=== PATIENT | male | born 1985 | race Caucasian/White ===

== ENCOUNTER → 2020-04-11 17:09 | Outpatient (CLI) | payer OTHER, SELFPAY ==
[2020-04-11 07:10] VITALS: BMI 33.8
== END ==
PROVIDERS: Referring Provider Physician Assistant Surgical; Visit Provider Physician Assistant Surgical
DX: Z20.828 Contact with and (suspected) exposure to other viral communicable diseases (principal)
CPT/HCPCS: 87635; C9803; U0003

== ENCOUNTER 2022-01-13 11:04 | Emergency (ER) | payer OTHER, SELFPAY ==
[2022-01-13 11:07] VITALS: BP 135/52; PULSE 82; RESP 17; TEMP 36.4; O2SAT 99; BMI 38.1
--- NOTE | 2022-01-13 11:26 | CT_ITS ---
STUDY: CT BRAIN WITHOUT CONTRAST REASON FOR EXAM: Male, 36 years old. Syncope, head injury RADIATION DOSAGE (If Supplied By Facility): CTDIvol = ( 44.99 ) mGy, DLP = ( 829.85 ) mGycm TECHNIQUE: Transaxial CT imaging of the brain was performed without administration of intravenous contrast material. Individualized dose optimization techniques were used for this CT. COMPARISON: No relevant priors. FINDINGS: Normal soft tissue structures. Normal calvarium. Normal size ventricles and extra-axial spaces for the patient''s age. Normal white matter tracts of the cerebral hemispheres. Normal basal ganglia and thalami. Normal brainstem. Normal cerebellum. There is no intracranial hemorrhage. There are no findings of an acute ischemic infarction. Partially visualized retention cyst in the right maxillary sinus. CT/Brain/Head without Contrast IMPRESSION: No acute intracranial process. Electronically Signed: Buck Richmond MD at 12:33 EDT ,
--- NOTE | 2022-01-13 11:27 | EKG12_ITS ---
Test Reason : SYNCOPE Blood Pressure : / mmHG Vent. Rate : 058 BPM Atrial Rate : 058 BPM P-R Int : 154 ms QRS Dur : 110 ms QT Int : 414 ms P-R-T Axes : -14 033 027 degrees QTc Int : 406 ms Sinus bradycardia Nonspecific ST abnormality Abnormal ECG Confirmed by OLMAN GALDAMEZ, [employer] ([id number]), state editor MANE TORRES ([id number]) on 01/14/2022 10:54:15 AM Referred By: Confirmed By:NATO THURMAN MD
--- NOTE | 2022-01-13 11:28 | EDS_ITS ---
HPI History of Present Illness Chief Complaint: Syncope Detail of Chief Complaint: Syncopal episode that occurred yesterday Informant: patient Narrative Narrative: Patient presents to the emergency department after having a syncopal episode yesterday. Patient states that he was eating lunch with his when he dropped his receipt on the ground. Patient bent over from a seated position to hand picker the receipt and had a sudden onset of severe pain in his left shoulder. Patient then developed a pain and discomfort in his head that radiated down to his chest that he became nauseated. Patient felt lightheaded. Next thing he remembered was waking up on the floor and his over him. He was unconscious for less than a minute. Patient did bite his tongue but no seizure activity was noted. Patient states he does have history of syncope and happens occasionally from time to time. He denies any chest pain or shortness of breath. He denies recent illness. Prior similar symptoms: Yes [facility] Medical History (Updated 01/13/22 @ 12:[address] Yovana Callejas, DO) Arthritis History of cancer Neck pain Shoulder pain Home Medications naproxen sodium 220 mg capsule 220 mg PO BID PRN 04/11/20 [History Last Taken Unknown] Allergy/AdvReac Type Severity Reaction Status Date / Time lidocaine Allergy Unknown Verified 01/13/22 11:06 Family History Mother Cancer Social History (Updated 04/11/20 @ 07:20 by Medhat DOLL, PA) Smoking Status: Never smoker alcohol intake: never ROS ROS ED Constitutional Constitutional ED: Reports systems reviewed and no addt'l complaints, except as documented; Denies body ache(s), change in weight or chills Eyes Eyes: Denies acute decrease in peripheral vision, change in vision, double vision or loss of vision ENT ENT ED: Reports none; Denies ear pain, lip swelling, loss taste/smell, neck pain, otalgia or sore throat Cardiovascular Cardiovascular: Reports none; Denies abdominal pain, chest pain with activity, leg edema, lightheadedness, palpitations, rapid heart rate or syncope Respiratory/Chest Respiratory/Chest: Reports none; Denies change in mental status, dry cough, dyspnea, hemoptysis, shortness of breath at rest or shortness of breath with exertion Gastrointestinal Gastrointestinal: Reports none and nausea; Denies abdominal pain, change in stool character, diarrhea, hematemesis, hematochezia, melena, rectal bleeding or vomiting Genitourinary Genitourinary ED: Reports none; Denies abdominal discomfort, anuria, dysuria, genital pain or polyuria Musculoskeletal Musculoskeletal: Reports none; Denies arthralgias, back pain, difficulty walking, extremity pain, muscle weakness or myalgias Integumentary Reports none; Denies abscess or rash Neurologic Neurologic: Reports headache(s) Psychiatric Psychiatric: Reports systems reviewed and no addt'l complaints, except as documented and none; Denies behavioral changes, confusion, difficulty concentrating, hallucinations, suicidal ideation, tactile hallucinations or visual hallucinations Endocrine Endocrinology: Denies none, cold intolerance, excessive sweating, fatigue or heat intolerance Hematologic/Lymphatic Hematologic/Lymphatic: Reports none; Denies anemia, easy bleeding or easy bruising Allergic/Immunologic Allergic/Immunologic ED: Denies as per HPI, none, lip swelling, mouth swelling, throat swelling, tongue swelling or hives EXAM Physical Exam Const Vital Signs: 01/13/22 11:07 01/13/22 11:50 Temperature 97.6 F L Temperature Source Temporal Pulse Rate 82 Pulse Rate [Lying] 54 L Pulse Rate [Sitting (for 1 minute prior to obtaining)] 63 Pulse Rate [Standing (for 1 minute prior to obtaining)] 88 Respiratory Rate 17 Blood Pressure 135/52 H Blood Pressure [Lying] 144/52 H Blood Pressure [Sitting (for 1 minute prior to obtaining)] 152/86 H Blood Pressure [Standing (for 1 minute prior to obtaining)] 151/90 H Blood Pressure Mean 79 Blood Pressure Mean [Lying] 82 Blood Pressure Mean [Sitting (for 1 minute prior to obtaining)] 108 Blood Pressure Mean [Standing (for 1 minute prior to obtaining)] 110 Pulse Ox 99 Oxygen Delivery Method Room Air Positive well nourished and well developed General Appearance ED: well developed and NAD HEENT Reports TM's clear and moist mucous membranes HEENT Narrative: Patient has superficial abrasions to the left side of the forehead and left cheek. No bony tenderness on exam. Patient does have a small bite wound to the tip of his tongue. normocephalic, atraumatic and trauma; Negative for tenderness Tympanic Membrane ED: Yes TM's clear Eyes PERRL and EOMs intact bilaterally General Eye ED: Negative for pale conjunctiva or scleral icterus Neck no lymphadenopathy, supple and no JVD General: Negative for tenderness Chest Wall inspection of chest normal and palpation of chest normal Chest: Negative for tenderness Resp normal respiratory effort and clear to auscultation bilaterally Effort and Inspection: Negative for respiratory distress or pain with movement Auscultation: Negative for rhonchi, wheezes or diminished lung sounds Cardio regular rate, regular rhythm, S1 normal heart sound, S2 normal heart sound and no murmurs Peripheral Pulses: pulses 2+ throughout GI normal to inspection, nondistended, normoactive bowel sounds, soft to palpation, non-tender, non-distended and no masses Back/Spine no CVA tenderness and no thoracic nor lumbar tenderness Extremity normal to inspection General Extremety ED: Negative for edema General Extremity: Negative for edema Neuro oriented x3, CN's II-XII intact bilaterally, no sensory deficits noted and gait normal Neuro Narrative: Finger-nose and heel melgar testing within normal limits, negative Romberg, negative for drift, fundi benign Sensorium / Orientation: awake, alert, oriented to person, oriented to place and oriented to time Motor Exam: strength 5/5 throughout and strength abnormal Psych mental status grossly normal Skin no rashes or lesions noted and no wounds MDM MDM MDM Narrative Medical decision making narrative: IV line established on arrival. Lab work unremarkable. CT scan of the brain without contrast was unremarkable. Orthostatic vitals were performed and his heart rate did go up but his blood pressure also went up and he was not dizzy with standing. At this point I suspect he likely had a vasovagal spell related to pain. Patient has had syncopal episodes in the past. Patient did hit his head and has abrasions to his head therefore I suspect he may have had a mild concussion as well that would explain some of the lightheadedness and feeling off. Patient advised to push fluids and follow-up with primary care physician in 5 to 7 days. Patient to return if condition should worsen anyway. Lab Data Attestation: I reviewed the patient's lab results. Labs: Laboratory Results - last 24 hr 01/13/22 01/13/22 11:48 11:48 WBC 8.1 RBC 5.21 Hgb 16.1 Hct 44.7 MCV 85.8 MCH 30.9 MCHC 36.0 RDW Std Deviation 38.5 RDW Coeff of Shalonda 12.4 Plt Count 220 MPV 9.9 Immature Gran % (Auto) 0.200 Neut % (Auto) 60.5 Lymph % (Auto) 28.2 Morton % (Auto) 9.6 Eos % (Auto) 1.0 Baso % (Auto) 0.5 Absolute Neuts (auto) 4.9 Absolute Lymphs (auto) 2.28 Nucleated RBC % 0 Sodium 140 Potassium 4.4 Chloride 110 H Carbon Dioxide 29.0 Anion Gap 1 L BUN 14 Creatinine 1.16 Estim Creat Clear Calc 103.34 Est GFR (MDRD) Af Amer 92 Est GFR (MDRD) Non-Af 76 BUN/Creatinine Ratio 12.1 Glucose 89 Calcium 9.4 Troponin I High Sens < 3 L Radiography Diagnostic Testing: Clinical Impression(s) from Imaging Studies Brain CT 01/13/22 11:26 IMPRESSION: No acute intracranial process. Electronically Signed: Buck Richmond MD at 12:33 EDT , EKG Initial EKG: Attestation: I personally reviewed and interpreted this EKG as follows: Comments: Sinus rhythm with a ventricular rate of [address] changes Discharge Plan Triage Chief Complaint: Syncope ED Provider: Yovana Callejas Dx/Rx/DC Orders Clinical Impression: Vasovagal syncope, Closed head injury Instructions: ED Head Injury (Adult), ED Fainting, Vagal Reaction Prescriptions: No Action naproxen sodium [Aleve] 220 mg capsule 220 mg PO BID PRNRF: 0 Primary Care Provider: Care Physician,No Primary Referrals: Chitra Serrato MD [STAFF PHYSICIAN] - 5-7 Days Care Physician,No Primary [Primary Care Provider] - Disposition Disposition: Home, Self Care
--- NOTE | 2022-01-13 11:30 | NURSING ---
NO OLD EKGS
[2022-01-13] MEDS: Diphth,Pertuss(Acell),Tet Vac 0.5 ML Vial IM (11:38)
[2022-01-13] MEDS: 0.9% Normal Saline 1,000 ML 150 ML IV (11:43)
[2022-01-13 11:50] VITALS: BP 144/52; BP 151/90; BP 152/86; PULSE 54; PULSE 63; PULSE 88
[2022-01-13 11:55] LABS: Absolute Lymphocyte Count 2.28 X10^3/uL (0.83-4.51); Absolute Neutrophil Count 4.9 X10^3/uL (2.0-7.7); Basophil# 0.04 X10^3/uL; Basophil% 0.5 % (0-1); Eosinophil# 0.08 X10^3/uL; Hematocrit 44.7 % (40-54); Hemoglobin 16.1 g/dL (13.0-16.5); Lymphocyte # 2.28 X10^3/ul (0.83-4.51); Lymphocyte % 28.2 % (19-41); Mean Corpuscular Hgb 30.9 pg (27.0-32.0); Mean Corpuscular Volume 85.8 fL (80-94); Mean Platelet Vol. 9.9 fl (6.2-12.0); Monocyte# 0.78 X10^3/uL; Monocyte% 9.6 % (0-10); NRBC Flagged by Analyzer 0 % (0-5); Neutrophil # 4.89 X10^3/uL (2.7-7.7); Neutrophil % 60.5 % (47-70); Platelet Count 220 K/mm3 (150-450); RBC Distribution Width CV 12.4 % (11.6-14.6); RBC Distribution Width SD 38.5 fl (35.1-43.9); Red Blood Count 5.21 M/mm3 (4.6-6.2); White Blood Count 8.1 K/mm3 (4.4-11.0)
[2022-01-13 12:12] LABS: Anion Gap 1 (5-15); BUN 14 mg/dL (7-18); BUN/Creat Ratio 12.1 RATIO (10-20); Calcium,Total 9.4 mg/dL (8.5-10.1); Chloride 110 mmol/L (98-107); Creatinine, Serum 1.16 mg/dL (0.70-1.30); EST Glomerular Filtration Rate 76 mL/min (>60); Est Glom Filt Rate - Afr Amer 92 mL/min (>60); Estimated Creatinine Clearance 103.34 ml/min; Glucose 89 mg/dL (74-106); Potassium 4.4 mmol/L (3.5-5.1); Sodium Level 140 mmol/L (136-145); Troponin-I HS (w/2H Reflex) < 3 pg/mL (3.0-78.0)
[2022-01-13 13:05] VITALS: BP 155/82; PULSE 59; RESP 16; O2SAT 100
[2022-01-13 13:52] LABS: Reflex Troponin-HS? (from REC) Y
== END 2022-01-13 13:07 | disposition home or self-care (01) ==
PROVIDERS: Emergency Provider Emergency Medicine; Visit Provider Emergency Medicine
DX: R55 Syncope and collapse (principal); S00.81XA Abrasion of other part of head, initial encounter; X58.XXXA Exposure to other specified factors, initial encounter; Y93.89 Activity, other specified
CPT/HCPCS: 70450; 80048; 84484; 85025; 90715; 93005; 99284; J7030

== ENCOUNTER → 2022-01-22 | Outpatient (CLI) | payer OTHER, SELFPAY | END | disposition home or self-care (01) | LOC: MFPLAB 10:36 | PROVIDERS: PCP Family Medicine; Referring Provider Family Medicine; Visit Provider Family Medicine | DX: R55 Syncope and collapse (principal); E66.9 Obesity, unspecified | CPT/HCPCS: 36415; 80061; 82607; 83036; 84443 ==

== ENCOUNTER → 2022-01-24 | Outpatient (CLI) | payer OTHER, SELFPAY ==
[2022-01-24 12:42] LABS: Vitamin B12 337 pg/mL (211-911)
[2022-01-24 12:47] LABS: Cholesterol 182 mg/dL (200); High Density Lipoprotein 38 mg/dL; Thyroid Stim Hormone (TSH) 0.29 uIU/mL (0.358-3.74); Triglycerides 163 mg/dL; Very Low Density Lipoprotein 33 mg/dL (5-40)
== END | disposition home or self-care (01) ==
LOC: MFPLAB 10:40
PROVIDERS: PCP Family Medicine; Referring Provider Family Medicine; Visit Provider Family Medicine
DX: R55 Syncope and collapse (principal); E66.9 Obesity, unspecified
CPT/HCPCS: 80061; 82607; 84443

== ENCOUNTER → 2022-01-29 | Outpatient (CLI) | payer OTHER, SELFPAY ==
[2022-01-29 12:47] LABS: Vitamin B12 481 pg/mL (211-911)
[2022-01-29 13:11] LABS: Free T3 3.6 pg/mL (2.18-3.98); T4 Total, Thyroxin 10.8 ug/dL (4.5-12.1); Thyroid Stim Hormone (TSH) 0.36 uIU/mL (0.358-3.74)
[2022-01-31 12:18] LABS: Anti-Thyroglobulin AB < 1.0 IU/mL (0.0-0.9); Thyroglobulin, Serum Qt. 46.6 ng/mL (1.4-29.2); Thyroid Peroxidase AB 15 IU/mL (0-34)
== END | disposition home or self-care (01) ==
LOC: MFPLAB 10:52
PROVIDERS: PCP Family Medicine; Visit Provider Family Medicine
DX: R79.89 Other specified abnormal findings of blood chemistry (principal); E53.8 Deficiency of other specified B group vitamins
CPT/HCPCS: 36415; 82607; 84432; 84436; 84443; 84481; 86376; 86800

== ENCOUNTER → 2022-02-15 | Outpatient (CLI) | payer OTHER, SELFPAY ==
--- NOTE | 2022-02-15 09:27 | TELEMED_ITS ---
[facility] has confirmed receipt of a request for visit. This document confirms receipt of the order initiating the consult. To find the results of the consultation, please view the patient's reports for the scanned Telemed Consult.
== END | disposition home or self-care (01) ==
LOC: PSN 07:58
PROVIDERS: PCP Family Medicine; Referring Provider Psychiatry & Neurology Neurology; Visit Provider Psychiatry & Neurology Neurology
DX: R55 Syncope and collapse (principal)
CPT/HCPCS: 95819

== ENCOUNTER → 2022-02-28 | Outpatient (CLI) | payer OTHER, SELFPAY ==
--- NOTE | 2022-02-28 10:51 | PCM.TILTTABL ---
Staff Staff: Ashley Jiménez and Katerin Trevino Summary Protocol: 70 Degree Upright Tilt Pre Test Resting HR: 75 Pre Test Resting BP: 172/82 Minimum Test HR: 70 Maximum Test HR: 127 Minimum Test BP: 123/66 Maximum Test BP: 174/81 Reason for Test Termination: Reached Maximum Test Time Physician Tilt Table Report Patient's Physicians Primary Care Physician: Berta Christensen Gripper Installer: Norberto Patino Indications/Diagnosis: Syncope Procedure Comments: The patient was brought to the tilt table laboratory and laid supine on the tilt table. The patient was awake and alert and warm and dry. The baseline heart rate was 75 bpm with a baseline blood pressure of 172/82 mmHg. The baseline cardiac rhythm was normal sinus rhythm. The patient was placed in the 70 degree upright tilt table position for approximately 20 minutes. The patient remained alert and oriented and warm and dry. During that time the minimal heart rate was 74 bpm with a minimal blood pressure of 148/71 mmHg. The maximal heart rate was 92 bpm with a maximal blood pressure of 174/81 mmHg. The cardiac rhythm remained normal sinus rhythm. The patient complained of feeling uneasy, knees feeling like buckling, feeling uncomfortable, and a little lightheaded. The patient did not lose consciousness. The patient was returned to the supine position. In the supine position the patient was administered nitroglycerin sublingual 0.4 mg x 1. The patient was returned to the 70 degree upright tilt table position for approximately 20 minutes. The patient remained alert and oriented and warm and dry. During that time the minimal heart rate was 70 bpm with a minimal blood pressure of 123/66 mmHg with a maximal heart rate of 127 bpm and a maximal blood pressure of 167/88 mmHg. The patient was noted to remain in normal sinus rhythm/sinus tachycardia. The patient complained of feeling tingly and tired, headache, nausea, lightheaded/dizzy, forehead clammy, and subsequently nausea passing and feeling better. The patient did not lose consciousness. The patient was returned to the supine position. The patient was monitored in the supine position. The patient remained alert and oriented and warm and dry. The concluding heart rate was 77 bpm with a concluding blood pressure 164/75 mmHg. The patient remained in normal sinus rhythm. The patient was without complaint. The patient was subsequently released from the tilt table laboratory. Summary: 70 degree upright tilt table study pre and post nitroglycerin challenge demonstrating symptoms compatible with vasovagal/neurocardiogenic mediated type symptoms but without reproducible syncope. This note was generated using a voice recognition system and there may be incorrect words, spelling or punctuation that were not noted when reviewing the office note prior to saving.
[2022-02-28 10:59] VITALS: BP 123/66; BP 172/82; BP 174/81
== END | disposition home or self-care (01) ==
PROVIDERS: PCP Family Medicine; Referring Provider Psychiatry & Neurology Neurology; Visit Provider Psychiatry & Neurology Neurology
DX: R55 Syncope and collapse (principal)
CPT/HCPCS: 93660; J7040; A4216

== ENCOUNTER → 2022-03-07 | Outpatient (CLI) | payer OTHER, SELFPAY | END | disposition home or self-care (01) | LOC: CVS 13:32 | PROVIDERS: PCP Family Medicine; Referring Provider Internal Medicine Cardiovascular Disease; Visit Provider Internal Medicine Cardiovascular Disease | DX: R69 Illness, unspecified (principal) ==

== ENCOUNTER → 2022-03-07 | Outpatient (CLI) | payer OTHER, SELFPAY ==
--- NOTE | 2022-03-07 12:07 | ECHOD_ITS ---
Reason For Study: syncope Procedure This was a 2D Doppler, Color Flow transthoracic echocardiogram. Exam performed in department. Left Ventricle Normal LV size. Left ventricular systolic function is normal. The estimated ejection fraction is 60 %. No evidence for diastolic dysfunction. No regional wall motion abnormalities noted. Right Ventricle Normal RV size. Normal systolic function. Atria Normal left atrium. Normal right atrium. No doppler evidence for ASD. Mitral Valve There is no mitral annular calcification. Mild mitral valve prolapse. Trivial mitral valve insufficiency. Tricuspid Valve Normal tricuspid valve. Trivial tricuspid valve insufficiency. Unable to estimate RV systolic pressure due to insufficient tricuspid regurgitant envelope. Aortic Valve The aortic valve is not well visualized. Pulmonic Valve The pulmonic valve is not well visualized. Great Vessels Normal sized aortic root. Pericardium/Pleural No pericardial effusion. MMode/2D Measurements & Calculations LVIDd: 4.8 cm IVSd: 1.1 cm Ao root diam: 3.1 cm LVIDs: 3.1 cm LVPWd: 1.5 cm FS: 35.0 % LAV(MOD-bp): 53.5 ml LVAd ap4: 36.1 cm2 SV(MOD-sp4): 67.8 ml LAV(MOD-bp) Indexed: 20.7 ml/m2 LVLd ap4: 8.9 cm LAV(MOD-sp2): 76.4 ml EDV(MOD-sp4): 118.2 ml LAV(MOD-sp4): 34.0 ml EDV(sp4-el): 124.9 ml LVAs ap4: 20.7 cm2 LVLs ap4: 7.2 cm ESV(MOD-sp4): 50.4 ml ESV(sp4-el): 50.7 ml EF(MOD-sp4): 57.4 % EF(sp4-el): 59.4 % SV(sp4-el): 74.2 ml LA A4 area: 14.7 cm2 LA dimension(2D): 3.7 cm RA A4 area: 16.4 cm2 Time Measurements MV dec time: 0.48 sec Doppler Measurements & Calculations MV E max jerrell: 52.9 cm/sec Lat Peak E' Jerrell: 12.8 cm/sec Med Peak E' Jerrell: 10.3 cm/sec MV A max jerrell: 54.3 cm/sec E/E' lat: 4.1 E/E' med: 5.1 MV E/A: 0.97 Ao V2 max: 105.3 cm/sec LV V1 max: 105.2 cm/sec MV dec slope: 109.5 cm/sec2 Ao max P.5 mmHg LV V1 max P.4 mmHg Ao V2 mean: 75.8 cm/sec LV V1 mean P.5 mmHg Ao mean P.6 mmHg LV V1 mean: 73.3 cm/sec Ao V2 VTI: 19.4 cm LV V1 VTI: 17.7 cm PA V2 max: 133.9 cm/sec PA V2 mean: 86.6 cm/sec ECHO/Echo Complete Interpretation Summary Left ventricular systolic function is normal. The estimated ejection fraction is 60 %. Mild mitral valve prolapse. Trivial mitral valve insufficiency. Trivial tricuspid valve insufficiency. Unable to estimate RV systolic pressure due to insufficient tricuspid regurgita nt envelope. No evidence for diastolic dysfunction. Ordering Physician: Norberto Patino Referring Physician: Norberto Patino Performed By: Cici Pearce RCS
--- NOTE | 2022-03-07 13:09 | STRESSREP ---
Stress Test Report Date: 03-07-2022 Procedure: Exercise tolerance test Indications: Chest pain; syncope Consent: Per the patient Procedure: The patient exercised on a Sal protocol for 7 minutes and 31 seconds completing Stage II and 1 minute and 31 seconds of Stage III achieving a peak heart rate of 166 bpm (89% predicted maximal heart rate) with a peak blood pressure 148/70 mmHg and a peak MET capacity of approximately 9 MET's. The baseline ECG demonstrated normal sinus rhythm. The peak exercise ECG demonstrated no obvious ECG changes. There was a rare PVC during exercise. The functional capacity was considered good. The patient had mild chest pressure near peak exercise. The examination was discontinued secondary to dyspnea mild chest pressure . Impression: 1. Technically adequate (percent predicted maximal heart rate greater than 85%) exercise tolerance test 2. Peak exercise ECG with no obvious ECG change 3. There was a rare PVC during exercise This note was generated with [employer] software. It may contain incorrect words, spelling, and punctuation that were not noted in checking the note before signing.
== END | disposition home or self-care (01) ==
LOC: CVS 12:05
PROVIDERS: PCP Family Medicine; Referring Provider Internal Medicine Cardiovascular Disease; Visit Provider Internal Medicine Cardiovascular Disease
DX: R55 Syncope and collapse (principal); R07.9 Chest pain, unspecified
CPT/HCPCS: 93017; 93306

== ENCOUNTER → 2022-04-18 | Outpatient (CLI) | payer OTHER, SELFPAY ==
[2022-04-18 13:24] LABS: Free T3 4.1 pg/mL (2.18-3.98); T4 Free Direct 1.05 ng/dL (0.76-1.46); Thyroid Stim Hormone (TSH) 0.22 uIU/mL (0.358-3.74)
[2022-04-20 07:41] LABS: Anti-Thyroglobulin AB < 1.0 IU/mL (0.0-0.9); Thyroglobulin, Serum Qt. 47.1 ng/mL (1.4-29.2); Thyroid Peroxidase AB 18 IU/mL (0-34)
== END | disposition home or self-care (01) ==
LOC: MFPLAB 11:24
PROVIDERS: PCP Family Medicine; Referring Provider Family Medicine; Visit Provider Family Medicine
DX: E05.90 Thyrotoxicosis, unspecified without thyrotoxic crisis or storm (principal)
CPT/HCPCS: 36415; 84432; 84439; 84443; 84481; 86376; 86800

== ENCOUNTER → 2022-07-10 | Outpatient (CLI) | payer OTHER, SELFPAY ==
--- NOTE | 2022-07-10 09:47 | NM_ITS ---
CLINICAL: 37-year-old male with history of clinical hyperthyroidism and suppression of the serum TSH level. I-123 THYROID UPTAKE and SCAN COMPARISON: None available FINDINGS: The patient was administered a 297 uCi I-123 capsule by mouth. The 4-hour I-123 radioactive iodine thyroidal uptake was calculated to be 16.0 % (normal 5 to 25 %). The 24-hour I-123 radioactive iodine thyroidal uptake was calculated to be 48.2 % (normal 5 to 40 %). The I-123 thyroid scan demonstrates accentuated homogeneous radiopharmaceutical concentration throughout the enlarged right lobe of a U-shaped thyroid gland. Heterogeneous uptake is noted in the smaller left lobe. NM/Thyroid Uptake Single or Mult IMPRESSION: 1. NORMAL 4- and ABNORMAL-ELEVATED 24-hour I-123 radioactive iodine thyroidal uptakes. 2. 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 Electronically Signed: Jaylon Man, at 23:18 EST ,
== END | disposition home or self-care (01) ==
LOC: NM 09:46
PROVIDERS: PCP Family Medicine; Referring Provider Internal Medicine Endocrinology, Diabetes & Metabolism; Visit Provider Internal Medicine Endocrinology, Diabetes & Metabolism
DX: R94.6 Abnormal results of thyroid function studies (principal)
CPT/HCPCS: 78012; A9516

== ENCOUNTER → 2023-01-14 | Outpatient (CLI) | payer OTHER, SELFPAY ==
[2023-01-14 16:16] LABS: Free T3 3.5 pg/mL (2.18-3.98); T4 Free Direct 1.11 ng/dL (0.76-1.46); Thyroid Stim Hormone (TSH) 0.15 uIU/mL (0.358-3.74)
[2023-01-14 17:00] LABS: Vitamin B12 1770 pg/mL (211-911)
== END | disposition home or self-care (01) ==
LOC: MFPLAB 12:03
PROVIDERS: PCP Family Medicine; Visit Provider Nurse Practitioner Family
DX: E53.8 Deficiency of other specified B group vitamins (principal); I47.1 Supraventricular tachycardia; E07.9 Disorder of thyroid, unspecified
CPT/HCPCS: 36415; 82607; 84439; 84443; 84481

== ENCOUNTER → 2023-01-24 | Outpatient (CLI) | payer OTHER, SELFPAY ==
[2023-01-30 13:08] LABS: PSA, Free 0.37 ng/mL; PSA, Free % 26.8 % (.); Testosterone, % Free 2.96 % (1.50-4.20); Testosterone, Total 419 ng/dL (264-916)
== END | disposition home or self-care (01) ==
LOC: MFPLAB 08:36
PROVIDERS: PCP Family Medicine; Visit Provider Family Medicine
DX: R53.83 Other fatigue (principal); Z80.42 Family history of malignant neoplasm of prostate
CPT/HCPCS: 36415; 84153; 84154; 84402; 84403

== ENCOUNTER → 2023-01-27 | Outpatient (CLI) | payer OTHER, SELFPAY ==
--- NOTE | 2023-01-28 08:23 | PFT ---
INTRODUCTION: The patient is a 37-year-old female that presents for pulmonary function studies secondary to a diagnosis of dyspnea. Respiratory therapy reported good patient effort. Bronchodilators were used during testing. INTERPRETATION: Forced expiration spirometry demonstrates no evidence of a large airways obstructive ventilatory defect. There was no significant response to aerosolized bronchodilators. Spirograms are of good quality and plateau normally. Body plethysmography was performed and revealed lung volumes to be within normal limits. Diffusing capacity by single breath CO was also within normal limits. IMPRESSION: Grossly normal pulmonary function studies.
== END | disposition home or self-care (01) ==
LOC: PSN 09:13
PROVIDERS: PCP Family Medicine; Referring Provider Nurse Practitioner Family; Visit Provider Nurse Practitioner Family
DX: R06.09 Other forms of dyspnea (principal)
CPT/HCPCS: 94060; 94726; 94729

== ENCOUNTER → 2023-05-05 | Outpatient (CLI) | payer OTHER, SELFPAY ==
--- NOTE | 2023-05-05 12:59 | US_ITS ---
STUDY: THYROID ULTRASOUND REASON FOR EXAM: Male, 38 years old. HYPERTHYROIDISM TECHNIQUE: Ultrasound evaluation of the thyroid was performed with real-time and static montiel-scale imaging. COMPARISON: None. FINDINGS: RIGHT LOBE: The right lobe of the thyroid gland is enlarged and measures 5.7 cm x 2.8 cm x 2.4 cm. There is a there is a 2.4 cm x 2.1 cm x 2.2 cm complex solid and cystic nodule in the upper pole. A similar appearing nodular density is seen in the midpole. This measures 3 cm x 2.7 size by 2.4 cm. Biopsy recommended.. LEFT LOBE: The left lobe of the thyroid gland measures 4.8 cm x 1.97 x 1.7 cm. There is a homogeneous echotexture. There is a 2.4 cm x 1.7 cm x 1.2 cm complex solid and cystic nodule in the midpole of the left lobe. There is also evidence of a 6 mm x 6 mm x 3 mm hypoechoic solid nodule in the medial lower pole adjacent to the isthmus. ISTHMUS: The isthmus measures 5.3 mm. The regional lymph nodes are normal. US/Thyroid IMPRESSION: Enlarged right lobe of the thyroid with 2 dominant complex solid and cystic masses as described. Biopsy recommended. Solid and cystic mass in the midpole of the left lobe of the thyroid. Electronically Signed: Daniele Landry MD at 8:30 EDT ,
== END | disposition home or self-care (01) ==
LOC: US 12:58
PROVIDERS: PCP Family Medicine; Referring Provider Internal Medicine Endocrinology, Diabetes & Metabolism; Visit Provider Internal Medicine Endocrinology, Diabetes & Metabolism
DX: E05.90 Thyrotoxicosis, unspecified without thyrotoxic crisis or storm (principal); Z13.1 Encounter for screening for diabetes mellitus
CPT/HCPCS: 76536

== ENCOUNTER → 2023-05-12 | Outpatient (CLI) | payer OTHER, SELFPAY ==
[2023-05-12 12:10] LABS: Erythrocyte Sedimentation Rate < 1 mm/hr (0-20)
[2023-05-12 12:11] LABS: Hematocrit 45.6 % (40-54); Hemoglobin 15.7 g/dL (13.0-16.5); Mean Corp Hgb Conc 34.4 g/dL (32-36); Mean Corpuscular Hgb 30.2 pg (27.0-32.0); Mean Corpuscular Volume 87.7 fL (80-94); Mean Platelet Vol. 10.2 fl (6.2-12.0); Platelet Count 211 K/mm3 (150-450); RBC Distribution Width CV 12.2 % (11.6-14.6); RBC Distribution Width SD 39.1 fl (35.1-43.9); White Blood Count 6.3 K/mm3 (4.4-11.0)
[2023-05-12 13:17] LABS: ALB/GLOB Ratio 1.4 RATIO (0.9-2.4); AST(SGOT) 10 U/L (15-37); Alanine Aminotransfer ALT/SGPT 26 U/L (16-61); Albumin, Serum 4.1 g/dL (3.2-5.0); Alkaline Phosphatase 70 U/L (45-117); Anion Gap 8 (5-15); BUN 11 mg/dL (7-18); BUN/Creat Ratio 9.3 RATIO (10-20); Calcium,Total 8.9 mg/dL (8.5-10.1); Chloride 108 mmol/L (98-107); Creatinine, Serum 1.18 mg/dL (0.70-1.30); EST Glomerular Filtration Rate 74 mL/min (>60); Est Glom Filt Rate - Afr Amer 89 mL/min (>60); Ferritin 116 ng/mL (26-388); Free T3 3.5 pg/mL (2.18-3.98); Glucose 91 mg/dL (74-106); Iron Binding Capacity,Total 336 ug/dL (250-450); Potassium 4.1 mmol/L (3.5-5.1); Protein, Total 7.1 g/dL (6.4-8.2); Rheumatoid Factor < 10.0 IU/mL (<15); Sodium Level 140 mmol/L (136-145); T4 Free Direct 0.96 ng/dL (0.76-1.46); Thyroid Stim Hormone (TSH) 0.29 uIU/mL (0.358-3.74)
[2023-05-12 19:23] LABS: Hemoglobin A1c 4.7 % (3.8-5.6)
[2023-05-13 14:08] LABS: ANTINUCLEAR ANTIBODIES DIRECT Negative (Negative)
[2023-05-15 17:08] LABS: Anti-Thyroglobulin AB < 1.0 IU/mL (0.0-0.9); Thyroglobulin, Serum Qt. 50.5 ng/mL (1.4-29.2); Thyroid Peroxidase AB 22 IU/mL (0-34); Thyroid Stim Immunoglob <0.10 IU/L (0.00-0.55)
== END | disposition home or self-care (01) ==
PROVIDERS: PCP Family Medicine; Visit Provider Internal Medicine Endocrinology, Diabetes & Metabolism
DX: E05.90 Thyrotoxicosis, unspecified without thyrotoxic crisis or storm (principal); Z13.1 Encounter for screening for diabetes mellitus
CPT/HCPCS: 36415; 80053; 82728; 83036; 83550; 84432; 84439; 84443; 84445; 84481; 85027; 85652; 86038; 86376; 86431; 86800

== ENCOUNTER → 2023-06-18 | Outpatient (CLI) | payer OTHER, SELFPAY ==
--- NOTE | 2023-06-18 10:04 | RAD_ITS ---
STUDY: X-RAY LEFT FOOT, FIFTH TOE REASON FOR EXAM: Male, 38 years old. Pain/injury TECHNIQUE: 3 view(s) of the toe were obtained. COMPARISON: None. FINDINGS: Normal visualized metatarsus. Normal metatarsophalangeal (M.T.P) joint. Normal interphalangeal joints. Nondisplaced fracture at the base of the proximal phalanx of the fifth toe. There is diffuse soft tissue swelling of the toe. RAD/Toe(s) Min 2 Views IMPRESSION: Nondisplaced fracture at the base of the proximal phalanx of the fifth toe with overlying soft tissue swelling. Electronically Signed: Daniele Landry MD at 10:39 EST ,
== END | disposition home or self-care (01) ==
LOC: MTRAD 10:03
PROVIDERS: PCP Family Medicine; Referring Provider Nurse Practitioner Family; Visit Provider Nurse Practitioner Family
DX: M79.675 Pain in left toe(s) (principal)
CPT/HCPCS: 73660

== ENCOUNTER → 2023-06-18 | Outpatient (CLI) | payer OTHER, SELFPAY ==
--- NOTE | 2023-06-18 11:07 | CT_ITS ---
STUDY: CT ABDOMEN AND PELVIS WITH CONTRAST REASON FOR EXAM: Male, 38 years old. Upper abdominal pain. History of prior trauma. RADIATION DOSAGE (If Supplied By Facility): CTDIvol = ( 16.97 ) mGy, DLP = ( 1429.81 ) mGycm TECHNIQUE: Transaxial images were obtained from the dome of the diaphragm to the symphysis pubis with oral contrast. Oral and amp; IV Gastrografin and amp; 100mL Isovue-300 was administered. Sagittal and coronal images were reconstructed. Individualized dose optimization techniques were used for this CT. COMPARISON: None. FINDINGS: The visualized lung bases are unremarkable. The visualized portions of the heart are within normal limits. Normal liver. Normal gallbladder and extrahepatic biliary system. Normal spleen. Normal pancreas. Normal bilateral adrenal glands. Normal right kidney. Normal left kidney. Normal visualized stomach. Normal small intestine. Scattered sigmoid diverticula. The appendix is visualized and appears normal. Normal abdominal aorta. Normal inferior vena cava. Normal retroperitoneum. Normal urinary bladder. Small bilateral inguinal hernias containing fat. Small umbilical hernia. Normal osseous structures. CT/Abdomen/Pelvis WITH Contrast IMPRESSION: Scattered sigmoid diverticula. Small bilateral inguinal hernias containing fat. Small umbilical hernia. Electronically Signed: Daniele Landry MD at 15:11 [facility] ,
[2023-06-18 14:12] LABS: EGFR FINGERSTICK > 60.0000 mL/min (>60)
== END | disposition home or self-care (01) ==
LOC: CT 11:06
PROVIDERS: PCP Family Medicine; Referring Provider Nurse Practitioner Family; Visit Provider Nurse Practitioner Family
DX: R10.9 Unspecified abdominal pain (principal)
CPT/HCPCS: 74177; Q9967

== ENCOUNTER → 2023-07-02 | Outpatient (CLI) | payer OTHER, SELFPAY ==
--- NOTE | 2023-07-02 14:40 | RAD_ITS ---
INDICATION: reinjury from previous image EXAMINATION/TECHNIQUE: X-RAY - LEFT FOOT XR Toes Min 2 Views 4 VIEWS COMPARISON: FINDINGS: No acute fracture or dislocation. Joint spaces are well-maintained. Normal alignment. Soft tissues are unremarkable. No radiopaque foreign body or soft tissue gas. RAD/Toe(s) Min 2 Views IMPRESSION: Negative. No demonstrated fracture. Electronically Signed: Mel Covarrubias MD at 23:58 EST Reading Location ID and State: [id number] / Tel , Service support ,
== END | disposition home or self-care (01) ==
LOC: MTRAD 14:19
PROVIDERS: PCP Family Medicine; Referring Provider Nurse Practitioner Family; Visit Provider Nurse Practitioner Family
DX: S92.919A Unspecified fracture of unspecified toe(s), initial encounter for closed fracture (principal); X58.XXXA Exposure to other specified factors, initial encounter
CPT/HCPCS: 73660

== ENCOUNTER → 2023-07-15 | Outpatient (CLI) | payer OTHER, SELFPAY | END | disposition home or self-care (01) | LOC: LABSPEC 11:38 | PROVIDERS: PCP Family Medicine; Referring Provider Surgery; Visit Provider Surgery | DX: Z01.818 Encounter for other preprocedural examination (principal); Z87.19 Personal history of other diseases of the digestive system | CPT/HCPCS: 87077; 87081 ==

== ENCOUNTER 2023-09-29 09:11 | Day surgery (SDC) | payer OTHER, SELFPAY ==
--- NOTE | 2023-09-22 07:21 | EKG12_ITS ---
Test Reason : PREOP Blood Pressure : / mmHG Vent. Rate : 046 BPM Atrial Rate : 046 BPM P-R Int : 186 ms QRS Dur : 092 ms QT Int : 450 ms P-R-T Axes : 024 035 035 degrees QTc Int : 393 ms Sinus bradycardia Otherwise normal ECG Confirmed by OLMAN GALDAMEZ, [employer] ([id number]), web content editor MANE TORRES ([id number]) on 09/22/2023 10:21:37 AM Referred By: Lavelle Heredia Confirmed By:NATO THURMAN MD
[2023-09-22 08:54] LABS: Hematocrit 43.7 % (40-54); Hemoglobin 15.1 g/dL (13.0-16.5); Mean Corp Hgb Conc 34.6 g/dL (32-36); Mean Corpuscular Volume 86.7 fL (80-94); Platelet Count 228 K/mm3 (150-450); RBC Distribution Width CV 12.5 % (11.6-14.6); RBC Distribution Width SD 39.3 fl (35.1-43.9); Red Blood Count 5.04 M/mm3 (4.6-6.2); White Blood Count 6.2 K/mm3 (4.4-11.0)
[2023-09-22 09:13] LABS: Anion Gap 2 (5-15); BUN 14 mg/dL (7-18); BUN/Creat Ratio 11.4 RATIO (10-20); Calcium,Total 9.1 mg/dL (8.5-10.1); Chloride 112 mmol/L (98-107); Creatinine, Serum 1.23 mg/dL (0.70-1.30); EST Glomerular Filtration Rate 70 mL/min (>60); Est Glom Filt Rate - Afr Amer 85 mL/min (>60); Glucose 119 mg/dL (74-106); Potassium 4.3 mmol/L (3.5-5.1); Sodium Level 142 mmol/L (136-145)
[2023-09-29] VITALS (13 sets, daily range): BP systolic 95–144; BP diastolic 51–76; PULSE 52–65; RESP 16–18; TEMP 36.2–37.1; O2SAT 97–100; BMI 36.8
--- OUTSIDE RECORDS SUMMARY | 2023-09-29 09:33 | XMS RPT_ITS | CCD ---
Author Name Unknown Address [address] [place] [address] [address] [place] [address] Organization [facility] Care Team Providers Care Quality Assurance Lab Technician Name Role Phone Jemma Christensen Primary Care Provider [phone] Jemma Christensen(Historical) Primary Care Provide r Unavailable Jemma Christensen(Historical) Primary Care Provide r Unavailable BrucerosaliaNorberto Unavailable Cedric Stubbs MD Unavailable Jemma Christensen DO Primary Care Provider CEDRIC STUBBS Referring Unavailable JEMMA CHRISTENSEN Primary Care Unavailable THEO LANCASTER Referring Unavailable SANTIAGO, CEDRIC Penaloza Admitting Unavailable CEDRIC STUBBS Attending Unavailable JEMMA CHRISTENSEN Primary Care Unavailable CEDRIC STUBBS Referring Unavailable JEMMA CHRISTENSEN Primary Care Unavailable SANTIAGO, CEDRIC Penaloza Referring Unavailable CEDRIC STUBBS Attending Unavailable CEDRIC STUBBS Referring Unavailable JEMMA CHRISTENSEN Primary Care Unavailable [place] Attending Unavailable YESY BATES Referring Unavailable JEMMA CHRISTENSEN Primary Care Unavailable CEDRIC HENDERSON Referring Unavailable JEMMA CHRISTENSEN Primary Care Unavailable CEDRIC STUBBS Referring Unavailable JEMMA CHRISTENSEN Primary Care Unavailable Allergies Allergy Classification Reported Allergen(s) Allergy Type Date of Onset Reaction(s) Facility (14 sources) Lidocaine; Translations: [LIDOCAINE] Drug Allergy 08-12-2018 Intolerance [facility] (14 sources) Procaine; Translations: [PROCAINE] Drug Allergy 08-12-2018 Intolerance [facility] Medications Completed/Discontinued Medications Medication Drug Class(es) Dates Sig (Normalized) Sig (Original) brompheniramine maleate 0.4 mg/ml / dextromethorphan hydrobromide 2 mg/ml / pseudoephedrine hydrochloride 6 mg/ml oral solution (5 sources) alpha-Adrenergic Agonist, Uncompetitive V-fjvndi-I-aspartat e Receptor Antagonist, Sigma-1 Agonist Start: 11-10-2018 End: 07-03-2022 take 10 mL by mouth every six hours as needed Brompheniramine-P seudoeph-DM (BROMFED DM) 2-30-10 mg/5 mL syrup Take 10 mL by mouth four times daily as needed. 200 mL 0 11/10/2018 07/03/2022 Discontinued Problems Active Problems Problem Classification Problem Date Documented Date Episodic/Chronic Cardiac dysrhythmias (1 source) Supraventricular tachycardia; Translations: [SVT (supraventricular tachycardia) (HCC)] Onset: 08-20-2022 Chronic Other ear and sense organ disorders (1 source) Hearing loss associated with syndrome; Translations: [Unspecified hearing loss, right ear] Chronic Other nutritional; endocrine; and metabolic disorders (10 sources) Body mass index 40+ - severely obese; Translations: [Morbid (severe) obesity due to excess calories] Onset: 07-03-2022 Chronic Thyroid disorders (2 sources) Hyperthyroidism; Translations: [Thyrotoxicosis, unspecified without thyrotoxic crisis or storm] Onset: 08-13-2022 Chronic Unclassified (1 source) Encounter for screening for COVID-19; Translations: [Encounter for screening for COVID-19] Onset: 08-19-2022 Past or Other Problems Problem Classification Problem Date Documented Da te Episodic/Chronic Intracranial injury (1 source) Personal history of traumatic brain injury; Translations: [Personal history of traumatic brain injury] Onset: 2022 Episodic Other connective tissue disease (12 sources) Impingement syndrome of right shoulder region; Translations: [Impingement syndrome of right shoulder] Onset: 09-14-2019 09-14-2019 Episodic Syncope (4 sources) Syncope; Translations: [Syncope and collapse] Onset: 2022 Episodic Results Test Name Value Interpretation Reference Range Facil ity Vital Signs Date Time Vital Sign Value Performing Clinician Chato wilson 08-13-2022 15:02-0500 Body height 188 cm Spring Beck APRN.CNP Work Phone: [facility] 08-13-2022 15:02-0500 Body weight 142.43 kg Spring Beck GLASS PULVERIZER EQUIPMENT OPERATOR.ANALYSIS SPECIALIST Work Phone: [facility] 08-13-2022 15:02-0500 Diastolic blood pressure 76 mm[Hg] Spring Beck GLASS PULVERIZER EQUIPMENT OPERATOR.ANALYSIS SPECIALIST Work Phone: [facility] 08-13-2022 15:02-0500 Heart rate 74 /min Spring Beck GLASS PULVERIZER EQUIPMENT OPERATOR.ANALYSIS SPECIALIST Work Phone: [facility] 08-13-2022 15:02-0500 Respiratory rate 16 /min Spring Beck GLASS PULVERIZER EQUIPMENT OPERATOR.ANALYSIS SPECIALIST Work Phone: [facility] 08-13-2022 15:02-0500 Systolic blood pressure 132 mm[Hg] Spring Beck GLASS PULVERIZER EQUIPMENT OPERATOR.ANALYSIS SPECIALIST Work Phone: [facility] 07-03-2022 08:21-0500 Body height 188 cm Cedric Stubbs MD Work Phone: [facility] 07-03-2022 08:21-0500 Body weight 142.88 kg Cedric Stubbs MD Work Phone: [facility] Encounters Encounter Date Encounter Type Care Provider Facility Start: 10-22-2022 Telephone encounter Cedric Stubbs MD Work Phone: Cardiology Procedures Date Procedure Procedure Detail Performing Clinician Start: 08-13-2022 Antibody screen CEDRIC STUBBS Plan of Treatment Date Care Activity Detail Author Start: 08-14-2023 LIPID SCREEN LIPID SCREEN [facility] Start: 08-13-2022 End: 10-13-2022 CBC panel - Blood by Automated count CBC Lab Routine Pre-op exam Expected: 08/13/2022, Expires: 10/13/2022 [facility] Work Phone: Payers Date Payer Category Payer Unknown [id number] 2018 Unknown [id number] Social History Date Type Detail Facility Start: 08-12-2018 [facility] History of tobacco use Current smoker [facility] Start: 08-12-2018 Tobacco use and exposure Ricco roberts smokeless tobacco user [facility] Start: 11-10-2018 End: 08-20-2022 Alcohol intake Current non-drinker of alcohol (finding) [facility] Start: 08-12-2018 Tobacco Comment quit 9 years ago [facility] Start: 1985 Sex Assigned At Not on file [facility] Start: 02-26-2022 End: 07-03-2022 Exposure to SARS-CoV-2 (event) Not sure [facility] Clinical Notes 2022 to 10-22-2022 Telephone Encounter - Fanny Mays - 10/22/2022 2:38 PM Alen Farr RN - 08/19/2022 3:20 PM Birgit Beck APRN.ANALYSIS SPECIALIST - 08/13/2022 3:16 PM ESTPatient Instructions Note Date & Type Note Facility 10-22-2022 Miscellaneous Notes Sent mass mailing. Dr. Stubbs is out until 02/05/23. Fanny Mays documented in this encounter [facility] 08-20-2022 Note HNO ID: [id number] Author: Theo Kumar MD Service: Cardiovascular Medicine Author Type: Fellow Type: Plan of Care Filed: 08/20/2022 5:48 PM Note Text: BRIEF EP PROCEDURE NOTE: Procedure: EP study and loop recorder implantation. Outcome: Arrhythmia not induced. Access: RFV x 1 and LFV x 2 - hemostassis with vascade Complications: None Plan: - Bedrest for 2 hours -No changes to outpatient medications upon discharge - Discharge after bed rest completed if ambulating and no issues. Full report to follow in [facility] (Under Chart Review -> Cardiac ) Theo Kumar MD Electrophysiology Fellow PGY-VII P: [phone] August 20, 2022 5:47 PM [facility] 08-19-2022 Note HNO ID: [id number] Author: Savita Farr RN Service: ? Author Type: Registered Nurse Type: Progress Notes Filed: 08/19/2022 3:20 PM Note Text: THE FOLLOWING WAS EVALUATED Motivation To Learn: Interested Family/Significant Other Support: Unable to assess - Family not present Cognitive Ability: Alert and oriented Patient Learns Best By: Individual Instruction The Following Influencing Factors Were Barriers To This Education Session: None The Following Physical Limitations Were Barriers To This Education Session: None Instruction Provided To: Patient Procedure: Radio Frequency Ablation Pre-procedure information reviewed: Patient ID verified Procedure verified Physician verified Explanation of procedure Sedation level during procedure MD medication instructions from EP lab request: He should hold his metoprolol for 2 days before. On no other meds Travel instructions/restrictions Scheduling information Possible same day discharge versus overnight hospital stay Check out time Family waiting area Physician contact with family after procedure Post Procedure Expectations reviewed: Inpatient hospital stay Post procedure antiarrhythmics and anticoagulation will be discussed with Physician, nurse practitioner or Physician assistant terminal manager upon discharge Instructions for transmitting EKG to Monitoring Center 3 month follow up instructions Contact number for information and questions Patient Evaluation: Verbalizes understanding Follow Up Plan: Follow up as directed by . Supplemental Material Given: Written Material Patient education regarding radiation exposure. Instructed By Savita Farr RN, RN. In Department of CARDIOLOGY. [facility] 08-19-2022 History of Presen t illness Narrative THE FOLLOWING WAS EVALUATED Motivation To Learn: Interested Family/Significant Other Support: Unable to assess - Family not present Cognitive Ability: Alert and oriented Patient Learns Best By: Individual Instruction The Following Influencing Factors Were Barriers To This Education Session: None The Following Physical Limitations Were Barriers To This Education Session: None Instruction Provided To: Patient Procedure: Radio Frequency Ablation Pre-procedure information reviewed: Patient ID verified Procedure verified Physician verified Explanation of procedure Sedation level during procedure medication instructions from EP lab request: He should hold his metoprolol for 2 days before. On no other meds Travel instructions/restrictions Scheduling information Possible same day discharge versus overnight hospital stay Check out time Family waiting area Physician contact with family after procedure Post Procedure Expectations reviewed: Inpatient hospital stay Post procedure antiarrhythmics and anticoagulation will be discussed with Physician, nurse practitioner or Physician assistant terminal manager upon discharge Instructions for transmitting EKG to Monitoring Center 3 month follow up instructions Contact number for information and questions Patient Evaluation: Verbalizes understanding Follow Up Plan: Follow up as directed by . Supplemental Material Given: Written Material Patient education regarding radiation exposure. Instructed By Savita Farr, RN, RN. In Department of CARDIOLOGY. documented in this encounter [facility] 08-19-2022 Note Education (EPSMN) PAULO HASSAN ([id number]) 1985 M Date Time Provider Department 08/19/22 YESY BATES EPSMN Reason for Visit: Patient Education [91] Cmt: EPS During your visit today, we recorded the following information about you: Allergies As of Date: 08/19/2022 Noted Allergy Reaction LIDOCAINE 08/12/2018 5 - Intolerance Comments: Does not work well for him NOVACAINE (PROCAINE) 08/12/2018 5 - Intolerance Comments: Do not work well for him Date Reviewed: 08/13/2022 Reviewed by: Spring Beck APRN.ANALYSIS SPECIALIST - Fully Assessed Prescriptions as of 08/19/2022 - multivit-min/FA/lycopen/lutein (CENTRUM SILVER MEN ORAL) Take 1 tablet by mouth once daily. - naproxen sodium (ALEVE) 220 mg tablet Take 440 mg by mouth once daily as needed. - methIMAzole (TAPAZOLE) 5 mg tablet Take 2.5 mg by mouth once daily. - metoprolol succinate ER (TOPROL XL) 25 mg 24 hr tablet Take 25 mg by mouth once daily. Encounter Status:Closed by SAVITA FARR RN on 08/19/22 [facility] 08-19-2022 Note HNO ID: [id number] Author: Mechelle Snyder LPN Service: ? Author Type: LICENSED NURSE Type: Progress Notes Filed: 08/19/2022 11:03 AM Note Text: Nurse visit .Nasopharyngeal swab collected, patient tolerated well.Mechelle Snyder LPN [facility] 08-19-2022 Influenza virus A and B RNA and SARS-CoV-2 (COVID-19) N gene panel FENG+probe (Resp) COVID 19 RESULT: SARS-CoV-2 (Agent of COVID-19) Not Detected by RT-PCR or equivalent method. 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 Pre-op exam Preoperative examination, unspecified Encounter for screening for COVID-19 SVT (supraventricular tachycardia) (HCC) Other specified cardiac dysrhythmias [facility]* Diagnosis Syncope, unspecified syncope type- Primary Encounter for screening for COVID-19 SVT (supraventricular tachycardia) (HCC) Other specified cardiac dysrhythmias documented in this encounter [facility] for referral (narrative)* Outpatient Procedure (Routine) - Authorized Specialty Diagnoses / Procedures Referred By Contac t Referred To Contact [facility] VASCULAR IDER Diagnoses Syncope, unspecified syncope type Procedures ECG COMPLETE ECG ROUTINE ECG W/LEAST 12 LDS W/I&R Cedric Stubbs MD [address] [place] [address] [address] Referral ID Status Reason Start Date Expiration Date Visits Requested Visits Authorized [id number] Authorized Auto-Generat ed Referral 08/14/2022 08/14/2023 1 1 [facility] Summary Purpose Family History No Family History Records FoundNo Family History Records FoundNo Family History Records FoundNo Family History Records Found Advance Directives No Advanced Directives Records FoundNo Advanced Directives Records FoundNo Advanced Directives Records FoundNo Advanced Directives Records Found Health Concerns Infection Onset Date Last Indicated Resolved Time COVID-19 Rule-Out 08/19/2022 08/19/2022 08/19/2022 2:59 PM EST Additional Source Comments (unrecognized sect ion and content) No Status Records FoundNo Status Records FoundNo Status Records FoundNo Status Records Found INFORMATION SOURCE (unrecogn ized section and content) DATE CREATED AUTHOR AUTHOR'S ORGANIZ ATION 09/07/2019 [facility] DATE CREATED AUTHOR AUTHOR'S ORGANIZ ATION 08/19/2022 [facility] DATE CREATED AUTHOR AUTHOR'S ORGANIZ ATION 08/21/2022 [facility] Source Comments (unrecognize d section and content) In the event this informatio n is protected by the Federal Confidentiality of Alcohol and Drug Abuse Patient Records regulations: The Federal rules restrict any use of the information to criminally investigate or prosecute any alcohol or drug abuse patient.[facility] the event this information is protected by the Federal Confidentiality of Alcohol and Drug Abuse Patient Records regulations: The Federal rules restrict any use of the information to criminally investigate or prosecute any alcohol or drug abuse patient.[facility] the event this information is protected by the Federal Confidentiality of Alcohol and Drug Abuse Patient Records regulations: The Federal rules restrict any use of the information to criminally investigate or prosecute any alcohol or drug abuse patient.[facility] the event this information is protected by the Federal Confidentiality of Alcohol and Drug Abuse Patient Records regulations: The Federal rules restrict any use of the information to criminally investigate or prosecute any alcohol or drug abuse patient.[facility] the event this information is protected by the Federal Confidentiality of Alcohol and Drug Abuse Patient Records regulations: The Federal rules restrict any use of the information to criminally investigate or prosecute any alcohol or drug abuse patient.[facility] the event this information is protected by the Federal Confidentiality of Alcohol and Drug Abuse Patient Records regulations: The Federal rules restrict any use of the information to criminally investigate or prosecute any alcohol or drug abuse patient.[facility] the event this information is protected by the Federal Confidentiality of Alcohol and Drug Abuse Patient Records regulations: The Federal rules restrict any use of the information to criminally investigate or prosecute any alcohol or drug abuse patient.[facility] the event this information is protected by the Federal Confidentiality of Alcohol and Drug Abuse Patient Records regulations: The Federal rules restrict any use of the information to criminally investigate or prosecute any alcohol or drug abuse patient.[facility] the event this information is protected by the Federal Confidentiality of Alcohol and Drug Abuse Patient Records regulations: The Federal rules restrict any use of the information to criminally investigate or prosecute any alcohol or drug abuse patient.[facility] the event this information is protected by the Federal Confidentiality of Alcohol and Drug Abuse Patient Records regulations: The Federal rules restrict any use of the information to criminally investigate or prosecute any alcohol or drug abuse patient.[facility] the event this information is protected by the Federal Confidentiality of Alcohol and Drug Abuse Patient Records regulations: The Federal rules restrict any use of the information to criminally investigate or prosecute any alcohol or drug abuse patient.[facility] the event this information is protected by the Federal Confidentiality of Alcohol and Drug Abuse Patient Records regulations: The Federal rules restrict any use of the information to criminally investigate or prosecute any alcohol or drug abuse patient.[facility] Reason for Visit (unrecogniz ed section and content) Specialty Diagnoses / Procedures Referred By Radha garcía Referred To Contact Radiology / RADIO MRI Diagnoses Syncope and collapse Personal history of traumatic brain injury MRI BRAIN W/WO CONTRAST R55, Z87.820, ORDER IN SCANNED DOCUMENTS Procedures MRI BRAIN BRAIN STEM W/O W/CONTRAST MATERIAL MRI WWO NEU1 B 350 Theo Lancaster MD [address] [place] [address] Radio Mri [facility] [address] [place] [address] Referral ID Status Reason Start Date Expiration Date Visits Re quested Visits Authorized [id number] Closed 02/16/2022 04/02/2022 1 1 Reason Comments Received Outside Medical Records Records -31-pages Reason Comments Appointment New Patient Reason Comments Received Outside Medical Records Reason Comments Schedule Surgery EPS- EP Study +/- SV T RFA, +/- Loop Reason Comments Syncope Reason Comments Patient Education EPS Reason Comments Appointment Cancellation 01/22/23 Care Teams (unrecognized sec tion and content) Quality Assurance Lab Technician Relationship Specialty Start Date End Date Jemma Christensen [address] [facility], [facility] [address] [place] [address] PCP - General 02/22/22 Quality Assurance Lab Technician Relationship Specialty Start Date End Date Jemma Christensen(Historical) PCP - General 02/22/22 Quality Assurance Lab Technician Relationship Specialty Start Date End Date Jemma Christensen(Historical) PCP - General 02/22/22 Quality Assurance Lab Technician Relationship Specialty Start Date End Date Jemma Christensen, DO [address] [place] [address] PCP - General Family Medicine 07/03/22 Norberto Patino [address] [place] [address] Referring Cardiology 07/03/22 Cedric Stubbs MD [address] [place] [address] Primary Staff Physician Cardiology 07/03/22 Quality Assurance Lab Technician Relationship Specialty Start Date End Date Jemma Christensen, DO [address] [facility] [address] [place] [address] PCP - General Family Medicine 07/03/22 Norberto Patino [address] [place] [address] Referring Cardiology 07/03/22 Cedric Stubbs MD [address] [place] [address] Primary Staff Physician Cardiology 07/03/22 Quality Assurance Lab Technician Relationship Specialty Start Date End Date Jemma Christensen, DO [address] [facility] [address] [place] [address] PCP - General Family Medicine 07/03/22 Norberto Patino [address] [place] [address] Referring Cardiology 07/03/22 Cedric Stubbs MD [address] [place] [address] Primary Staff Physician Cardiology 07/03/22 Quality Assurance Lab Technician Relationship Specialty Start Date End Date Jemma Christensen, DO [address] [place] [address] PCP - General Family Medicine 07/03/22 Norberto Patino [address] [place] [address] Referring Cardiology 07/03/22 Cedric Stubbs MD [address] [place] [address] Primary Staff Physician Cardiology 07/03/22 Quality Assurance Lab Technician Relationship Specialty Start Date End Date Jemma Christensen, DO [address] [place] [address] PCP - General Family Medicine 07/03/22 Norberto Patino [address] [place] [address] Referring Cardiology 07/03/22 Cedric Stubbs MD [address] [place] [address] Primary Staff Physician Cardiology 07/03/22 Quality Assurance Lab Technician Relationship Specialty Start Date End Date Jemma Christensen, DO [address] [place] [address] PCP - General Family Medicine 07/03/22 Norberto Patino [address] [place] [address] Referring Cardiology 07/03/22 Cedric Stubbs MD [address] [place] [address] Primary Staff Physician Cardiology 07/03/22 Quality Assurance Lab Technician Relationship Specialty Start Date End Date Jemma Christensen, DO [address] [place] [address] PCP - General Family Medicine 07/03/22 Norberto Patino [address] [facility] [address] [place] [address] Referring Cardiology 07/03/22 Cedric Stubbs MD [address] [place] [address] Primary Staff Physician Cardiology 07/03/22 FOR RECORDS PERTAINING TO PATIENTS WHO ARE OR HAVE BEEN ENROLLED IN A CHEMICAL DEPENDENCY/SUBSTANCEABUSE PROGRAM, SOME INFORMATION MAY BE OMITTED. This clinical summary was aggregated from multiple sources. Caution should be exercised in using it in the provision of clinical care. This summary normalizes information from multiple sources, and as a consequence, information in this document may materially change the coding, format and clinical context of patient data. In addition, data may be omitted in some cases. CLINICAL DECISIONS SHOULD BE BASED ON THE PRIMARY CLINICAL RECORDS. [facility]. provides no warranty or guarantee of the accuracy or completeness of information in this document.
[2023-09-29] MEDS: Lactated Ringers 1,000 ML 15 ML IV ×2 (09:59→16:26)
--- NOTE | 2023-09-29 11:18 | PCM.HP.BLA ---
History and Physical Date of Admission: 09/29/23 Date of Service: 07/15/23 MR#: [id number] Acct: [id number] Name: NAKUL HASSAN Rep #: [id number] : 1985 Provider: Dr. Lavelle Heredia MD Age/Sex: 38/M Location: [facility] Status: Signed Intake Vital Signs 01/07/2309:07 07/15/2308:28 Height 6 ft 2 in 6 ft 2 in Weight: 301 lb BMI 38.6 BP 154/85 H Blood Pressure Location Rt brachial Position Sitting Respiration 18 Pulse 78 Pulse Source Monitor Temp 97.4 F L Temp Source Temporal Pulse Oximetry (%) 98 Oxygen Delivery Method room air Intake Visit Reasons: UMBILICAL & INGUINAL HERNIA Chief Complaint: umbilical and bilateral inguinal hernias Supervisor Transcribing Operators Required: No Is patient in pain?: No Allergies lidocaine Allergy (Verified 07/15/23 08:30) Unknown Medications metoprolol succinate 25 mg tablet,extended release 24 hr 25 mg PO DAILY #90 tabs 06/16/23 [Rx] cyclobenzaprine 5 mg tablet 5 mg PO TID PRN 07/15/23 [History Confirmed 07/15/23] meloxicam 15 mg tablet 15 mg PO DAILY 07/15/23 [History Confirmed 07/15/23] PFSH Medical History (Updated 07/15/23 @ 15:[address] Lavelle Heredia MD) Abnormal results of thyroid function studies Arthritis Cancer Contact with and (suspected) exposure to other viral communicable diseases Dysautonomia-like disorder Headache Hearing problem Heart murmur History of back problems History of emotional problems Hives Irritable bowel syndrome (IBS) Neck pain Nonrheumatic mitral (valve) prolapse Paroxysmal atrial tachycardia Paroxysmal supraventricular tachycardia Pre-op testing Seasonal allergies Shoulder pain Skin cancer Syncope and collapse Traumatic brain injury Vitamin deficiency Surgical History (Updated 07/15/23 @ 08:27 by Isabel Schulte LPN) History of basal cell carcinoma excision History of dental surgery History of removal of cyst Family History Mother Cancer Rectal cancer MelanomaGrandfather Prostate cancer DementiaFather Prostate cancerOther Alcohol abuse Anemia Anxiety Arthritis Colon cancer Depression Diabetes Mental disorder Skin cancer Social History Smoking Status: Former smoker how long ago did patient quit smokin alcohol intake: never substance use type: does not use caffeine: Yes Type: coffee Number of servings: 3 what type of physical activity do you participate in: walking misty/taoism: None seatbelt use: always HPI HPI HPI: Patient is a 38 male who presents for further evaluation of newly diagnosed hernias. He shares that he believed he had a hernia right above the bellybutton since March but he was told by multiple providers that this did not represent a hernia. He then shares that he developed discomfort right at his bellybutton in the last month as he tripped over his dog. This also resulted in a broken toe. He has had tenderness at this site ever since. He went on to receive CT imaging that showed not only an umbilical hernia but bilateral inguinal hernias as well. He comments that he does not feel these latter hernias and has had never had pain in these areas. 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 He shares that he experiences these symptoms every day he performs this route. He also shares that he is simply not able to obtain light duty through his job and he has learned this directly when inquiring about it on behalf of his broken toe. He reports his daily physical demand to include lifting anywhere between 25 and 150 pounds and repetition. Fortunately he confirms there is been no change to his bowel function. Patient has a personal history of smoking, but he shares this was remote and that he stopped approximately 14 years ago. Patient also has a personal history of recurrent cutaneous infections which she describes as underarm irritations?first experienced while he was on deployment to [place] and then while working on a friend's car. Pertinent surgical history includes: No prior abdominal surgery. Patient is diagnosed with dysautonomia. He initially states that it has not been fixed or addressed . However, he goes on to detail that he is the recipient of a loop recorder, has undergone evaluation with EEG and tilt table testing. He also was evaluated for possible thyroid length to his symptoms. He shares that he will pass out due to pain. He shares the last time he passed out was January 2022 when he reached under a chair for a receipt and felt a muscle cramp in his shoulder. ROS General General: Yes fatigue Skin Skin: Yes rash and changing moles Musc Musculoskeletal: Yes back problems and arthritis Cardio Cardiovascular: Yes murmur and atrial fibrillation Psych Psychiatric: Yes depression Gastro Gastrointestinal: Yes acid reflux Exam Const General: cooperative, comfortable and anxious Orientation: alert, awake and oriented x3 Resp Effort & Inspection: normal respiratory effort GI Other: Hirsute, no visible herniation, however patient has palpable shar of fat both in and epigastric position approximately 2 cm cephalad to his umbilicus where there is a second tuft of fat. Both sites are markedly tender with palpation. Other: Patient with bilaterally descended testes, however the right is somewhat larger than the left. Patient has tenderness with exam of both spermatic cords, but I am not able to easily detect hernia defects on either side. 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 Moreover, he relates a history of some tenderness and bulging above his umbilicus and, indeed, with review of his CT imaging he has a small epigastric hernia as well. As he describes his history, Mr. Hassan appears most symptomatic from his umbilical and epigastric hernias. These are small in size measuring 1.4 and 1.2 cm in dimension across the fascial defects, respectively, by CT imaging. It is difficult to discern whether these are reducible given patient's limited exam due to tenderness. I do not at this time clearly palpate inguinal hernia defects and believe that the CT findings could simply represent cord lipomas. Therefore, it is my recommendation to proceed with umbilical and epigastric hernia repair in a minimally invasive fashion so that we can confirm visualization of the defects as well as achieve a wide mesh overlap of both areas given patient's work duties. At that time I will look to perform diagnostic laparoscopy as well to confirm the presence or absence of his inguinal hernias. I also detailed that this recovery would include no lifting of greater than 10 pounds for a period of 5 weeks postoperatively. Mr. Hassan is appreciative of this information and plan. Lastly we will look to obtain a nasal swab to screen him for any staph colonization that may require treatment prior to mesh placement. ? Robot-assisted umbilical and epigastric hernia repair with mesh placement at first mutually available date. Procedure to be performed with outpatient disposition. I have examined the patient the following changes are noted: Patient confirms that he completed staph eradication protocol with both mupirocin and Hibiclens. He also confirms that he is prepared to assume the activity restrictions discussed above and has cleared the way for this to occur through work. We did review specific activity concerns and clarified that he is free to begin walking after the procedure. I also encouraged him to be preemptive with any coughing, sneezing, or constipation concerns. He expressed understanding of this information and denied further questions. Will proceed to the operating room for robot-assisted umbilical hernia repair with mesh as discussed in greater detail above.
[2023-09-29] MEDS: 0.9% Normal Saline (Pres. free 10 ML Vial (11:40)
[2023-09-29] MEDS: BUPIVACAINE LIPOSOME/PF 20 ML VIAL OPERA.SITE (11:40)
[2023-09-29] MEDS: Bupivacaine 0.25% 30 ML Vial (11:40)
[2023-09-29] MEDS: Cefazolin 3 GM in 0.9% Normal Saline (100mL Bag) 100 ML IV (11:40)
--- NOTE | 2023-09-29 13:31 | OP.PCM_ITS ---
Report of Operation Date of Procedure: 09/29/23
--- NOTE | 2023-09-29 13:31 | PCM.OPRPT ---
Report of Operation Date of Procedure: 09/29/23 Pre-Operative Diagnosis: 1. Umbilical hernia 2. Epigastric hernia Post-Operative Diagnosis: Same Surgery/Procedure Performed:: Robot-assisted umbilical and epigastric hernia repairs with mesh placement Description of Surgical Findings:: ? Fat-containing epigastric and umbilical hernias spaced approximately 1.5 cm apart along the midline Surgeon: Lavelle Heredia oriental rug stretcher: Ce Carrizales oriental rug stretcher: Khari Kirby Type of Anesthesia: General/Supplemental Anesthesiologist: Tremayne Beasley Specimen's removed: None Estimated Blood Loss (mL): 5 Description of Procedure: After appropriate identification in the preoperative holding area, the patient was brought to the operating room suite where he was positioned supine the operating table. Preoperative antibiotics were administered. Patient was then induced with a general anesthetic. Patient's abdomen was prepped and draped in the usual sterile fashion. A formal timeout followed to confirm patient and procedure. Procedure was begun with a Veress entry at Noriega's point. Once the set point pressure was reached, this Veress needle was exchanged for an optical trocar and an optical entry was made in this location. Laparoscopic investigation revealed no inadvertent injury to the viscera below. 2 additional 8 mm robotic trochars were placed along the abdominal wall laterally taking care to avoid the bony prominences of the costal margin and the ASIS. A transversus abdominis plane block was created with a combination solution of Marcaine, Exparel, and injectable saline under laparoscopic vision as these ports were placed. The robot was then brought in and docked in standard fashion. Robotically a peritoneal flap was raised approximately 2 cm medial from my trochars and carried this away towards the contralateral abdominal wall. Great care was taken to lower the peritoneum off of the posterior rectus sheath and avoid any rents in the peritoneal flap. Perforating vessels were sealed with bipolar energy to maintain hemostasis as this flap dissection proceeded. I then addressed the umbilical hernia directly by opening the scar tissue about the hernia sac and carefully applying manual traction downward until the hernia was fully reduced. A significant amount of fatty tissue was reduced back towards the peritoneum. A second hernia was found approximately a centimeter and a half cephalad and was more easily reduced of its fatty content as well. Then the peritoneal flap was then further dissected laterally until it appeared we had adequate width. This was confirmed directly by measurement from a ruler. Each hernia defect was closed with a #1 stratafix suture by running the fascial defect closed and then running the suture back upon itself. Next a progress mesh was cut down to a 13 x 8 cm dimensions with the midline marked and was introduced into the peritoneum. The mesh was unfolded and pressed into place, however, the edge nearest the robotic ports continued to fall away from the abdominal wall so I chose to place 2 interrupted 3-0 Vicryl sutures in the midportion of the mesh to tack it loosely to the underside of the abdominal wall and prevent it from losing its coaptation with the abdominal wall until after the peritoneal pocket could be closed. Lastly the peritoneum was closed with 3 oh V-Loc suture run back upon itself. The robot was then undocked and the trocars were removed. Additional local anesthetic was instilled and the port sites were closed with interrupted 4-0 Monocryl in subcuticular fashion. Steri-Strips and OpSite dressings were applied. Patient was transferred to PACU for ongoing care. Grafts/Implants Used: Program mesh Lot [id number], ref [id number] exp 05/03/2026 Complications None Admit VTE Documentation VTE Mechan Device Prophylaxis: SCD's Procedures Digestive 40xxx-49xxx: 77824 RPR AA HRN 1ST < 3 CM RDC
--- NOTE | 2023-09-29 13:42 | DCINST_ITS ---
Discharge Instructions Diet Discharge Diet: No restrictions Activity Discharge Activity: May Not Drive (While taking narcotic pain medication) and May Shower May shower in (days): 2 Ice area for (Minutes): 20 Lifting Restrictions: No lifting greater than 10 pounds for the next 5 weeks Dressing / Incision Call your doctor if your incision/area has: Continuous Slow Oozing, Increased Pain/ Swelling, Increased Redness, Foul Smelling Discharge and Swelling at the incision site Call your doctor if you observe: Fever of 101 or Higher, Inability to urinate and Inability to have a bowel movement Change Dressing in: 2 days (Please leave Steri-Strips intact until they fall off spontaneously or are taken off at your follow-up visit) Remove Dressing in: 2 days Cleanse incision/area with: Soap & Water and Keep Dressing Clean & Dry Follow Up Care Please Follow Up With: Lavelle Heredia MD When: 1 week postop Test Results: Test results from this visit will be discussed in further detail at your follow- up appointment, if applicable. Discharge Plan Admission Primary Reason for Your Visit: Umbilical and epigastric hernia repairs Attending Provider: Lavelle Heredia Primary Care Provider: Berta Christensen Discharge Orders/Prescriptions Prescriptions: New oxycodone 5 mg tablet 5 mg PO Q6H PRN (Reason: pain) 3 Days Qty: 10 0RF Continued B Complex Plus Vitamin C [id number] mg capsule 1 cap PO DAILY Rx Instructions: give with food (meal/snack) acetaminophen [Tylenol] 325 mg tablet 650 mg PO Q4H PRN (Reason: pain) metoprolol succinate 25 mg tablet extended release 24 hr 25 mg PO DAILY Qty: 90 3RF Referrals / Follow Up: Berta Christensen DO [Primary Care Provider] - Disposition Disposition (needs filled in before D/C Order can be placed): Home, Self Care
== END 2023-09-29 17:46 | disposition home or self-care (01) ==
LOC: SDC 09:12 → AC 09:14
PROVIDERS: Anesthesiology; PCP Family Medicine; Referring Provider Surgery; Visit Provider Surgery
PROC: (CPT 49593; principal; 2023-09-29 10:40)
DX: K42.9 Umbilical hernia without obstruction or gangrene (principal); K43.9 Ventral hernia without obstruction or gangrene; I47.10 Supraventricular tachycardia, unspecified; I10 Essential (primary) hypertension; G90.8 Other disorders of autonomic nervous system; Z95.818 Presence of other cardiac implants and grafts; Z79.899 Other long term (current) drug therapy; Z87.891 Personal history of nicotine dependence
CPT/HCPCS: 49593; S2900; 00750; 36415; 80048; 85027; 93005; J7120; J0330; J2405; J3490

== ENCOUNTER → 2024-03-15 | Outpatient (CLI) | payer OTHER, SELFPAY ==
--- NOTE | 2024-03-15 14:07 | ECHOD_ITS ---
Reason For Study: MVP Procedure This was a 2D Doppler, Color Flow transthoracic echocardiogram. Exam performed in department. Left Ventricle Normal size and thickness. The left ventricular ejection fraction is 60 %. Normal diastololic function. Right Ventricle Normal right ventricle. Atria The left and right atria are normal. Mitral Valve No mitral valve prolapse noted. Mild mitral valve regurgitation. Tricuspid Valve Trivial tricuspid valve insufficiency. Normal pulmonary artery pressure. Aortic Valve Trisinus/trileaflet aortic valve. Pulmonic Valve Mild (1+) pulmonic valve insufficiency. Great Vessels Normal sized aortic root. Pericardium/Pleural No pericardial effusion. MMode/2D Measurements & Calculations LVIDd: 5.1 cm IVSd: 1.3 cm Ao root diam: 3.0 cm LVIDs: 2.9 cm LVPWd: 1.3 cm RVDd: 3.7 cm FS: 42.0 % LAV(MOD-bp): 62.1 ml LVAd ap4: 41.0 cm2 LVAd ap2: 35.9 cm2 LAV(MOD-bp) Indexed: 24.5 ml/m2 LVLd ap4: 9.3 cm LVLd ap2: 9.0 cm LAV(MOD-sp2): 59.3 ml EDV(MOD-sp4): 148.2 ml EDV(MOD-sp2): 116.8 ml LAV(MOD-sp4): 57.5 ml EDV(sp4-el): 153.1 ml EDV(sp2-el): 121.3 ml LVAs ap4: 21.7 cm2 LVAs ap2: 23.1 cm2 LVLs ap4: 8.1 cm LVLs ap2: 8.2 cm ESV(MOD-sp4): 50.0 ml ESV(MOD-sp2): 54.4 ml ESV(sp4-el): 49.7 ml ESV(sp2-el): 55.3 ml EF(MOD-sp4): 66.3 % EF(MOD-sp2): 53.4 % EF(sp4-el): 67.5 % SV(MOD-sp4): 98.2 ml SV(MOD-sp2): 62.3 ml SV(sp4-el): 103.3 ml LA dimension(2D): 4.4 cm LA A4 area: 19.7 cm2 RA A4 area: 13.7 cm2 TAPSE: 2.0 cm Time Measurements MV dec time: 0.21 sec Doppler Measurements & Calculations MV E max jerrell: 69.3 cm/sec Lat Peak E' Jerrell: 11.9 cm/sec Med Peak E' Jerrell: 9.5 cm/sec MV A max jerrell: 48.9 cm/sec E/E' lat: 5.8 E/E' med: 7.3 MV E/A: 1.4 MV dec slope: 329.7 cm/sec2 Ao V2 max: 107.8 cm/sec LV V1 max: 73.2 cm/sec Ao max P.6 mmHg LV V1 max P.1 mmHg PA V2 max: 136.7 cm/sec TR max jerrell: 194.5 cm/sec PA V2 mean: 88.2 cm/sec TR max P.1 mmHg ECHO/Echo Complete Interpretation Summary The left ventricular ejection fraction is 60 %. No mitral valve prolapse noted. Mild mitral valve regurgitation. Mild (1+) pulmonic valve insufficiency. Ordering Physician: Eros Telles Referring Physician: Reggie Barrios Performed By: Dawn Cadet RDCS
== END | disposition home or self-care (01) ==
LOC: CVS 14:05
PROVIDERS: PCP Family Medicine; Referring Provider Internal Medicine Cardiovascular Disease; Visit Provider Internal Medicine Cardiovascular Disease
DX: I34.1 Nonrheumatic mitral (valve) prolapse (principal); R55 Syncope and collapse
CPT/HCPCS: 93306

== ENCOUNTER → 2024-05-17 | Outpatient (CLI) | payer OTHER, SELFPAY ==
[2024-05-17 17:52] LABS: Absolute Lymphocyte Count 2.19 X10^3/uL (0.83-4.51); Absolute Neutrophil Count 4.2 X10^3/uL (2.0-7.7); Basophil# 0.02 X10^3/uL; Basophil% 0.3 % (0-1); Eosinophil# 0.08 X10^3/uL; Eosinophils% 1.1 % (0-5); Hematocrit 42.2 % (40-54); Hemoglobin 14.8 g/dL (13.0-16.5); Lymphocyte # 2.19 X10^3/ul (0.83-4.51); Lymphocyte % 30.8 % (19-41); Mean Corp Hgb Conc 35.1 g/dL (32-36); Mean Corpuscular Hgb 30.6 pg (27.0-32.0); Mean Corpuscular Volume 87.4 fL (80-94); Mean Platelet Vol. 9.9 fl (6.2-12.0); Monocyte% 8.4 % (0-10); NRBC Flagged by Analyzer 0 % (0-5); Neutrophil # 4.21 X10^3/uL (2.7-7.7); Neutrophil % 59.1 % (47-70); Platelet Count 248 K/mm3 (150-450); RBC Distribution Width CV 12.6 % (11.6-14.6); RBC Distribution Width SD 40.4 fl (35.1-43.9); Red Blood Count 4.83 M/mm3 (4.6-6.2); White Blood Count 7.1 K/mm3 (4.4-11.0)
[2024-05-17 18:42] LABS: ALB/GLOB Ratio 1.4 RATIO (0.9-2.4); AST(SGOT) 17 U/L (15-37); Alanine Aminotransfer ALT/SGPT 29 U/L (16-61); Albumin, Serum 4.2 g/dL (3.2-5.0); Alkaline Phosphatase 69 U/L (45-117); Anion Gap 4 (5-15); BUN 17 mg/dL (7-18); BUN/Creat Ratio 14.5 RATIO (10-20); Calcium,Total 8.9 mg/dL (8.5-10.1); Chloride 109 mmol/L (98-107); Creatinine, Serum 1.17 mg/dL (0.70-1.30); EST Glomerular Filtration Rate 74 mL/min (>60); Est Glom Filt Rate - Afr Amer 90 mL/min (>60); Free T3 3.4 pg/mL (2.18-3.98); Globulin 3.1 g/dL (2.2-4.2); Glucose 91 mg/dL (74-106); Potassium 4.4 mmol/L (3.5-5.1); Protein, Total 7.3 g/dL (6.4-8.2); Sodium Level 141 mmol/L (136-145); T4 Free Direct 0.98 ng/dL (0.76-1.46); Thyroid Stim Hormone (TSH) 0.207 uIU/mL (0.358-3.740)
[2024-05-19 16:11] LABS: Thyroglobulin Antibody < 1.0 IU/mL (0.0-0.9)
== END | disposition home or self-care (01) ==
LOC: MFPLAB 15:45
PROVIDERS: PCP Family Medicine; Visit Provider Family Medicine
DX: E05.90 Thyrotoxicosis, unspecified without thyrotoxic crisis or storm (principal)
CPT/HCPCS: 36415; 80053; 82306; 82533; 84439; 84443; 84481; 85025; 86800

== ENCOUNTER → 2024-05-27 | Outpatient (CLI) | payer OTHER, SELFPAY ==
--- OUTSIDE RECORDS SUMMARY | 2024-05-27 13:29 | XMS RPT_ITS | CCD ---
Author Organization [facility] Care Team Providers Care Reproductive Healthcare Assistant Name Role Phone Jemma Christensen Primary Care Provider Jemma Christensen(Historical) Primary Care Provide r Unavailable Jemma Christensen(Historical) Primary Care Provide r Unavailable Norberto Patino Unavailable Cedric Stubbs MD Unavailable Jemma Christensen DO Primary Care Provider CEDRIC STUBBS Referring Unavailable JEMMA CHRISTENSEN Primary Care Unavailable THEO LANCASTER Referring Unavailable CEDRIC HENDERSON Admitting Unavailable CEDRIC STUBBS Attending Unavailable JEMMA CHRISTENSEN Primary Care Unavailable CEDRIC STUBBS Referring Unavailable JEMMA CHRISTENSEN Primary Care Unavailable CEDRIC HENDERSON Referring Unavailable CEDRIC STUBBS Attending Unavailable CEDRIC STUBBS Referring Unavailable JEMMA CHRISTENSEN Primary Care Unavailable SPRING [place]ECK Attending Unavailable ZAN BATES Referring Unavailable JEMMA CHRISTENSEN Primary Care Unavailable CEDRIC HENDERSON Referring Unavailable JEMMA CHRISTENSEN Primary Care Unavailable CEDRIC HENDERSON Referring Unavailable JEMMA CHRISTENSEN Primary Care Unavailable Allergies Allergy Classification Reported Allergen(s) Allergy Type Date of Onset Reaction(s) Facility (14 sources) Lidocaine; Translations: [LIDOCAINE] Drug Allergy 08-12-[address] [facility] (14 sources) Procaine; Translations: [PROCAINE] Drug Allergy 08-12-[address] [facility] Medications Completed/Discontinued Medications Medication Drug Class(es) Dates Sig (Normalized) Sig (Original) brompheniramine maleate 0.4 mg/ml / dextromethorphan hydrobromide 2 mg/ml / pseudoephedrine hydrochloride 6 mg/ml oral solution (5 sources) alpha-Adrenergic Agonist, Uncompetitive P-ufdkcr-P-aspartat e Receptor Antagonist, Sigma-1 Agonist Start: 11-10-2018 End: 07-03-2022 take 10 mL by mouth every six hours as needed Brompheniramine-P seudoeph-DM (BROMFED DM) 2-30-10 mg/5 mL syrup Take 10 mL by mouth four times daily as needed. 200 mL 0 11/10/2018 07/03/2022 Discontinued Comment on above: Take 10 mL by mouth four times daily as needed. methIMAzole 5 mg oral tablet (5 sources) Thyroid Hormone Synthesis Inhibitor Start: 07-12-2022 methIMAzole (TAPAZOLE) 5 mg tablet Take 2.5 mg by mouth once daily. 0 07/12/2022 Active Comment on above: Take 2.5 mg by mouth once daily. 24 hr metoprolol succinate 25 mg extended release oral tablet (8 sources) beta-Adrenergic Pranav take 1 tablet by mouth once daily metoprolol succinate ER (TOPROL XL) 25 mg 24 hr tablet Take 25 mg by mouth once daily. 0 Active Comment on above: Take 25 mg by mouth once daily. multivit-min/FA/lycope n/lutein (CENTRUM SILVER MEN ORAL) (5 sources) Start: 03-16-2021 take 1 tablet by mouth once daily multivit-min/FA/l ycopen/lutein (CENTRUM SILVER MEN ORAL) Take 1 tablet by mouth once daily. 0 03/16/2021 Active Comment on above: Take 1 tablet [facility]. naproxen sodium 220 mg oral tablet (5 sources) Nonsteroidal Anti-inflammatory Drug Start: 03-16-2021 take 2 tablets by mouth once daily as needed naproxen sodium (ALEVE) 220 mg tablet Take 440 mg by mouth once daily as needed. 0 03/16/2021 Active Comment on above: Take 440 mg by mouth once daily as needed. Problems Active Problems Problem Classification Problem Date [...] Results Test Name Value Interpretation Reference Range Facility CBC panel Auto (Bld)on 08-20 Erythrocyte distribution width (RBC) [Ratio] 12.6 % Normal 11.5-15.0 [facility] Comment on above: Order Comment: Whit muniz Type: BLOOD SPECIMENOrdering Facility: [facility] Address: [address] [place] [address] Performed By: #### 5 8410-2 ####[facility] LABCLIA [id number] [place] [address] [place] Hematocrit (Bld) [Volume fraction] 42.1 % Normal 39.0-51.0 [facility] Comment on above: Order Comment: Mahnazi cristy Type: BLOOD SPECIMENOrdering Facility: [facility] Address: [address] [place] [address] Performed By: #### 5 8410-2 ####[facility] LABCLIA [id number] [place] [address] [place] Hemoglobin (Bld) [Mass/Vol] 15.6 g/dL Normal 13.0-17.0 [facility] Comment on above: Order Comment: Speci men Type: BLOOD SPECIMENOrdering Facility: [facility] Address: [address] Performed By: #### 5 8410-2 ####[facility] LABIA [id number] [address] [place] MCH (RBC) [Entitic mass] 31.4 pg Normal 26.0-34.0 [facility] Comment on above: Order Comment: Speci men Type: BLOOD SPECIMENOrdering Facility: [facility] Address: [address] Performed By: #### 5 8410-2 ####[facility] [id number] [address] [place] MCHC (RBC) [Mass/Vol] 37.1 g/dL High 30.5-36.0 [facility] Comment on above: Order Comment: Speci men Type: BLOOD SPECIMENOrdering Facility: [facility] Address: [address] [place], [place] [address] Performed By: #### 5 8410-2 ####[facility] LABIA [id number] [address] [place] MCV (RBC) [Entitic vol] 84.7 fL Normal 80.0-100.0 [facility] Comment on above: Order Comment: Speci men Type: BLOOD SPECIMENOrdering Facility: [facility] Address: [address] Performed By: #### 5 8410-2 ####[facility] LABIA [id number] [address] [place] Nucleated RBC (Bld) [#/Vol] 10*3/uL Normal <0.01 [facility] Comment on above: Order Comment: Speci men Type: BLOOD SPECIMENOrdering Facility: [facility] Address: [address] [place], [place] [address] Performed By: #### 5 8410-2 ####[facility] LABCLIA [id number] [place] [address] [place] Platelet mean volume (Bld) [Entitic vol] 9.7 fL Normal 9.0-12.7 [facility] Comment on above: Order Comment: Speci men Type: BLOOD SPECIMENOrdering Facility: [facility] Address: [address] [place] [address] Performed By: #### 5 8410-2 ####[facility] LABIA [id number] [place] [address] [place] Platelets (Bld) [#/Vol] 180 10*3/uL Normal 150-400 [facility] Comment on above: Order Comment: Speci men Type: BLOOD SPECIMENOrdering Facility: [facility] Address: [address] [place], [place] [address] Performed By: #### 5 8410-2 ####[facility] LABIA [id number] [place] [address] [place] RBC (Bld) [#/Vol] 4.97 10*6/uL Normal 4.20-6.00 [facility] Comment on above: Order Comment: Speci men Type: BLOOD SPECIMENOrdering Facility: [facility] Address: [address] [place] [address] Performed By: #### 5 8410-2 ####[facility] LABCLIA [id number] [place] [address] [place] WBC (Bld) [#/Vol] 7.88 10*3/uL Normal 3.70-11.00 [facility] Comment on above: Order Comment: Speci men Type: BLOOD SPECIMENOrdering Facility: [facility] Address: [address] [place], [place] [address] Performed By: #### 5 8410-2 ####[facility] LABCLIA [id number] [address] [place] [address] [place] CNOVon 08-13-2022 CNOV Office Visit (CARDMN ) PAULO HASSAN ([id number]) 1985 M Date Time Provider Department 08/13/22 2:00 PM SPRING BECK During your visit today, we recorded the following information about you: Pulse Respiration Blood pressure Weight 74/minute 16/minute 132/76 142.4 kg Height 1.88 m Spring Beck APRN.CNP 08/13/2022 3:10 PM Signed Call the EP schedulers one business day prior to your procedure at then ask for pager [phone] You may take all your regular medications the day prior to the procedure Nothing to eat or drink from midnight the night prior to the procedure Okay to take methimazole in am but no other medications the morning of the procedure unless directed differently by the Ep schedulers Arrive to J1-1 the day of the procedure then proceed to J2-1 for your procedure. You may bring your home medications with you to use at the hospital but they must be in the original containers (no pill boxes) Procedure was discussed And questions answered. We reviewed expectation after the procedure: If you experience groin pain, oozing, or growing hematoma, you should notify the office. For one week after the procedure 10 lbs lifting, pushing, pulling restriction. No regular exercise for one week, then start slow back into exercise program. Any questions or concerns call the office. Spring Beck APRN.CNP 08/13/2022 5:41 PM Signed [facility] Pe[facility] Department of Cardiovascular Medicine SECTION OF CARDIAC PACING and ELECTROPHYSIOLOGY OUTPATIENT VISIT DATE August 13, 2022 OUTPATIENT VISIT TYPE ESTABLISHED PRIMARY CARE PHYSICIAN: Jemma Christensen [address] [facility] [address] [id number] REFERRING PHYSICIAN: Zan Bates [address] [facility] [address] CHIEF COMPLAINT: Syncope HISTORY OF PRESENT ILLNESS: Mr. Hassan is a 37 year old male who presents today for pre op exam prior to EPS, possible SVT ablation and possible loop implant scheduled on 08/20/2022. He was last seen by Dr. Stubbs on 08/20/2022. He has PMHx of syncope, hyperthyroidism on Methimazole, closed head injury trauma sustained during service in armed [email or web address], right ear hearing loss, chronic musculoskeletal pain on daily Aleve. He continues to have intermittent near syncope 1-4x per month. He denies any warning. He reports feeling lightheaded, sometimes with a pain in his shoulder and then needs to sit down. The episodes last several seconds. 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 He thinks the metoprolol has lessoned the episodes but has not stopped them. He denies chest pain, shortness of breath, orthopnea, cough, edema, palpitations, PND, lightheadedness or syncope. PAST CARDIAC HISTORY: syncope PAST MEDICAL HISTORY Diagnosis Date Basal cell carcinoma (BCC) 03/2017 Hypothyroidism PTSD (post-traumatic stress disorder) Ringing in ears TBI (traumatic brain injury) PAST SURGICAL HISTORY Procedure Laterality Date CYST/MOLE REMOVAL mole removal-years ago PAST SURGICAL HISTORY OF 03/2017 removal basal cell carcinoma from scalp PAST SURGICAL HISTORY OF dental procedures SOCIAL HISTORY Social History Tobacco Use Smoking status: Former Smokeless tobacco: Former Tobacco comments: quit 9 years ago Vaping Use Vaping Use: Never used Substance Use Topics Alcohol use: No Drug use: No FAMILY HISTORY Problem Relation Age of Onset Cancer Mother pancreatic, diagnosed at age 32 Diabetes Mother other (colon polyps) Mother other (GI defect) Sister Cancer Maternal Grandmother Cancer Maternal Grandfather Cancer Paternal Grandmother pancreatic Alzheimer's Disease Paternal Grandfather ALLERGIES: ALLERGIES Allergen Reactions Lidocaine Intolerance Does not work well for him Novacaine [Procaine] Intolerance Do not work well for him MEDICATIONS: multivit-min/FA/lycopen /lutein (CENTRUM SILVER MEN ORAL) Take 1 tablet by mouth once daily. naproxen sodium (ALEVE) 220 mg tablet Take 440 mg by mouth once daily as needed. methIMAzole (TAPAZOLE) 5 mg tablet Take 2.5 mg by mouth once daily. metoprolol succinate ER (TOPROL XL) 25 mg 24 hr tablet Take 25 mg by mouth once daily. REVIEW OF SYSTEMS: GENERAL: Negative for: Weight loss or gain, Fever or Chills, Weakness and Sleep difficulties. HEENT: Negative for: Headache, Impaired Vision, Hearing Impairment, Ringing in Ears, Nosebleeds, Poor dental care, Bleeding Gums, Dentures NECK: Negative for: Swelling, Pain, Stiffness RESPIRATORY: Negative for: Cough, Blood in Sputum, Shortness of breath, Wheezing, Apnea GASTROINTESTINAL: Negative for: Trouble swallowing, Heartburn, Change in bowel habits, Blood in stool, Dark black stools MUSCULOSKELETAL: Negative for: Muscl (more content not included)... Normal [facility] CONFIRM BLOOD TYPEon 023 ABO O Normal [facility] Comment on above: Order Comment: Speci men Type: BLOOD SPECIMENOrdering Facility: [facility] Address: [address] [place] [address] Performed By: #### C ONABO ####[facility] BLOOD BANKCLIA [id number] [place] [address] [place] Rh Nom (Bld) Positive Normal [facility] Comment on above: Order Comment: Speci men Type: BLOOD SPECIMENOrdering Facility: [facility] Address: [address] [place] [address] Performed By: #### C ONABO ####[facility] BLOOD BANKCLIA [id number] [place] [address] [place] Comprehensive metabolic 2000 panelon 08-13-2022 Albumin [Mass/Vol] 4.9 g/dL Normal 3.9-4.9 [facility] Comment on above: Order Comment: Speci men Type: BLOOD SPECIMENOrdering Facility: [facility] Address: [address] [place] [address] Performed By: #### 3 024-7, 82774-9, 3051-0 ####[facility] LABCLIA [id number] [place] [address] [place] ALP [Catalytic activity/Vol] 69 U/L Normal 38-113 [facility] Comment on above: Order Comment: Speci men Type: BLOOD SPECIMENOrdering Facility: [facility] Address: [address] [place] [address] Performed By: #### 3 024-7, 14417-2, 305-0 ####[facility] LABCLIA [id number] [place] [address] [place] ALT [Catalytic activity/Vol] 20 U/L Normal 10-54 [facility] Comment on above: Order Comment: Speci men Type: BLOOD SPECIMENOrdering Facility: [facility] Address: [address] [place] [address] Performed By: #### 3 024-7, 06423-7, 305-0 ####[facility] LABCLIA [id number] [place] [address] [place] Anion gap [Moles/Vol] 12 mmol/L Normal 9-18 [facility] Comment on above: Order Comment: Speci men Type: BLOOD SPECIMENOrdering Facility: [facility] Address: [address] [place] [address] Performed By: #### 3 024-7, 07218-8, 305-0 ####[facility] LABCLIA [id number] [place] [address] [place] AST [Catalytic activity/Vol] 16 U/L Normal 14-40 [facility] Comment on above: Order Comment: Speci men Type: BLOOD SPECIMENOrdering Facility: [facility] Address: [address] [place], [place] [address] Performed By: #### 3 024-7, 85084-4, 305-0 ####[facility] LABCLIA [id number] [place] [address] [place] Bilirubin [Mass/Vol] 0.5 mg/dL Normal 0.2-1.3 [facility] Comment on above: Order Comment: Speci men Type: BLOOD SPECIMENOrdering Facility: [facility] Address: [address] [place], [place] [address] Performed By: #### 3 024-7, , 0 ####[facility] LABCLIA [id number] [place] [address] [place] Calcium [Mass/Vol] 9.8 mg/dL Normal 8.5-10.2 [facility] Comment on above: Order Comment: Speci men Type: BLOOD SPECIMENOrdering Facility: [facility] Address: [address] [place] [address] Performed By: #### 3 024-7, , 0 ####[facility] LABCLIA [id number] [place] [address] [place] Chloride [Moles/Vol] 105 mmol/L Normal 97-105 [facility] Comment on above: Order Comment: Speci men Type: BLOOD SPECIMENOrdering Facility: [facility] Address: [address] [place], [place] [address] Performed By: #### 3 024-7, , 0 ####[facility] LABCLIA [id number] [place] [address] [place] CO2 [Moles/Vol] 25 mmol/L Normal 22-30 [facility] Comment on above: Order Comment: Speci men Type: BLOOD SPECIMENOrdering Facility: [facility] Address: [address] [place], [place] [address] Performed By: #### 3 024-7, , 0 ####[facility] LABCLIA [id number] [place] [id number] [place] Creatinine [Mass/Vol] 1.21 mg/dL Normal 0.73-1.22 [facility] Comment on above: Order Comment: Speci men Type: BLOOD SPECIMENOrdering Facility: [facility] Address: [address] [address] Performed By: #### 3 024-7, 46966-3, 305-0 ####[facility] LABIA [id number] [place] [address] [place] ESTIMATED GLOMERULAR FILTRATION RATE 80 mL/min/1.73m??? Normal >=60 [facility] Comment on above: Order Comment: Whit muniz Type: BLOOD SPECIMENOrdering Facility: [facility] Address: [address] Result Comment: Carol mated Glomerular Filtration Rate (eGFR) is calculated using the 2020 CKD-EPI creatinine equation. This equation utilizes serum creatinine, sex, and age as parameters. The creatinine assay has traceable calibration to isotope dilution-mass spectrometry. Refer to KDIGO guidelines for clinical interpretation. In patients with unstable renal function, e.g. those with acute kidney injury, the eGFR may not accurately reflect actual GFR. Performed By: #### 3 024-7, 61738-0, 305-0 ####[facility] LABIA [id number] [place] [id number] [place] Glucose [Mass/Vol] 86 mg/dL Normal 74-99 [facility] Comment on above: Order Comment: Whit cristy Type: BLOOD SPECIMENOrdering Facility: [facility] Address: [address] [place] [address] Result Comment: The [place] Diabetes Association (ADA) provides guidance for cutoff values for fasting glucose and random glucose. The ADA defines fasting as no caloric intake for at least 8 hours. Fasting plasma glucose results between 100 to 125 mg/dL indicate increased risk for diabetes (prediabetes). Fasting plasma glucose results greater than or equal to 126 mg/dL meet the criteria for diagnosis of diabetes. In the absence of unequivocal hyperglycemia, results should be confirmed by repeat testing. In a patient with classic symptoms of hyperglycemia or hyperglycemic crisis, random plasma glucose results greater than or equal to 200 mg/dL meet the criteria for diagnosis of diabetes. Reference: Standards of Medical Care in Diabetes 2016, [place] [employer] Association. Diabetes Care. 2016.39(Suppl 1). Performed By: #### 3 024-7, 06136-3, 3051-0 ####[facility] LABIA [id number] [place] [address] [place] Potassium [Moles/Vol] 4.7 mmol/L Normal 3.7-5.1 [facility] Comment on above: Order Comment: Speci men Type: BLOOD SPECIMENOrdering Facility: [facility] Address: [address] [place] [address] Performed By: #### 3 024-7, 31603-5, 3051-0 ####[facility] LABIA [id number] [place] [address] [place] Protein [Mass/Vol] 7.3 g/dL Normal 6.3-8.0 [facility] Comment on above: Order Comment: Speci men Type: BLOOD SPECIMENOrdering Facility: [facility] Address: [address] [place] [address] Performed By: #### 3 024-7, 07533-5, 305-0 ####[facility] LABIA [id number] [place] [address] [place] Sodium [Moles/Vol] 142 mmol/L Normal 136-144 [facility] Comment on above: Order Comment: Speci men Type: BLOOD SPECIMENOrdering Facility: [facility] Address: [address] Performed By: #### 3 024-7, 12554-4, 3051-0 ####[facility] LABIA [id number] [place] [id number] [place] Urea nitrogen [Mass/Vol] 14 mg/dL Normal 9-24 [facility] Comment on above: Order Comment: Speci men Type: BLOOD SPECIMENOrdering Facility: [facility] Address: [address] Performed By: #### 3 024-7, 46341-0, 0 ####[facility] [id number] [place] [id number] [place] ECG COMPLETEon 08-13-2022 ECG COMPLETE Ventricular Rate : 7 4 BPM Atrial Rate : 74 BPM P-R Interval : 170 ms QRS Duration : 94 ms Q-T Interval : 398 ms QTC Calculation(Bazett) : 441 ms Calculated P Huntington : 43 degrees Calculated R Huntington : 17 degrees Calculated T Huntington : 28 degrees NORMAL SINUS RHYTHM WITH SINUS ARRHYTHMIA NORMAL ECG Confirmed by MD SLOAN HEBA ([id number]) on 08/19/2022 4:06:13 PM NAME : PAULO HASSAN PID : [id number] : 1985 Gender : Male Race : ORD : [id number] Procedure Date : Aug 13 2022 14:12:18 Edit Date : Aug 19 2022 16:06:16 Diagnosis: NORMAL SINUS RHYTHM WITH SINUS ARRHYTHMIA NORMAL ECG Confirmed by MD SLOAN HEBA ([id number]) on 08/19/2022 4:06:13 PM Test Reason : Location : 314 : J14 Overread By : MD SLOAN HEBA Edited By : MD SLOAN HEBA Referred By : CEDRIC STUBBS Acquired by : NISHA HDEZ [facility] T3Free SerPl-mCncon 08-13-19 23 Free T3 [Mass/Vol] 3.8 pg/mL Normal 2.3-4.1 [facility] Comment on above: Order Comment: Speci men Type: BLOOD SPECIMENOrdering Facility: [facility] Address: [address] [place] [address] Performed By: #### 3 024-7, 12213-8, 305-0 ####[facility] [id number] [place] [id number] [facility] T4 Free SerPl-mCncon 023 Free T4 [Mass/Vol] 1.3 ng/dL Normal 0.9-1.7 [facility] Comment on above: Order Comment: Speci men Type: BLOOD SPECIMENOrdering Facility: [facility] Address: [address] [place] [address] Performed By: #### 3 024-7, 64005-3, 3051-0 ####[facility] LABCLIA [id number] [address] TYPE AND SCREEN,30 DAYon ABO O Normal [facility] Comment on above: Order Comment: Speci men Type: BLOOD SPECIMENOrdering Facility: [facility] Address: [address] [place] [address] Performed By: #### T SCR30 ####[facility] BLOOD BANKCLIA [id number] [address] HISTORICAL AB SCR STATUS Negative Normal [facility] Comment on above: Order Comment: Speci men Type: BLOOD SPECIMENOrdering Facility: [facility] Address: [address] [place] [address] Performed By: #### T SCR30 ####[facility] BLOOD BANKCLIA [id number] [address] Rh Nom (Bld) Positive Normal [facility] Comment on above: Order Comment: Speci men Type: BLOOD SPECIMENOrdering Facility: [facility] Address: [address] [place] [address] Performed By: #### T SCR30 ####[facility] BLOOD BANKCLIA [id number] [address] [place] CNCOon 08-07-2022 CNCO Letter Text Normal [facility] CNPNon 07-05-2022 CNPN Telephone (CARDCARSON) PAULO [id number]) 1985 M Date Time Provider Department 07/05/22 CEDRIC STUBBS During your visit today, we recorded the following information about you: Savita Kapadia RN 07/05/2022 5:14 PM Signed ----- Message from Cedric Stubbs MD sent at 07/03/2022 10:54 AM EST ----- Regarding: ?SVT Please schedule him for EPS to assess for SVT and possible ablation if one is found. If no inducible SVT, then do an ILR. He should hold his metoprolol for 2 days before. On no other meds. Please schedule it on a day I can be in the lab as well. Mary Ivan Thanks. PT Savita Kapadia RN 07/05/2022 5:19 PM Signed Patient offered and accepted date of 08/20/[address] Bates and Dr. Stubbs. Patient needs OPD, EKG, Labs (CBC, BMP, TANDS, Confirm, Covid) with in 3 days of procedure. Savita Kapadia RN Allergies As of Date: 07/05/2022 Noted Allergy Reaction LIDOCAINE 08/12/2018 5 - Intolerance Comments: Does not work well for him NOVACAINE (PROCAINE) 08/12/2018 5 - Intolerance Comments: Do not work well for him Date Reviewed: 07/03/2022 Reviewed by: Ayaka Ivy RN - Fully Assessed Reason for Visit: Schedule Surgery [1330] Cmt: EPS- EP Study +/- SVT RFA, +/- Loop Prescriptions as of 07/05/2022 - metoprolol succinate ER (TOPROL XL) 25 mg 24 hr tablet Take 25 mg by mouth once daily. Problem List As Of Date 07/05/2022 Noted Resolved Impingement syndrome of right shoulder [M75.41] 09/14/2019 Obesity, Class III, BMI >= 40 [E66.01] 07/03/2022 Encounter Status:Closed by SAVITA KAPADIA on 07/05/22 Normal [facility] CNPN Telephone (GABRIELLA) PAULO HASSAN ([id number]) 1985 M Date Time Provider Department 07/05/22 CEDRIC STUBBS During your visit today, we recorded the following information about you: Crissy Mays 07/05/2022 8:39 AM Signed Outside . [facility]. Crissy Mays 07/05/2022 8:47 AM Signed Outside EP. [place] [facility] [id number]. Crissy Mays Allergies As of Date: 07/05/2022 Noted Allergy Reaction LIDOCAINE 08/12/2018 5 - Intolerance Comments: Does not work well for him NOVACAINE (PROCAINE) 08/12/2018 5 - Intolerance Comments: Do not work well for him Date Reviewed: 07/03/2022 Reviewed by: Ayaka Ivy RN - Fully Assessed Reason for Visit: Received Outside Medical Records [3576] Prescriptions as of 07/05/2022 - metoprolol succinate ER (TOPROL XL) 25 mg 24 hr tablet Take 25 mg by mouth once daily. Problem List As Of Date 07/05/2022 Noted Resolved Impingement syndrome of right shoulder [M75.41] 09/14/2019 Obesity, Class III, BMI >= 40 [E66.01] 07/03/2022 Encounter Status:Closed by CRISSY MAYS on 07/05/22 [facility] 07-03-2022 CNOV Office Visit (GABRIELLA ) PAULO HASSAN ([id number]) 1985 M Date Time Provider Department 07/03/22 7:45 AM C[facility] STUBBS During your visit today, we recorded the following information about you: Weight Height 142.9 kg 1.88 m Cedric Stubbs MD 08/05/2022 9:12 AM [facility] Ricardo Peña Department of Cardiovascular Medicine SECTION OF CARDIAC PACING and ELECTROPHYSIOLOGY OUTPATIENT VISIT DATE July 03, 2022 OUTPATIENT VISIT TYPE NEW PRIMARY CARE PHYSICIAN: JEMMA CHRISTENSEN REFERRING PHYSICIAN: Dr. Patino CHIEF COMPLAINT: Syncope HISTORY OF PRESENT ILLNESS: Mr. Hassan is a 37 year old male who presents today syncope and treatment options. He reports syncopal episodes about once a year, all occurring after pain or flying since 2009. He reports syncopal episode January. 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 He states he felt pain in left shoulder and wave of nausea came over him. He went the the ED the next day. He wore heart monitor 01/2022 and he was placed on metoprolol 25mg daily. He reports near syncopal episode in February. He reports episodes of palpitations, about once a week, lasting seconds. He reports occasional lightheadedness, palpitations, shortness of breath. He denies chest pain, orthopnea, PND, or edema. Tolerating medications without any adverse effects. PAST MEDICAL HISTORY Diagnosis Date Basal cell carcinoma (BCC) 03/2017 Hypothyroidism PTSD (post-traumatic stress disorder) Ringing in ears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 HISTORY Problem Relation Age of Onset Cancer Mother pancreatic, diagnosed at age 32 Diabetes Mother other (colon polyps) Mother other (GI defect) Sister Cancer Maternal Grandmother Cancer Maternal Grandfather Cancer Paternal Grandmother pancreatic Alzheimer's Disease Paternal Grandfather ALLERGIES: ALLERGIES Allergen Reactions Lidocaine Intolerance Does not work well for him Novacaine [Procaine] Intolerance Do not work well for him MEDICATIONS: multivit-min/FA/lycopen/lutein (CENTRUM SILVER MEN ORAL) Take 1 tablet by mouth once daily. naproxen sodium (ALEVE) 220 mg tablet Take 440 mg by mouth once daily as needed. methIMAzole (TAPAZOLE) 5 mg tablet Take 2.5 mg by mouth once daily. metoprolol succinate ER (TOPROL XL) 25 mg 24 hr tablet Take 25 mg by mouth once daily. REVIEW OF SYSTEMS: GENERAL: Negative for: Weight loss or gain, Fever or Chills, Weakness and Sleep difficulties. HEENT: Negative for: Headache, Impaired Vision, Hearing Impairment, Ringing in Ears, Nosebleeds, Poor dental care, Bleeding Gums, Dentures NECK: Negative for: Swelling, Pain, Stiffness RESPIRATORY: Negative for: Cough, Blood in Sputum, Shortness of breath, Wheezing, Apnea GASTROINTESTINAL: Negative for: Trouble swallowing, Heartburn, Change in bowel habits, Blood in stool, Dark black stools MUSCULOSKELETAL: Negative for: Muscle or joint pain, Stiffness , Joint swelling NEUROLOGIC/PSYCHIATRIC: Negative for: Weakness, Paralysis, Numbness, Tingling, Tremor, Nervousness, Depressed mood, Memory loss SKIN: Negative for: Rashes, Itching HEMATOLOGICAL/LYMPHATIC: Negative for: Easy bruising , Easy bleeding ENDOCRINE: Negative for: Heat or cold intolerance, Excessive sweating, Frequent urination, Frequent thirst PHYSICAL EXAMINATION: BP 132/76 Pulse 74 Resp 16 Ht 188 cm (6' 2 ) Wt (!) 142.4 kg (314 lb) BMI 40.32 kg/m? General: Well appearing, in no acute distress. Skin: No clubbing, no cyanosis. Eyes: Extra ocular movements intact Neck: short, thick neck. No jugular venous distention, no carotid bruits, carotids have a normal upstroke, no palpable thyromegaly. Lungs: Clear to auscultation bilaterally, no wheezing or rhonchi. Heart: Regular rhythm, PMI not displaced, S1, S2 normal, no S3, no S4, no heaves, no rub and no murmur. Abdomen: Soft, nontender, bowel sounds normal, no palpable organomegaly, no bruits. Extremities: No peripheral edema . Grade 2/4 distal pulses bilaterally. Neuro: Oriented to person, place and time, alert, cooperative, gait coordinated. CARDIOVASCULAR MEDICINE TESTING: Electrocardiogram: Laboratory Testing: pending Last EKG Result Conclusion ECG COMPLETE Collected (more content not included)... [facility] 08-13-2022 History of Presen t illness Narrative Images from the original note were not included. [facility] Department of Cardiovascular Medicine SECTION OF CARDIAC PACING and ELECTROPHYSIOLOGY OUTPATIENT VISIT DATE August 13, 2022 OUTPATIENT VISIT TYPE ESTABLISHED PRIMARY CARE PHYSICIAN: Jemma Christensen [address] [place] [address] REFERRING PHYSICIAN: Zan Bates [address] [facility] [address] CHIEF COMPLAINT: Syncope HISTORY OF PRESENT ILLNESS: Mr. Hassan is a 37 year old male who presents today for pre op exam prior to EPS, possible SVT ablation and possible loop implant scheduled on 08/20/2022. He was last seen by Dr. Stubbs on 08/20/2022. He has PMHx of syncope, hyperthyroidism on Methimazole, closed head injury trauma sustained during service in armed [email or web address], right ear hearing loss, chronic musculoskeletal pain on daily Aleve. He continues to have intermittent near syncope 1-4x per month. He denies any warning. He reports feeling lightheaded, sometimes with a pain in his shoulder and then needs to sit down. The episodes last several seconds. 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 He thinks the metoprolol has lessoned the episodes but has not stopped them. He denies chest pain, shortness of breath, orthopnea, cough, edema, palpitations, PND, lightheadedness or syncope. PAST CARDIAC HISTORY: syncope PAST MEDICAL HISTORY Diagnosis Date Basal cell carcinoma (BCC) 03/2017 Hypothyroidism PTSD (post-traumatic stress disorder) Ringing in ears TBI (traumatic brain injury) PAST SURGICAL HISTORY Procedure Laterality Date CYST/MOLE REMOVAL mole removal-years ago PAST SURGICAL HISTORY OF 03/2017 removal basal cell carcinoma from scalp PAST SURGICAL HISTORY OF dental procedures SOCIAL HISTORY Social History Tobacco Use Smoking status: Former Smokeless tobacco: Former Tobacco comments: quit 9 years ago Vaping Use Vaping Use: Never used Substance Use Topics Alcohol use: No Drug use: No FAMILY HISTORY Problem Relation Age of Onset Cancer Mother pancreatic, diagnosed at age 32 Diabetes Mother other (colon polyps) Mother other (GI defect) Sister Cancer Maternal Grandmother Cancer Maternal Grandfather Cancer Paternal Grandmother pancreatic Alzheimer's Disease Paternal Grandfather ALLERGIES: ALLERGIES Allergen Reactions Lidocaine Intolerance Does not work well for him Novacaine [Procaine] Intolerance Do not work well for him MEDICATIONS: multivit-min/FA/lycopen/lutein (CENTRUM SILVER MEN ORAL) Take 1 tablet by mouth once daily. naproxen sodium (ALEVE) 220 mg tablet Take 440 mg by mouth once daily as needed. methIMAzole (TAPAZOLE) 5 mg tablet Take 2.5 mg by mouth once daily. metoprolol succinate ER (TOPROL XL) 25 mg 24 hr tablet Take 25 mg by mouth once daily. REVIEW OF SYSTEMS: GENERAL: Negative for: Weight loss or gain, Fever or Chills, Weakness and Sleep difficulties. HEENT: Negative for: Headache, Impaired Vision, Hearing Impairment, Ringing in Ears, Nosebleeds, Poor dental care, Bleeding Gums, Dentures NECK: Negative for: Swelling, Pain, Stiffness RESPIRATORY: Negative for: Cough, Blood in Sputum, Shortness of breath, Wheezing, Apnea GASTROINTESTINAL: Negative for: Trouble swallowing, Heartburn, Change in bowel habits, Blood in stool, Dark black stools MUSCULOSKELETAL: Negative for: Muscle or joint pain, Stiffness , Joint swelling NEUROLOGIC/PSYCHIATRIC: Negative for: Weakness, Paralysis, Numbness, Tingling, Tremor, Nervousness, Depressed mood, Memory loss SKIN: Negative for: Rashes, Itching HEMATOLOGICAL/LYMPHATIC: Negative for: Easy bruising , Easy bleeding ENDOCRINE: Negative for: Heat or cold intolerance, Excessive sweating, Frequent urination, Frequent thirst PHYSICAL EXAMINATION: BP 132/76 Pulse 74 Resp 16 Ht 188 cm (6' 2 ) Wt (!) 142.4 kg (314 lb) BMI 40.32 kg/m General: Well appearing, in no acute distress. Skin: No clubbing, no cyanosis. Eyes: Extra ocular movements intact Neck: short, thick neck. No jugular venous distention, no carotid bruits, carotids have a normal upstroke, no palpable thyromegaly. Lungs: Clear to auscultation bilaterally, no wheezing or rhonchi. Heart: Regular rhythm, PMI not displaced, S1, S2 normal, no S3, no S4, no heaves, no rub and no murmur. Abdomen: Soft, nontender, bowel sounds normal, no palpable organomegaly, no bruits. Extremities: No peripheral edema . Grade 2/4 distal pulses bilaterally. Neuro: Oriented to person, place and time, alert, cooperative, gait coordinated. CARDIOVASCULAR MEDICINE TESTING: Electrocardiogram: Laboratory Testing: pending Last EKG Result Conclusion ECG COMPLETE Collected: 08/13/2022 2:12 PM (Preliminary result) Impression: NORMAL SINUS RHYTHM WITH SINUS ARRHYTHMIA NORMAL ECG I have personally reviewed the Electrocardiogram. IMPRESSION: Mr. Hassan is a 37 year old male who presents today for pre op exam prior to EPS, possible SVT ablation and possible loop implant scheduled on 08/20/2022. He was last seen by Dr. Stubbs on 08/20/2022. He has PMHx of syncope, hyperthyroidism on Methimazole, closed head injury trauma sustained during service in [employer], right ear hearing loss, chronic musculoskeletal pain on daily Aleve. He continues to have intermittent near syncope 1-4x per month. He denies any warning. He reports feeling lightheaded, sometimes with a pain in his shoulder and then needs to sit down. The episodes last several seconds. 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 He thinks the metoprolol has lessoned the epsidoses but has not stopped them. He denies chest pain, shortness of breath, orthopnea, cough, edema, palpitations, PND, lightheadedness or syncope. PLAN AND RECOMMENDATIONS: R55 Syncope, unspecified syncope type (primary encounter diagnosis) Comment: near syncope recently. Plan for EPS possible SVT ablation or possible Loop implant. E66.01 Obesity, Class III, BMI >= 40 Comment: weight loss and regular aerobic exercise E05.90 Hyperthyroid Comment: TSH labs added to pre op labs. On Methimazole H91.91 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 Comment: s/p TBI Z01.818 Pre-op exam Comment: Reviewed pre op, intra op and post op plan for procedure. Reviewed risks associated with procedure. Answered questions and concerns. Aware to call EP schedulers to verify arrival time for the day of the procedure. . I personally interviewed, confirmed and edited the above information as obtained by others. CONTACT INFORMATION: Spring Beck APRN.CNP documented in this encounter [facility] 08-13-2022 Instructions Spring Beck APRN.CNP - 08/13/2022 3:10 PM EST Call the EP schedulers one business day prior to your procedure at then ask for pager [phone] You may take all your regular medications the day prior to the procedure Nothing to eat or drink from midnight the night prior to the procedure Okay to take methimazole in am but no other medications the morning of the procedure unless directed differently by the Ep schedulers Arrive to J1-1 the day of the procedure then proceed to J2-1 for your procedure. You may bring your home medications with you to use at the hospital but they must be in the original containers (no pill boxes) Procedure was discussed And questions answered. We reviewed expectation after the procedure: If you experience groin pain, oozing, or growing hematoma, you should notify the office. For one week after the procedure 10 lbs lifting, pushing, pulling restriction. No regular exercise for one week, then start slow back into exercise program. Any questions or concerns call the office. documented in this encounter [facility] 07-05-2022 Miscellaneous Notes Patient offered and accepted date of 08/20/[address] Bates and Dr[address] Stubbs. Patient needs OPD, EKG, Labs (CBC, BMP, T&S, Confirm, Covid) with in 3 days of procedure. Savita Kapadia RN ----- Message from Cedric Stubbs MD sent at 07/03/2022 10:54 AM EST ----- Regarding: ?SVT Please schedule him for EPS to assess for SVT and possible ablation if one is found. If no inducible SVT, then do an ILR. He should hold his metoprolol for 2 days before. On no other meds. Please schedule it on a day I can be in the lab as well. Mary Ivan. PT documented in this encounter [facility] 07-05-2022 Miscellaneous Notes Outside EP. [place] [facility] [id number] Crissy Mays Outside . [facility]. Crissy Mays documented in this encounter [facility] 07-03-2022 Note HNO ID: [id number] Author: Cedric Stubbs MD Service: ? Author Type: Physician Type: Progress Notes Filed: 08/05/2022 9:12 AM Note Text: [facility] Department of Cardiovascular Medicine SECTION OF CARDIAC PACING and ELECTROPHYSIOLOGY OUTPATIENT VISIT DATE July 03, 2022 OUTPATIENT VISIT TYPE NEW PRIMARY CARE PHYSICIAN: JEMMA CHRISTENSEN REFERRING PHYSICIAN: Dr. Patino CHIEF COMPLAINT: Syncope HISTORY OF PRESENT ILLNESS: Mr. Hassan is a 37 year old male who presents today syncope and treatment options. He reports syncopal episodes about once a year, all occurring after pain or flying since 2009. He reports syncopal episode January. 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 He states he felt pain in left shoulder and wave of nausea came over him. He went the the ED the next day. He wore heart monitor 01/2022 and he was placed on metoprolol 25mg daily. He reports near syncopal episode in February. He reports episodes of palpitations, about once a week, lasting seconds. He reports occasional lightheadedness, palpitations, shortness of breath. He denies chest pain, orthopnea, PND, or edema. Tolerating medications without any adverse effects. PAST MEDICAL HISTORY Diagnosis Date Basal cell carcinoma (BCC) 03/2017 Hypothyroidism PTSD (post-traumatic stress disorder) Ringing in ears TBI (traumatic brain injury) PAST SURGICAL HISTORY Procedure Laterality Date CYST/MOLE REMOVAL mole removal-years ago PAST SURGICAL HISTORY OF 03/2017 removal basal cell carcinoma from scalp PAST SURGICAL HISTORY OF dental procedures SOCIAL HISTORY Social History Tobacco Use Smoking status: Former Smokeless tobacco: Former Tobacco comments: quit 9 years ago Vaping Use Vaping Use: Never used Substance Use Topics Alcohol use: No Drug use: No FAMILY HISTORY Problem Relation Age of Onset Cancer Mother pancreatic, diagnosed at age 32 Diabetes Mother other (colon polyps) Mother other (GI defect) Sister Cancer Maternal Grandmother Cancer Maternal Grandfather Cancer Paternal Grandmother pancreatic Alzheimer's Disease Paternal Grandfather ALLERGIES: ALLERGIES Allergen Reactions Lidocaine Intolerance Does not work well for him Novacaine [Procaine] Intolerance Do not work well for him MEDICATIONS: metoprolol succinate ER (TOPROL XL) 25 mg 24 hr tablet Take 25 mg by mouth once daily. REVIEW OF SYSTEMS: General, constitutional: Weight loss or gain- yes Fever or chills-No, Weakness-No, Trouble sleeping-No. Head, Eyes, Ears, Mouth: Headache, head injury-No, Glasses or contact lenses-No, Pain-yes, Impaired vision-No, Decreased hearing-No, Ringing in ears-yes, Nose bleeds-yes, Dental difficulties-No, Bleeding gums-No, Dentures-No. Neck: Swelling-No, Pain-No, Stiffness-No. Respiratory: Cough-No, Spitting up blood-No, Shortness of breath-yes, Wheezing or asthma-No. Musculoskeletal: Muscle or joint pain or stiffness-yes, Joint swelling-No. Gastrointestinal: Difficulty swallowing-No, Heartburn-yes, Change in bowel habits-No, Blood in stool, Dark black stools-No. Neurological/Psychiatric: Weakness, paralysis-No, Numbness-yes, Tingling-No, Tremor-No, Nervousness or anxiety-yes, Depressed mood-yes, Memory loss-No. Skin: Rash-No, Itching-No. Hematological: Easy bruising-No, Easy bleeding-No. Endocrine: Heat or cold intolerance-yes, Excessive sweating-yes, Frequent urination-No, Frequent thirst-No. Ayaka Ivy RN Additional Comments, Assessment, Recommendations and Plan: The above note reflects my interview with the patient and my incorporation of the nurse obtained information as well as my own additions and modifications comprising the patient history. Additional findings and changes as listed below. Additional History: Here to consult regarding his episodes of syncope. He has a long history of syncopal events. In the past, these have been associated with painful procedures. But more recently, these have come on without necessarily being associated with a painful experience. He relates that he has a brief warning symptom of nausea followed by syncope. His warning symptoms are a matter of a few seconds only. Sometime he feels some pain or nausea during the warning symptoms. One episode occurred at a restaurant. 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 When he came up he felt a wave of nausea and some should cramp . He then had syncope with fall over to the floor. He hit his head (unaware of it). He was evaluated in the ER and had head CT done. Ht 188 cm (6' 2 ) Wt (!) 142.9 kg (315 lb) BMI 40.44 kg/m? General appearance: comfortable, alert Neck: No JVD, no bruit Lungs: clear, good excursion Heart: RR, Nl s1, s2, no mm, gallops or rubs Extremities: No edema, good skin color ECG today shows: SR, 72 bpm (more content not included)... [facility] 07-03-2022 History of Presen t illness Narrative Images from the original note were not included. [facility] Department of Cardiovascular Medicine SECTION OF CARDIAC PACING and ELECTROPHYSIOLOGY OUTPATIENT VISIT DATE July 03, 2022 OUTPATIENT VISIT TYPE NEW PRIMARY CARE PHYSICIAN: JEMMA CHRISTENSEN REFERRING PHYSICIAN: Dr. Patino CHIEF COMPLAINT: Syncope HISTORY OF PRESENT ILLNESS: Mr. Hassan is a 37 year old male who presents today syncope and treatment options. He reports syncopal episodes about once a year, all occurring after pain or flying since 2009. He reports syncopal episode January. 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 He states he felt pain in left shoulder and wave of nausea came over him. He went the the ED the next day. He wore heart monitor 01/2022 and he was placed on metoprolol 25mg daily. He reports near syncopal episode in February. He reports episodes of palpitations, about once a week, lasting seconds. He reports occasional lightheadedness, palpitations, shortness of breath. He denies chest pain, orthopnea, PND, or edema. Tolerating medications without any adverse effects. PAST MEDICAL HISTORY Diagnosis Date Basal cell carcinoma (BCC) 03/2017 Hypothyroidism PTSD (post-traumatic stress disorder) Ringing in ears TBI (traumatic brain injury) PAST SURGICAL HISTORY Procedure Laterality Date CYST/MOLE REMOVAL mole removal-years ago PAST SURGICAL HISTORY OF 03/2017 removal basal cell carcinoma from scalp PAST SURGICAL HISTORY OF dental procedures SOCIAL HISTORY Social History Tobacco Use Smoking status: Former Smokeless tobacco: Former Tobacco comments: quit 9 years ago Vaping Use Vaping Use: Never used Substance Use Topics Alcohol use: No Drug use: No FAMILY HISTORY Problem Relation Age of Onset Cancer Mother pancreatic, diagnosed at age 32 Diabetes Mother other (colon polyps) Mother other (GI defect) Sister Cancer Maternal Grandmother Cancer Maternal Grandfather Cancer Paternal Grandmother pancreatic Alzheimer's Disease Paternal Grandfather ALLERGIES: ALLERGIES Allergen Reactions Lidocaine Intolerance Does not work well for him Novacaine [Procaine] Intolerance Do not work well for him MEDICATIONS: metoprolol succinate ER (TOPROL XL) 25 mg 24 hr tablet Take 25 mg by mouth once daily. REVIEW OF SYSTEMS: General, constitutional: Weight loss or gain- yes Fever or chills-No, Weakness-No, Trouble sleeping-No. Head, Eyes, Ears, Mouth: Headache, head injury-No, Glasses or contact lenses-No, Pain-yes, Impaired vision-No, Decreased hearing-No, Ringing in ears-yes, Nose bleeds-yes, Dental difficulties-No, Bleeding gums-No, Dentures-No. Neck: Swelling-No, Pain-No, Stiffness-No. Respiratory: Cough-No, Spitting up blood-No, Shortness of breath-yes, Wheezing or asthma-No. Musculoskeletal: Muscle or joint pain or stiffness-yes, Joint swelling-No. Gastrointestinal: Difficulty swallowing-No, Heartburn-yes, Change in bowel habits-No, Blood in stool, Dark black stools-No. Neurological/Psychiatric: Weakness, paralysis-No, Numbness-yes, Tingling-No, Tremor-No, Nervousness or anxiety-yes, Depressed mood-yes, Memory loss-No. Skin: Rash-No, Itching-No. Hematological: Easy bruising-No, Easy bleeding-No. Endocrine: Heat or cold intolerance-yes, Excessive sweating-yes, Frequent urination-No, Frequent thirst-No. Ayaka Ivy RN Additional Comments, Assessment, Recommendations and Plan: The above note reflects my interview with the patient and my incorporation of the nurse obtained information as well as my own additions and modifications comprising the patient history. Additional findings and changes as listed below. Additional History: Here to consult regarding his episodes of syncope. He has a long history of syncopal events. In the past, these have been associated with painful procedures. But more recently, these have come on without necessarily being associated with a painful experience. He relates that he has a brief warning symptom of nausea followed by syncope. His warning symptoms are a matter of a few seconds only. Sometime he feels some pain or nausea during the warning symptoms. One episode occurred at a restaurant. 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 When he came up he felt a wave of nausea and some should cramp . He then had syncope with fall over to the floor. He hit his head (unaware of it). He was evaluated in the ER and had head CT done. Ht 188 cm (6' 2 ) Wt (!) 142.9 kg (315 lb) BMI 40.44 kg/m General appearance: comfortable, alert Neck: No JVD, no bruit Lungs: clear, good excursion Heart: RR, Nl s1, s2, no mm, gallops or rubs Extremities: No edema, good skin color ECG today shows: SR, 72 bpm WNL Other tests:Echo, Tilt, stress test are all quite normal. BP w/Orthostatic Vitals Date and Time Orthostatic BP Orthostatic Pulse BP Pulse BP Position BP Site BP Cuff Size 07/03/22 0827 120/85 90 -- -- -- -- -- 07/03/22 0825 148/86 83 -- -- -- -- -- 07/03/22 0824 139/83 77 -- -- -- -- -- 07/03/22 0821 -- 72 -- -- -- -- -- Outside Echo: Outside Stress: 03/07/22 TILT: 02/28/22 His TSH values are in the 0.22 range. So this is borderline low, But not likely cause of his clinical events. He is to undergo a thyroid scan to assess for any hot nodules. Event monitor done February to March for a month. He has sinus tachycardia at times. Had a couple of episodes ith rates in 160-180 range. Patient reports one episode of ?syncope or near syncope while wearing this. But this is not specifically identified on the monitor. Some episodes of tachycardia are possibly an SVT. IMPRESSION, PLAN/RECOMMENDATIONS: 37 year old male with history of probably vagally mediated syncope associated with pain. However, more recently the episodes are more suspicious for an SVT. He gets very little warning before syncope. Typically with VVS, a person would get a little more warning than a few seconds. The shelter monitor did show some vents suspicious for an SVT. He indicates that he did not do heavy physical activity while wearing this monitor. These episodes are interfering with his work. I would recommend that he have an EPS done. If that does not show any inducible SVTs, then would consider an implantable loop recorder. If EPS shows an SVT, then ablate the SVT. Discussed with him. He wishes to proceed with this plan. I will plan on seeing the pt for a follow up when he comes for the EPS/possible ablation/possible ILR implant. Cedric Stubbs M.D. I reviewed any prior outside records with the patient, obtained relevant HPI and PMH from the pt, examined the patient and created the above report. I spent over 70% of my time counseling the patient regarding my assessment and recommendations. Time spent for the above: 65 m Cedric Stubbs MD Note to: Dr. Patino, Dr. Christensen. documented in this encounter [facility] 06-06-2022 Miscellaneous Notes Outside EP-5-pages- Office visit from 05/30/22. Crissy Mays documented in this encounter [facility] 04-12-2022 Miscellaneous Notes April 12, 2022 Patient Contact Number: [phone] Patient last seen within the last year: No New Patient Reason For Call: Other Issue: Patient is a new patient experiencing Tachycardia & Syncope. Patient would like an appointment. I didn't see any new patient slots available. Physician:Cedric Stubbs MD Patient was informed that non-urgent calls may be returned within the next two business days. Yes Crissy Mays documented in this encounter [facility] 04-01-2022 Miscellaneous Notes Outside EP documented in this encounter [facility] 2022 Note HNO ID: [id number] Author: RT Parrish (Rt)(R) Service: ? Author Type: Supervisor Tower Type: Progress Notes Filed: 2022 9:18 AM Note Text: Radiology Service Progress Note DATE OF SERVICE: 2022 TIME: 9:18 AM PATIENT IDENTITY VERIFICATION COMPLETED USING TWO (2) STANDARD IDENTIFIERS: Name and Date of confirmed by patient verbally. FALL SCREENING: Has the patient had 2 falls in the last year or 1 fall with injury or currently using an Ambulatory Assistive Device (Walker, Cane, Wheelchair, Crutches, etc.)? No PATIENT GENDER DATA: Male PATIENT RELEVANT IMPLANT DATA REVIEWED: Yes ALLERGIES: Reviewed and unchanged CONTRAST ALLERGY: NO. EXAM: MRI - CONTRAST TYPE: GROUP II PERIPHERAL IV DATA: Ambulatory: A peripheral IV was started in the Right antecubital site with a Angio cath/Butterfly: 20 gauge. RADIOLOGY DEPARTMENT: MR; Exam(s) Completed: Head: Routine Brain SIGNATURE: RT Michell(R), (R) PATIENT NAME: Paulo Boo Mastellar DATE: 2022 TIME: 9:[address] [facility] 2022 History of Presen t illness Narrative Radiology Service Progress Note DATE OF SERVICE: 2022 TIME: 9:18 AM PATIENT IDENTITY VERIFICATION COMPLETED USING TWO (2) STANDARD IDENTIFIERS: Name and Date of confirmed by patient verbally. FALL SCREENING: Has the patient had 2 falls in the last year or 1 fall with injury or currently using an Ambulatory Assistive Device (Walker, Cane, Wheelchair, Crutches, etc.)? No PATIENT GENDER DATA: Male PATIENT RELEVANT IMPLANT DATA REVIEWED: Yes ALLERGIES: Reviewed and unchanged CONTRAST ALLERGY: NO. EXAM: MRI - CONTRAST TYPE: GROUP II PERIPHERAL IV DATA: Ambulatory: A peripheral IV was started in the Right antecubital site with a Angio cath/Butterfly: 20 gauge. RADIOLOGY DEPARTMENT: MR; Exam(s) Completed: Head: Routine Brain SIGNATURE: RT Michell(R)RT(R) PATIENT NAME: Paulo Hassan DATE: 2022 TIME: 9:18 AM documented in this encounter [facility] Evaluation note Diagnosis Obesity, Class III, BMI >= 40- Primary Morbid obesity Syncope, unspecified syncope type 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 Diagnosis Syncope, unspecified syncope type- Primary Encounter for screening for COVID-19 SVT (supraventricular tachycardia) (HCC) Other specified cardiac dysrhythmias [facility] (narrative)* Outpatient Procedure (Routine) - Authorized Specialty Diagnoses / Procedures Referred By Contac t Referred To Contact [facility] Diagnoses Syncope, unspecified syncope type Procedures ECG COMPLETE ECG ROUTINE ECG W/LEAST 12 LDS W/I&R Cedric Stubbs MD [address] [place] [address] [facility] [address] [place] [address] Referral ID Status Reason Start Date Expiration Date Visits Requested Visits Authorized [id number] Authorized Auto-Generat ed Referral 08/14/2022 08/14/[address] [facility] Summary Purpose Family History No Family History [...] ized section and content) DATE CREATED AUTHOR 05/04/2019 [facility] DATE CREATED AUTHOR AUTHOR'S ORGANIZ ATION 09/07/2019 [facility] DATE CREATED AUTHOR AUTHOR'S ORGANIZ ATION 08/19/2022 [facility] DATE CREATED AUTHOR AUTHOR'S ORGANIZ ATION 08/21/2022 [facility] Source Comments (unrecognize d section and content) In the event this informatio n is protected by the Federal Confidentiality of Alcohol and Drug Abuse Patient Records regulations: The Federal rules restrict any use of the information to criminally investigate or prosecute any alcohol or drug abuse patient.[facility] the event this information is protected by the Federal Confidentiality of Alcohol and Drug Abuse Patient Records regulations: The Federal rules restrict any use of the information to criminally investigate or prosecute any alcohol or drug abuse patient.[facility] the event this information is protected by the Federal Confidentiality of Alcohol and Drug Abuse Patient Records regulations: The Federal rules restrict any use of the information to criminally investigate or prosecute any alcohol or drug abuse patient.[facility] the event this information is protected by the Federal Confidentiality of Alcohol and Drug Abuse Patient Records regulations: The Federal rules restrict any use of the information to criminally investigate or prosecute any alcohol or drug abuse patient.[facility] the event this information is protected by the Federal Confidentiality of Alcohol and Drug Abuse Patient Records regulations: The Federal rules restrict any use of the information to criminally investigate or prosecute any alcohol or drug abuse patient.[facility] the event this information is protected by the Federal Confidentiality of Alcohol and Drug Abuse Patient Records regulations: The Federal rules restrict any use of the information to criminally investigate or prosecute any alcohol or drug abuse patient.[facility] the event this information is protected by the Federal Confidentiality of Alcohol and Drug Abuse Patient Records regulations: The Federal rules restrict any use of the information to criminally investigate or prosecute any alcohol or drug abuse patient.[facility] the event this information is protected by the Federal Confidentiality of Alcohol and Drug Abuse Patient Records regulations: The Federal rules restrict any use of the information to criminally investigate or prosecute any alcohol or drug abuse patient.[facility] the event this information is protected by the Federal Confidentiality of Alcohol and Drug Abuse Patient Records regulations: The Federal rules restrict any use of the information to criminally investigate or prosecute any alcohol or drug abuse patient.[facility] the event this information is protected by the Federal Confidentiality of Alcohol and Drug Abuse Patient Records regulations: The Federal rules restrict any use of the information to criminally investigate or prosecute any alcohol or drug abuse patient.[facility] the event this information is protected by the Federal Confidentiality of Alcohol and Drug Abuse Patient Records regulations: The Federal rules restrict any use of the information to criminally investigate or prosecute any alcohol or drug abuse patient.[facility] the event this information is protected by the Federal Confidentiality of Alcohol and Drug Abuse Patient Records regulations: The Federal rules restrict any use of the information to criminally investigate or prosecute any alcohol or drug abuse patient.[facility] Reason for Visit (unrecogniz ed section and content) Reason Comments Radiology MRI Specialty Diagnoses / Procedures Referred By Contac t Referred To Contact Radiology / RADIO MRI Diagnoses Syncope and collapse Personal history of traumatic brain injury MRI BRAIN W/WO CONTRAST R55, Z87.820, ORDER IN SCANNED DOCUMENTS Procedures MRI BRAIN BRAIN STEM W/O W/CONTRAST MATERIAL MRI WWO NEU1 B 350 Theo Lancaster MD [address] [place] [address] Radio Mri [facility] [address] [place] [address] Referral ID Status Reason Start Date Expiration Date Visits Re quested Visits Authorized [id number] Closed 02/16/2022 04/02/2022 1 1 Reason Comments Received Outside Medical Records Records -31-pages Reason Comments Appointment New Patient Reason Comments Received Outside Medical Records Reason Comments Schedule Surgery EPS- EP Study +/- SV T RFA, +/- Loop Reason Comments Syncope Reason Comments Patient Education EPS Reason Comments Appointment Cancellation 01/22/23 Care Teams (unrecognized sec tion and content) Reproductive Healthcare Assistant Relationship Specialty Start Date End Date Jemma Christensen [address] [facility] [address] [place] [address] PCP - General 02/22/22 Reproductive Healthcare Assistant Relationship Specialty Start Date End Date Jemma Christensen [address] [facility] [place] [address] PCP - General 02/22/22 Reproductive Healthcare Assistant Relationship Specialty Start Date End Date Jemma Christensen(Historical) PCP - General 02/22/22 Reproductive Healthcare Assistant Relationship Specialty Start Date End Date Jemma Christensen(Historical) PCP - General 02/22/22 Reproductive Healthcare Assistant Relationship Specialty Start Date End Date Jemma Christensen DO [address] [facility] [address] [place] [address] PCP - General Family Medicine 07/03/22 Norberto Patino Benedict [facility] [address] [place] [address] Referring Cardiology 07/03/22 Cedric Stubbs MD [address] [place] [address] Primary Staff Physician Cardiology 07/03/22 Reproductive Healthcare Assistant Relationship Specialty Start Date End Date Jemma Christensen DO [address] [facility] [address] [place] [address] PCP - General Family Medicine 07/03/22 Norberto Patino Benedict [facility] [address] [place] [address] Referring Cardiology 07/03/22 Cedric Stubbs MD [address] [place] [address] Primary Staff Physician Cardiology 07/03/22 Reproductive Healthcare Assistant Relationship Specialty Start Date End Date Jemma Christensen, DO [address] [place] [address] PCP - General Family Medicine 07/03/22 Norberto Patino [address] [place] [address] Referring Cardiology 07/03/22 Cedric Stubbs MD [address] [place] [address] Primary Staff Physician Cardiology 07/03/22 Reproductive Healthcare Assistant Relationship Specialty Start Date End Date Jemma Christensen, DO [address] [facility] [address] [place] [address] PCP - General Family Medicine 07/03/22 Norberto Patino [address] [place] [address] Referring Cardiology 07/03/22 Cedric Stubbs MD [address] [place] [address] Primary Staff Physician Cardiology 07/03/22 Reproductive Healthcare Assistant Relationship Specialty Start Date End Date Jemma Christensen, DO [address] [place] [address] PCP - General Family Medicine 07/03/22 Norberto Patino [address] [place] [address] Referring Cardiology 07/03/22 Cedric Stubbs MD [address] [place] [address] Primary Staff Physician Cardiology 07/03/22 Reproductive Healthcare Assistant Relationship Specialty Start Date End Date Jemma Christensen DO [address] [facility] [address] [place] [address] PCP - General Family Medicine 07/03/22 Norberto Patino [address] [facility] [address] [place] [address] Referring Cardiology 07/03/22 Cedric Stubbs MD [address] [place] [address] Primary Staff Physician Cardiology 07/03/22 Reproductive Healthcare Assistant Relationship Specialty Start Date End Date Jemma Christensen DO [address] [facility] [address] [place] [address] PCP - General Family Medicine 07/03/22 Norberto Patino [address] [facility] [address] [place] [address] Referring Cardiology 07/03/22 Cedric Stubbs MD [address] [place] [address] Primary Staff Physician Cardiology 07/03/22 FOR RECORDS [...] BE BASED ON THE PRIMARY CLINICAL RECORDS. [facility] [employer] [facility]. provides no warranty or guarantee of the accuracy or completeness of information in this document.
[2024-06-01 13:08] LABS: Vitamin D 1,25-Dihydroxy 42.6 pg/mL (24.8-81.5)
== END | disposition home or self-care (01) ==
LOC: MFPLAB 12:00
PROVIDERS: PCP Family Medicine; Referring Provider Family Medicine; Visit Provider Family Medicine
DX: S92.919A Unspecified fracture of unspecified toe(s), initial encounter for closed fracture (principal)
CPT/HCPCS: 36415; 82652

== ENCOUNTER → 2024-08-16 | Outpatient (CLI) | payer OTHER, SELFPAY ==
--- NOTE | 2024-08-16 12:59 | RAD_ITS ---
INDICATION: BACK PAIN EXAMINATION/TECHNIQUE: X-RAY - XR Spine Lumbar 2 or 3 Views COMPARISON: None. FINDINGS: VERTEBRAE: Preserved vertebral body height. No fracture. No spondylolisthesis. Preservation of the normal lumbar lordosis. Mild multilevel facet arthropathy. DISCS: Mild multilevel degenerative disc disease and spondylosis. INCLUDED ABDOMEN: Included bowel gas pattern is non-obstructive. RAD/Lumbar Spine 2 or 3 Views IMPRESSION: No evidence of lumbar spinal fracture or spondylolisthesis. Mild multilevel degenerative disc disease and spondylosis. Electronically Signed: Akash Oliveira MD at 8:47 EST ,
--- NOTE | 2024-08-16 13:09 | RAD_ITS ---
EXAM: XR THORACIC SPINE, 2 VIEWS CLINICAL INDICATION: Back pain TECHNIQUE: Frontal and lateral views of the thoracic spine. COMPARISON: 08/16/24 FINDINGS: VERTEBRAE: Unremarkable. Preserved vertebral body height. No fracture. No spondylolisthesis. Preservation of the normal thoracic kyphosis. No significant facet arthropathy. DISC SPACES: Unremarkable. Disc spaces are maintained. RAD/Thoracic Spine 2 Views IMPRESSION: No evidence of thoracic spinal fracture or spondylolisthesis. Electronically Signed: Darrick Simon MD at 15:28 EST ,
== END | disposition home or self-care (01) ==
PROVIDERS: PCP Family Medicine; Referring Provider Family Medicine; Visit Provider Family Medicine
DX: M54.9 Dorsalgia, unspecified (principal)
CPT/HCPCS: 72070; 72100

== ENCOUNTER → 2024-09-20 | Outpatient (CLI) | payer OTHER, SELFPAY ==
--- NOTE | 2024-09-20 08:31 | MRI_ITS ---
PROCEDURE: MRI lumbar spine without IV contrast REASON FOR EXAM: Pain TECHNIQUE: Multisequence multiplanar MR images of the lumbar spine were obtained without the administration of intravenous contrast. COMPARISON: None FINDINGS: Vertebral body heights are within normal limits. Negative for acute fracture or marrow replacement. No focal bone marrow edema. Trace retrolisthesis of L5-S1. Alignment is otherwise intact. Conus medullaris is within normal limits and terminates at L1. Diffuse congenital narrowing of the spinal canal. No paraspinal mass. L1-2: No focal disc abnormality, spinal stenosis or foraminal narrowing. L2-3: No focal disc abnormality, spinal stenosis or foraminal narrowing. L3-4: Minimal posterior disc bulge. Mild bilateral facet arthrosis. Mild spinal stenosis. No significant foraminal narrowing. L4-5: Mild posterior disc bulge. Mild/moderate bilateral facet arthrosis and ligamentum flavum hypertrophy. Mild spinal stenosis. Mild/moderate foraminal narrowing. L5-S1: Posterior disc bulge with superimposed right central disc protrusion. Mild bilateral facet arthrosis. No significant spinal stenosis, however there is mild narrowing of both lateral recesses with disc material approaching both traversing S1 nerve roots. Moderate bilateral foraminal narrowing. MRI/Spine Lumbar (Routine) IMPRESSION: 1. Congenital and acquired mild spinal stenosis at L3-4 and L4-5. 2. Right central disc protrusion at L5-S1 with narrowing of both lateral recess es and disc material approaching both S1 traversing nerve roots. 3. Acquired foraminal narrowing from L4 through S1 as above. Reading Location: [facility]
== END | disposition home or self-care (01) ==
PROVIDERS: PCP Family Medicine; Referring Provider Family Medicine; Visit Provider Family Medicine
DX: M54.9 Dorsalgia, unspecified (principal)
CPT/HCPCS: 72148

== ENCOUNTER → 2024-10-22 | Outpatient (CLI) | payer OTHER, SELFPAY ==
[2024-10-22 16:29] LABS: Thyroid Stim Hormone (TSH) 0.327 uIU/mL (0.300-4.200)
== END | disposition home or self-care (01) ==
LOC: MFPLAB 13:51
PROVIDERS: PCP Family Medicine; Referring Provider Family Medicine; Visit Provider Family Medicine
DX: E05.90 Thyrotoxicosis, unspecified without thyrotoxic crisis or storm (principal)
CPT/HCPCS: 36415; 84443

== ENCOUNTER → 2025-04-08 | Outpatient (CLI) | payer OTHER, SELFPAY | END | disposition home or self-care (01) | LOC: MFPLAB 12:24 | PROVIDERS: PCP Family Medicine; Visit Provider Family Medicine | DX: E04.1 Nontoxic single thyroid nodule (principal) | CPT/HCPCS: 36415; 84439; 84443 ==

== ENCOUNTER → 2025-04-20 | Outpatient (CLI) | payer OTHER, SELFPAY ==
--- NOTE | 2025-04-20 17:15 | MRI_ITS ---
PROCEDURE: SPINE THORACIC (ROUTINE) 04/20/2025 REASON FOR EXAM: THORACIC RADICULOPATHY TECHNIQUE: Procedure Code: MRISPT Modality: MR Procedure: SPINE THORACIC (ROUTINE) Multiplanar and multisequence images were obtained. COMPARISON: None. FINDINGS: Vertebrae: Unremarkable in height and signal. Disc levels: Small disc bulges at T6-T7 and T7-T8 without significant canal or foramina narrowing. Alignment: Unremarkable. Spinal Cord: Unremarkable. MRI/Spine Thoracic (Routine) IMPRESSION: Unremarkable MRI of the thoracic spine. Reading Location: [facility]
--- OUTSIDE RECORDS SUMMARY | 2025-04-20 21:36 | XMS RPT_ITS | CCD ---
Author Organization [facility] Care Team Providers Care Beader Tender Name Role Phone DO Jemma Christensen Primary Care Provider DO Jemma Christensen Referring Provider [phone] Hugo Krishna Attending Provider Dr. Norberto Patino Attending Provider [phone] Dr. Hugo Krishna Referring Provider [phone] Hugo Krishna Other Provider [phone]([facility])[phone] Norberto Patino Referring Provider [phone] Norberto Patino Other Provider Jemma Christensen Primary Care Provider Jemma Christensen(Historical) Primary Care Provide r Unavailable Dr. Norberto Patino Attending Provider Jemma Christensen(Historical) Primary Care Provide r Norberto Piper Unavailable Ale Stubbs MD Unavailable Jemma Christensen DO Primary Care Provider DO Jemma Christensen Primary Care Provider DO Jemma Christensen Referring Provider [phone] Norberto Patino Attending Provider [phone] [facility] [employer] SUPERVISOR, [employer] SUPERVISOR-Rissa Jackson Attending Provider Dr. Jonathan Manuel Attending Provider Dr. Hugo Krishna Attending Provider [phone] ALE STUBBS Referring Unavailable JEMMA CHRISTENSEN Primary Care Unavailable ALOKMACIE RENAEMOND Referring Unavailable DO Jemma Christensen M Primary Care Provider DO Fermin Jemma M Referring Provider Roof [employer] SUPERVISOR, [employer] SUPERVISOR-C Etienne Jackson Attending Provider Shyla Mack Attending Provider Unavailable Roof [employer] SUPERVISOR, [employer] SUPERVISOR-C Etienne Jackson Referring Provider Roof [employer] SUPERVISOR, [employer] SUPERVISOR-C Etienne Jackson Other Provider Dr. Cuauhtemoc Saldaña Attending Provider DO Jemma Christensen M Primary Care Provider DO Jemma Christensen M Referring Provider Roof [employer] SUPERVISOR, [employer] SUPERVISOR-C Etienne Jackson Attending Provider Carey GALDAMEZ, Norberto Griffin Unavailable Ale Stubbs MD Unavailable Jemma Christensen DO Primary Care Provider DO Jemma Christensen Primary Care Provider DO Jemma Christensen Referring Provider Dr. Juana Heredia Attending Provider Reggie Barrios MD Primary Care Provider Reggie Barrios MD Attending Provider Reggie Barrios MD Referring Provider Dr. Josue Lindsay MD Attending Provider Dr. Eros Telles MD Attending Provider Lisa Catherine Attending Provider Reggie Barrios MD Primary Care Provider Dr. Josue Lindsay MD Attending Provider Reggie Barrios MD Referring Provider Roof [employer] SUPERVISOR-C, Etienne Jackson Attending Provider Jemma Christensen DO Primary Care Provider Fermin DO, Jemma Mima Primary Care Provider Coursciara DO, Rosa Isela Norberto Unavailable [phone] Sophie GALDAMEZ, Chalon Primary Care Provider Neftali GALDAMEZ, Dr. Salas Attending Provider Rich GALDAMEZ, Dr. Barker Attending Provider ROSA ISELA SANTILLAN Referring Unavailabl e FERMIN, JEMMA MIMA Primary Care Unavailabl e COURSON, ROSA ISELA THOMAS Referring Unavailabl e FERMIN, JEMMA MIMA Primary Care Unavailabl e COURSON, ROSA ISELA THOMAS Attending Unavailabl e COURSON, ROSA ISELA THOMAS Referring Unavailabl e FERMIN, JEMMA MIMA Primary Care Unavailabl e COURSON, ROSA ISELA THOMAS Referring Unavailabl e FERMIN, JEMMA MIMA Primary Care Unavailabl e Sophie, Chalon Attending Unavailable Sophie, Chalon Primary Care Unavailable Sophie, Chalon Referring Unavailable Sophie, Chalon Referring Unavailable Quin, Lisa Attending Unavailable Sophie, Chalon Primary Care Unavailable Mj Villanueva Attending Unavailable Sophie, Chalon Primary Care Unavailable Sophie, Chalon Referring Unavailable Roof [employer] SUPERVISOR, Etienne Jackson Attending Unavailable Sophie, Chalon Primary Care Unavailable Sophie, Chalon Referring Unavailable Sophie, Chalon Primary Care Unavailable Neftali, Little Neck Attending Unavailable Sophie, Chalon Primary Care Unavailable Neftali, [place]ck Attending Unavailable Sophie, Chalon Primary Care Unavailable Neftali, [place] Attending Unavailable Sophie, Chalon Primary Care Unavailable Neftali, [place]ck Attending Unavailable Sophie, Chalon Referring Unavailable QuinAngelayn Attending Unavailable Sophie, Chalon Primary Care Unavailable Sophie, Chalon Primary Care Unavailable Neftali, Josue Attending Unavailable Sophie, Chalon Primary Care Unavailable Sophie, Chalon Referring Unavailable Elfego, Eros Attending Unavailable Sophie, Chalon Primary Care Unavailable Sophie, Chalon Referring Unavailable Sophie, Chalon Attending Unavailable Sophie, Chalon Primary Care Unavailable Sophie, Chalon Attending Unavailable Sophie, Chalon Primary Care Unavailable Mj Villanueva Referring Unavailable VillanuevaTemitopeag Attending Unavailable Sophie, Chalon Primary Care Unavailable Sophie, Chalon Referring Unavailable Sophie, Chalon Attending Unavailable Sophie, Chalon Attending Unavailable Sophie, Chalon Referring Unavailable Sophie, Chalon Primary Care Unavailable Sophie, Chalon Primary Care Unavailable Reggie Barrios Attending Unavailable Allergies Allergy Classification Reported Allergen(s) Allergy Type Date of Onset Reaction(s) Facility (20 sources) Lidocaine; Translations: [LIDOCAINE] Drug Allergy 08-12-2018 Intolerance [facility] Comment on above: PATIENT STATES THAT HE FILTERS IT VERY FAST (20 sources) Procaine; Translations: [PROCAINE] Drug Allergy 08-12-2018 Intolerance [facility] (1 source) Lidocaine Drug Allergy 03-31-2025 [facility] Medications Current Medications Medication Drug Class(es) Dates Sig (Normalized) Sig (Original) acetaminophen 325 mg oral tablet (4 sources) Start: 09-18-2023 take 2 tablets by mouth every four hours as needed for pain Acetaminophen (Tylenol) 325 mg tablet Active 650 mg PO Q4H as needed for pain September 18, 2023 1:00am celecoxib 100 mg oral capsule (4 sources) Nonsteroidal Anti-inflammatory Drug Start: 02-28-2025 celecoxib (CELEBREX) 100 mg capsule 02/28/2025 Active cyclobenzaprine hydrochloride 10 mg oral tablet (11 sources) Muscle Relaxant Start: 11-30-2024 take 1 tablet by mouth twice daily as needed for muscle spasms cyclobenzaprine (FLEXERIL) 10 mg tablet TAKE 1 TABLET BY MOUTH TWICE A DAY NEEDED FOR SPASMS 11/30/2024 Active Start: 07-15-2023 End: 08-20-2023 take 1 tablet by mouth three times daily as needed Cyclobenzaprine 5 mg tablet Discontinued 5 mg PO THREE TIMES A DAY as needed July 15, 2023 1:00am August 20, 2023 2:17pm methocarbamol 500 mg oral tablet (4 sources) Muscle Relaxant Start: 02-28-2025 methocarbamol (ROBAXIN) 500 mg tablet 02/28/2025 Active 24 hr metoprolol succinate 50 mg extended release oral tablet (20 sources) beta-Adrenergic Pranav Start: 08-30-2024 take 1 tablet by mouth once daily Metoprolol Succinate 50 mg tablet extended release 24 hr Active 50 mg PO daily 90 August 30, 2024 1:00am Start: 03-14-2022 End: 08-30-2024 take 1 tablet by mouth once daily Metoprolol Succinate 25 mg tablet extended release 24 hr Discontinued 25 mg PO DAILY 90 3 June 30, 2024 9:05am August 30, 2024 4:57pm Comment on above: Take 25 mg by mouth once daily. midodrine hydrochloride 2.5 mg oral tablet (3 sources) alpha-Adrenergic Agonist Start: 03-02-20 take 1 tablet by mouth three times daily midodrine (PROAMATINE) 2.5 mg tablet Take 1 tablet by mouth three times a day. 90 tablet 5 03/02/2025 Active phentermine hydrochloride 37.5 mg oral tablet (6 sources) Sympathomimetic Amine Anorectic Start: 02-10-20 take 1 tablet by mouth once daily Phentermine HCl 37.5 mg tablet Take 1 tablet by mouth once daily. 02/09/2025 Active topiramate 25 mg oral tablet (6 sources) Start: 02-08-20 take 1 tablet by mouth twice daily before mealtime topiramate (TOPAMAX) 25 mg tablet Take 25 mg by mouth two times a day before meals. 02/07/2025 Active Completed/Discontinued Medications Medication Drug Class(es) Dates Sig (Normalized) Sig (Original) brompheniramine maleate 0.4 mg/ml / dextromethorphan hydrobromide 2 mg/ml / pseudoephedrine hydrochloride 6 mg/ml oral solution (5 sources) alpha-Adrenergic Agonist, Uncompetitive K-dhvhqt-G-asparta te Receptor Antagonist, Sigma-1 Agonist Start: 11-10-2018 End: 07-03-2022 take 10 mL by mouth every six hours as needed Brompheniramine-Pse udoeph-DM (BROMFED DM) 2-30-10 mg/5 mL syrup Take 10 mL by mouth four times daily as needed. 200 mL 0 11/10/2018 07/03/2022 Discontinued Comment on above: Take 10 mL by mouth four times daily as needed. 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) Carrier or suspected carrier of Methicillin resistant Staphylococcus aureus surgical prep shower with hibiclens once daily for one week chondroitin sulfates 200 mg / glucosamine hydrochloride 250 mg oral tablet (13 sources) Start: 03-29-2022 End: 07-04-2022 Glucosamine-Chondro itin (Osteo Bi-Flex) 250-200 mg tablet Discontinued 2 {tbl} PO DAILY March 29, 2022 12:00am July 04, 2022 3:36pm doxycycline hyclate 100 mg oral capsule (11 sources) Tetracycline-class Drug Start: 10-01-2022 End: 01-07-2023 take 1 capsule by mouth twice daily Doxycycline Hyclate 100 mg capsule Discontinued 100 mg PO TWICE A DAY 7 0 October 01, 2022 1:00am January 07, 2023 9:34am meloxicam 15 mg oral tablet (5 sources) Nonsteroidal Anti-inflammatory Drug Start: 07-15-2023 End: 08-20-2023 take 1 tablet by mouth once daily Meloxicam 15 mg tablet Discontinued 15 mg PO DAILY July 15, 2023 1:00am August 20, 2023 2:17pm methIMAzole 5 mg oral tablet (20 sources) Thyroid Hormone Synthesis Inhibitor Start: 07-12-2022 End: 03-02-2025 take 2.5 mg by mouth once daily Methimazole 5 mg tablet Discontinued 2.5 mg PO DAILY 15 August 08, 2022 11:03am August 26, 2022 3:14pm Start: 07-12-2022 End: 08-26-2022 take 2.5 mg by mouth once daily Methimazole Discontinued 2.5 MG PO DAILY August 08, 2022 10:03am August 26, 2022 2:14pm Comment on above: Take 2.5 mg by mouth once daily. multivit-min/FA/ly copen/lutein (CENTRUM SILVER MEN ORAL) (9 sources) Start: 03-16-2021 End: 03-02-2025 take 1 tablet by mouth once daily multivit-min/FA/lycope n/lutein (CENTRUM SILVER MEN ORAL) Take 1 tablet by mouth once daily. 03/16/2021 03/02/2025 Discontinued (Discontinued by Patient) Start: 03-16-2021 take 1 tablet by юлия th once daily multivit-min/FA/lycopen/lutein (CENTRUM SILVER MEN ORAL) Take 1 tablet by mouth once daily. 03/16/2021 Active Start: 03-16-2021 take 1 tablet by юлия th once daily multivit-min/FA/lycopen/lutein (CENTRUM SILVER MEN ORAL) Take 1 tablet by mouth once daily. 0 03/16/2021 Active Comment on above: Take 1 tablet by юлия th once daily. 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) Carrier or suspected carrier of Methicillin resistant Staphylococcus aureus Surgical prep apply to a qtip into bilateral nares bid X 1 week Start: 07-16-2023 End: 08-20-2023 Mupirocin 2 % ointment Disco ntinued 1 NMA TOPICAL TWICE A DAY July 16, 2023 1:00am August 20, 2023 2:17pm apply to a qtip into bilateral nares bid X 1 week Start: 07-16-2023 Mupirocin Acti ve 1 APPLIC TOPICAL TWICE A DAY July 16, 2023 12:00am apply to a qtip into bilateral nares bid X 1 week Start: 10-01-2022 End: 01-07-2023 Mupirocin 2 % ointment Disco ntinued 1 NMA TOPICAL TWICE A DAY 0 October 01, 2022 1:00am January 07, 2023 9:35am naproxen sodium 220 mg oral tablet (20 sources) Nonsteroidal Anti-inflammatory Drug Start: 03-16-2021 End: 03-02-2025 take 2 tablets by mouth once daily as needed naproxen sodium (ALEVE) 220 mg tablet Take 440 mg by mouth once daily as needed. 03/16/2021 03/02/2025 Discontinued (Discontinued by Patient) Start: 04-11-2020 End: 07-15-2023 take 1 capsule by mouth twice daily as needed Naproxen Sodium (Aleve) 220 mg capsule Discontinued 220 mg PO TWICE A DAY as needed April 11, 2020 12:00am July 15, 2023 9:31am Comment on above: Take 440 mg by mouth once daily as needed. oxyCODONE hydrochloride 5 mg oral tablet (4 sources) Opioid Agonist Start: 4 End: 4 take 1 tablet by mouth every six hours as needed for pain Oxycodone 5 mg tablet Discontinued 5 mg PO EVERY 6 HOURS as needed for pain 10 3 0 September 29, 2023 October 10, 2023 9:05am Status post umbilical hernia repair, follow-up exam Vitamin B Comp And C No.3 (B Complex Plus Vitamin C) 85-53-33-5-300 mg capsule (4 sources) Start: 4 End: 5 Vitamin B Comp And C No.3 (B Complex Plus Vitamin C) 38-66-19-5-300 mg capsule Discontinued 1 NMA PO DAILY August 20, 2023 1:00am February 28, 2025 8:20am give with food (meal/snack) Start: 08-20-2023 Vitamin B Comp And C No.3 (B Complex Plus Vitamin C) 26-51-31-5-300 mg capsule Active 1 NMA PO DAILY August 20, 2023 1:00am give with food (meal/snack) Vitamin B Complex (B Complex-Vitamin B12) tablet (17 sources) Start: 02-07-2022 End: 07-04-2022 Vitamin B Complex (B Complex-Vitamin B12) tablet Discontinued 1 {tbl} PO DAILY February 07, 2022 12:00am July 04, 2022 3:36pm Start: 02-07-2022 End: 07-04-2022 take 1 tablet by mouth once daily Vitamin B Complex (B Complex-Vitamin B12) tablet Discontinued 1 TABLET PO DAILY February 07, 2022 12:00am July 04, 2022 3:36pm Start: 02-07-2022 End: 07-04-2022 take 1 tablet by mouth once daily Vitamin B Complex (B Complex-Vitamin B12) tablet Discontinued 1 TABLET PO DAILY February 06, 2022 11:00pm July 04, 2022 2:36pm Start: 02-07-2022 take 1 tablet by юлия th once daily Vitamin B Complex (B Complex-Vitamin B12) tablet Active 1 TABLET PO DAILY February 07, 2022 12:00am Problems Active Problems Problem Classification Problem Date Documented Da te Episodic/Chronic Abdominal hernia (12 sources) Umbilical hernia; Translations: [Umbilical hernia without obstruction or gangrene] 07-15-2023 Episodic Adjustment disorders (4 sources) Adjustment disorder with mixed emotional features; Translations: [Adjustment disorder with other symptoms] Onset: 03-01-2025 03-01-2025 Chronic Administrative/social admission (4 sources) Patient encounter status; Translations: [Encounter for other administrative examinations] Onset: 03-01-2025 03-01-2025 Episodic Anxiety disorders (8 sources) Anxiety state; Translations: [Generalized anxiety disorder] Onset: 03-01-2025 03-01-2025 Chronic Cardiac dysrhythmias (20 sources) Atrial paroxysmal tachycardia; Translations: [Supraventricular tachycardia] Onset: 04-30-2022 Chronic Cardiac dysrhythmias (5 sources) Palpitations; Translations: [Palpitations] Onset: 02-28-2025 01-16-2024 Episodic Conduction disorders (2 sources) Patient encounter status; Translations: [Encounter for adjustment and management of other part of cardiac pacemaker] Onset: 03-02-2025 03-02-2025 Chronic Essential hypertension (20 sources) Essential hypertension; Translations: [Essential (primary) hypertension] Onset: 08-30-2024 10-01-2022 Chronic Heart valve disorders (20 sources) Mitral valve prolapse; Translations: [Nonrheumatic mitral (valve) prolapse] Onset: 08-30-2024 03-26-2022 Chronic Hemorrhoids (4 sources) External hemorrhoids; Translations: [Residual hemorrhoidal skin tags] Onset: 03-01-2025 03-01-2025 Episodic Immunizations and screening for infectious disease (20 sources) Contact with and (suspected) exposure to other viral communicable diseases; Translations: [Contact with or suspected exposure to other viral communicable disease] 02-05-2022 Episodic Intracranial injury (20 sources) History of concussion injury of brain; Translations: [Personal history of traumatic brain injury] Onset: 2022 Episodic Comment on above: Frequent Nonspecific chest pain (20 sources) Chest pain; Translations: [Chest pain, unspecified] Onset: 03-28-2025 Episodic Other acquired deformities (2 sources) Kyphosis of thoracic spine; Translations: [Unspecified kyphosis, thoracic region] 03-31-2025 Chronic Other aftercare (4 sources) History of repair of umbilical hernia; Translations: [Encounter for follow-up examination after completed treatment for conditions other than malignant neoplasm] 02-11-2024 Episodic Other circulatory disease (1 source) Presence of other cardiac implants and grafts; Translations: [Other specified cardiac device in situ] 03-02-2025 Chronic Other ear and sense organ disorders (1 source) Hearing loss associated with syndrome; Translations: [Unspecified hearing loss, right ear] Chronic Other gastrointestinal disorders (5 sources) H/O: abdominal hernia; Translations: [Personal history of other diseases of the digestive system] 07-15-2023 Episodic Other injuries and conditions due to external causes (20 sources) Closed injury of head; Translations: [Unspecified injury of head, initial encounter] Onset: 03-01-2025 01-21-2022 Episodic Other lower respiratory disease (11 sources) Dyspnea on exertion; Translations: [Other forms of dyspnea] 01-07-2023 Episodic Other lower respiratory disease (3 sources) Other forms of dyspnea; Translations: [Other respiratory abnormalities] 01-07-2023 Episodic Other nervous system disorders (16 sources) Inherited autonomic nervous system disorder; Translations: [Other disorders of autonomic nervous system] Onset: 03-01-2025 05-30-2022 Chronic Other nervous system disorders (1 source) Other disorders of autonomic nervous system; Translations: [Unspecified disorder of autonomic nervous system] Chronic Other nutritional; endocrine; and metabolic disorders (17 sources) Body mass index 40+ - severely obese; Translations: [Morbid (severe) obesity due to excess calories] Onset: 07-03-2022 Chronic Other nutritional; endocrine; and metabolic disorders (9 sources) Body mass index 30+ - obesity; Translations: [Obesity, unspecified] 01-16-2024 Chronic Other nutritional; endocrine; and metabolic disorders (1 source) Obesity, unspecified; Translations: [Obesity, unspecified] Onset: 08-30-2024 Chronic Spondylosis; intervertebral disc disorders; other back problems (6 sources) Degeneration of lumbar intervertebral disc; Translations: [Degeneration of intervertebral disc of lumbar region] 10-07-2024 Chronic Spondylosis; intervertebral disc disorders; other back problems (9 sources) Lumbar radiculopathy; Translations: [Radiculopathy, lumbar region] Onset: 10-01-2024 10-07-2024 Episodic Syncope (20 sources) Vasovagal syncope; Translations: [Syncope and collapse] Onset: 2022 Episodic Syncope (4 sources) Syncope Thyroid disorders (3 sources) Hyperthyroidism; Translations: [Thyrotoxicosis, unspecified without thyrotoxic crisis or storm] Onset: 10-28-2024 Chronic Thyroid disorders (20 sources) Disorder of thyroid gland; Translations: [Disorder of thyroid, unspecified] Episodic Unclassified (1 source) Encounter for screening for COVID-19; Translations: [Encounter for screening for COVID-19] Onset: 08-19-2022 Unclassified (1 source) M54.16 - Radiculopathy, lumbar region,M51.369 - Other intervertebral disc degeneration, lumbar region without mention of lumbar back pain or lower extremity pain Unclassified (1 source) Low back pain, unspecified; Translations: [Low back pain, unspecified] Onset: 10-07-2024 Past or Other Problems Problem Classification Problem Date Documented Da te Episodic/Chronic Fracture of lower limb (1 source) Unspecified fracture of unspecified toe(s), initial encounter for closed fracture; Translations: [Unspecified fracture of unspecified toe(s), initial encounter for closed fracture] Onset: 06-16-2024 Episodic Other connective tissue disease (19 sources) Impingement syndrome of right shoulder region; Translations: [Impingement syndrome of right shoulder] Onset: 09-14-2019 09-14-2019 Episodic Other gastrointestinal disorders (1 source) Personal history of other diseases of the digestive system; Translations: [Personal history of other diseases of digestive system] 07-15-2023 Episodic Other screening for suspected conditions (not mental disorders or infectious disease) (16 sources) Thyroid function tests abnormal; Translations: [Abnormal results of thyroid function studies] Onset: 01-31-2022 06-17-2022 Episodic Residual codes; unclassified (9 sources) Other specified postprocedural states; Translations: [Personal history of surgery to other organs] Onset: 08-30-2024 10-01-2022 Episodic Unclassified (2 sources) Patient encounter status 03-02-2025 Results Test Name Value Interpretation Reference Range Facility T4 Free Directon 04-08-2025 T4 FREE DIRECT 1.30 ng/dL Normal 0.76-1.46 [facility] Comment on above: Order Comment: Order Date: 04/07/25 Order Info: 3016-3 - TSH Order Info: 3024-7 - T4F Performed By: #### L 506.0400, L501.9520 #### [facility] [address] [place], [address] Thyroid Stim Hormone (TSH)on 04-08-2025 TSH 0.582 uIU/mL Normal 0.300-4.200 [facility] Comment on above: Order Comment: Order Date: 04/07/25 Order Info: 3016-3 - TSH Order Info: 3024-7 - T4F Performed By: #### L 506.0400, L501.9520 #### [facility] [address] [place], [address] CNPNon 04-05-2025 CNPN Telephone (CARDMN) -------- SONYAPAULO Ema ([id number]) 1985 M Date Time Provider Department 04/05/25 ROSA ISELA SANTILLAN During your visit today, we recorded the following information about you: Isabel Zafar RN 04/05/2025 12:28 PM Signed ----- Message from Rosa Isela Santillan DO sent at 04/01/2025 7:45 AM EDT ----- I messaged Paulo that his CTA incidentally showed a nodular goiter and asked that he follow up with his PCP, I tried calling their office in [place] not [place] yet and no voicemail, please try to contact them today to let them know that Paulo will be reaching out to have his thyroid evaluated. Isabel Sumner, RN 04/05/2025 12:29 PM Signed Spoke with pt who stated his PCP is Dr. Barrios and he will contact the office to discuss evaluation. Advised to provide fax number if they need testing. Emely RUELAS Allergies As of Date: 04/05/2025 Noted Allergy Reaction LIDOCAINE 08/12/2018 5 - Intolerance Comments: Does not work well for him NOVACAINE (PROCAINE) 08/12/2018 5 - Intolerance Comments: Do not work well for him Date Reviewed: 03/28/2025 Reviewed by: Kelli Schaeffer RT(R) - Fully Assessed Prescriptions as of 04/05/2025 - Phentermine HCl 37.5 mg tablet Take 1 tablet by mouth once daily. - topiramate (TOPAMAX) 25 mg tablet Take 25 mg by mouth two times a day before meals. - celecoxib (CELEBREX) 100 mg capsule - cyclobenzaprine (FLEXERIL) 10 mg tablet TAKE 1 TABLET BY MOUTH TWICE A DAY NEEDED FOR SPASMS - methocarbamol (ROBAXIN) 500 mg tablet - midodrine (PROAMATINE) 2.5 mg tablet Take 1 tablet by mouth three times a day. - metoprolol succinate ER (TOPROL XL) 25 mg 24 hr tablet Take 25 mg by mouth once daily. Problem List As Of Date 04/05/2025 Noted Resolved Impingement syndrome of right shoulder [M75.41] 09/14/2019 Obesity, Class III, BMI >= 40 [E66.813] 07/03/2022 Adjustment disorder with mixed emotional featur*03/01/2025 Abnormal finding on thyroid function test [R94.*01/31/2022 Anxiety state [F41.1] 03/01/2025 Atrial paroxysmal tachycardia (HCC) [I47.19] 04/30/2022 Brain concussion [S06.0XAA] 03/01/2025 Closed head injury [S09.90XA] 03/01/2025 Health examination of defined subpopulation [Z0*03/01/2025 External hemorrhoids [K64.4] 03/01/2025 Inherited disorder of autonomic nervous system *03/01/2025 Chronic post-traumatic stress disorder [F43.12] 03/01/2025 Vasovagal syncope [R55] 2022 Encounter Status:Closed by ISABEL ZAFAR on 04/05/25 [facility] Orthopedic Visit Reporton Orthopedic Visit Report [facility] [address] [place] [address] OFFICE VISIT Date of Service: 03/31/25 MR#: [id number] Acct: [id number] Name: PAULO TRACY Rep #: [id number] : 1985 Provider: Dr. Mj Villanueva MD Age/Sex: 40/M Location: [facility] [facility] Status: Signed Intake Vital Signs 02/28/25 08:14 03/31/25 13:29 Height 6 ft 2 in 6 ft 2 in Weight: 252 lb 252 lb BMI 32.3 32.3 BP 133/68 H Blood Pressure Location Lt brachial Position Sitting Respiration 18 Pulse 70 Pulse Source Monitor Pulse Oximetry (%) 100 Oxygen Delivery Method room air Intake Visit Reasons: LUMBAR SPINE Chief Complaint: Lumbar Spine Pain Accompanied by: Self Is patient in pain?: Yes Pain scale (1-10): 3 Allergies lidocaine Allergy (Verified 03/31/25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 08:28-0500 Body height 187.96 cm DO Jemma Christensen Work Phone: [facility] 07-15-2023 08:28-0500 Body mass index (BMI) [Ratio] 38.6 kg/m2 DO Jemma Fermin Work Phone: [facility] 07-15-2023 08:28-0500 Body temperature 97.4 [degF] DO Jemma Fermin Work Phone: [facility] 07-15-2023 08:28-0500 Body weight 136.53 kg DO Jemma Fermin Work Phone: [facility] 07-15-2023 08:28-0500 Diastolic blood pressure 85 mm[Hg] DO Jemma Fermin Work Phone: [facility] 07-15-2023 08:28-0500 Heart rate 78 /min DO Jemma Fermin Work Phone: [facility] 07-15-2023 08:28-0500 Respiratory rate 18 /min DO Jemma Fermin Work Phone: [facility] 07-15-2023 08:28-0500 SaO2% (BldA) [Mass fraction] 98 % DO Jemma Fermin Work Phone: [facility] 07-15-2023 08:28-0500 Systolic blood pressure 154 mm[Hg] DO Jemma Fermin Work Phone: [facility] 01-07-2023 09:07-0400 Body height 187.96 cm DO Jemma Fermin Work Phone: [facility] 01-07-2023 09:07-0400 Body mass index (BMI) [Ratio] 39.9 kg/m2 DO Jemma Fermin Work Phone: [facility] 01-07-2023 09:07-0400 Body weight 141.06 kg DO Jemma Fermin Work Phone: [facility] 01-07-2023 09:07-0400 Diastolic blood pressure 73 mm[Hg] DO Jemma Fermin Work Phone: [facility] 01-07-2023 09:07-0400 Heart rate 74 /min DO Jemma Fermin Work Phone: [facility] 01-07-2023 09:07-0400 Respiratory rate 14 /min DO Jemmalibrado Barnettnger Work Phone: [facility] 01-07-2023 09:07-0400 Systolic blood pressure 137 mm[Hg] DO Jemmalibrado Barnettnger Work Phone: [facility] 10-01-2022 14:15-0500 Body mass index (BMI) [Ratio] 41.5 kg/m2 DO Jemma Barnettnger Work Phone: [facility] 10-01-2022 14:15-0500 Body weight 146.96 kg DO Jemma Barnettnger Work Phone: [facility] 10-01-2022 14:15-0500 Diastolic blood pressure 96 mm[Hg] DO Jemma Barnettnger Work Phone: [facility] 10-01-2022 14:15-0500 Heart rate 84 /min DO Jemma Barnettnger Work Phone: [facility] 10-01-2022 14:15-0500 Respiratory rate 20 /min DO Jemma Barnettnger Work Phone: [facility] 10-01-2022 14:15-0500 SaO2% (BldA) [Mass fraction] 97 % DO Jemma Barnettnger Work Phone: [facility] 10-01-2022 14:15-0500 Systolic blood pressure 141 mm[Hg] DO Jemma Barnettnger Work Phone: [facility] 08-13-2022 15:02-0500 Body height 188 cm Spring Beck APRN.CAREER DISCOVERY TEACHER Work Phone: [facility] 08-13-2022 15:02-0500 Body weight 142.43 kg Spring Beck APRN.CAREER DISCOVERY TEACHER Work Phone: [facility] 08-13-2022 15:02-0500 Diastolic blood pressure 76 mm[Hg] Spring Beck APRN.CAREER DISCOVERY TEACHER Work Phone: [facility] 08-13-2022 15:02-0500 Heart rate 74 /min Spring Beck BRASS MOLDER.CAREER DISCOVERY TEACHER Work Phone: [facility] 08-13-2022 15:02-0500 Respiratory rate 16 /min Spring Beck BRASS MOLDER.CAREER DISCOVERY TEACHER Work Phone: [facility] 08-13-2022 15:02-0500 Systolic blood pressure 132 mm[Hg] Spring Beck BRASS MOLDER.CAREER DISCOVERY TEACHER Work Phone: [facility] 07-04-2022 14:52-0500 Body height 187.96 cm DO Jemma Fermin Work Phone: [facility] Work Phone: 07-04-2022 14:37-0500 Body mass index (BMI) [Ratio] 40.3 kg/m2 DO Jemma Fermin Work Phone: [facility] Work Phone: 07-04-2022 14:37-0500 Body weight 142.42 kg DO Jemma Fermin Work Phone: [facility] Work Phone: 07-04-2022 14:37-0500 Diastolic blood pressure 76 mm[Hg] DO Jemma Fermin Work Phone: [facility] Work Phone: 07-04-2022 14:37-0500 Heart rate 80 /min DO Jemma Fermin Work Phone: [facility] Work Phone: 07-04-2022 14:37-0500 Respiratory rate 18 /min DO Jemma Fermin Work Phone: [facility] Work Phone: 07-04-2022 14:37-0500 SaO2% (BldA) [Mass fraction] 96 % DO Jemma Fermin Work Phone: [facility] Work Phone: 07-04-2022 14:37-0500 Systolic blood pressure 127 mm[Hg] DO Jemma Barnettnger Work Phone: [facility] Work Phone: 07-03-2022 08:21-0500 Body height 188 cm Ale Stubbs MD Work Phone: [facility] 07-03-2022 08:21-0500 Body weight 142.88 kg Ale Stubbs MD Work Phone: [facility] 06-17-2022 20:14-0500 Diastolic blood pressure 86 mm[Hg] DO Jemma Barnettnger Work Phone: [facility] Work Phone: 06-17-2022 20:14-0500 Heart rate 88 /min DO Jemma Barnettnger Work Phone: [facility] Work Phone: 06-17-2022 20:14-0500 Systolic blood pressure 128 mm[Hg] DO Jemma Barnettnger Work Phone: [facility] Work Phone: 06-17-2022 08:12-0500 Body mass index (BMI) [Ratio] 40.2 kg/m2 DO Jemma Barnettnger Work Phone: [facility] Work Phone: 06-17-2022 08:12-0500 Body temperature 97.8 [degF] DO Jemma Barnettnger Work Phone: [facility] Work Phone: 06-17-2022 08:12-0500 Body weight 142.2 kg DO Jemmalibrado Barnettnger Work Phone: [facility] Work Phone: 06-17-2022 08:12-0500 Respiratory rate 17 /min DO Jemma Fermin Work Phone: [facility] Work Phone: 06-17-2022 08:12-0500 SaO2% (BldA) [Mass fraction] 96 % DO Jemma Fermin Work Phone: [facility] Work Phone: 05-30-2022 10:36-0400 Body mass index (BMI) [Ratio] 39.9 kg/m2 DO Jemma Barnettnger Work Phone: [facility] Work Phone: 05-30-2022 10:36-0400 Body temperature 96.3 [degF] DO Jemma [facility] Work Phone: [facility] Work Phone: 05-30-2022 10:36-0400 Body weight 141.23 kg DO Jemma Barnettnger Work Phone: [facility] Work Phone: 05-30-2022 10:36-0400 Diastolic blood pressure 86 mm[Hg] DO [facility] Work Phone: [facility] Work Phone: 05-30-2022 10:36-0400 Heart rate 70 /min DO [facility] Work Phone: [facility] Work Phone: 05-30-2022 10:36-0400 Respiratory rate 18 /min DO Jemmalibrdao Barnettnger Work Phone: [facility] Work Phone: 05-30-2022 10:36-0400 SaO2% (BldA) [Mass fraction] 96 % DO Jemma Barnettnger Work Phone: [facility] Work Phone: 05-30-2022 10:36-0400 Systolic blood pressure 130 mm[Hg] DO Jemma Barnettnger Work Phone: [facility] Work Phone: 04-30-2022 10:27-0400 Body mass index (BMI) [Ratio] 39.9 kg/m2 DO Jemma [facility] Work Phone: [facility] Work Phone: 04-30-2022 10:27-0400 Body weight 141.06 kg DO Jemmalibrado Barnettnger Work Phone: [facility] Work Phone: 04-30-2022 10:27-0400 Diastolic blood pressure 59 mm[Hg] DO Jemmalibrado Barnettnger Work Phone: [facility] Work Phone: 04-30-2022 10:27-0400 Heart rate 63 /min DO Jemmalibrado Barnettnger Work Phone: [facility] Work Phone: 04-30-2022 10:27-0400 Respiratory rate 16 /min DO Jemma Fermin Work Phone: [facility] Work Phone: 04-30-2022 10:27-0400 Systolic blood pressure 119 mm[Hg] DO Jemmalibrado Barnettnger Work Phone: [facility] Work Phone: 03-29-2022 10:38-0400 Body height 187.96 cm DO Jemma Barnettnger Work Phone: [facility] Work Phone: 03-29-2022 10:38-0400 Body mass index (BMI) [Ratio] 39.9 kg/m2 DO Jemma Barnettnger Work Phone: [facility] Work Phone: 03-29-2022 10:38-0400 Body weight 140.86 kg DO Jemmalibrado Barnettnger Work Phone: [facility] Work Phone: 03-29-2022 10:38-0400 Diastolic blood pressure 80 mm[Hg] DO Jemma Fermin Work Phone: [facility] Work Phone: 03-29-2022 10:38-0400 Heart rate 72 /min DO Jemma Fermin Work Phone: [facility] Work Phone: 03-29-2022 10:38-0400 Respiratory rate 16 /min DO Jemma Barnettnger Work Phone: [facility] Work Phone: 03-29-2022 10:38-0400 Systolic blood pressure 134 mm[Hg] DO Jemmalibrado Barnettnger Work Phone: [facility] Work Phone: 02-21-2022 10:19-0400 Diastolic blood pressure 88 mm[Hg] DO Jemmalibrado Barnettnger Work Phone: [facility] Work Phone: 02-21-2022 10:19-0400 Heart rate 75 /min DO Jemmalibrado Barnettnger Work Phone: [facility] Work Phone: 02-21-2022 10:19-0400 Systolic blood pressure 134 mm[Hg] DO Jemmalibrado Barnettnger Work Phone: [facility] Work Phone: 02-21-2022 09:52-0400 Body height 187.96 cm DO Jemma Barnettnger Work Phone: [facility] Work Phone: 02-21-2022 09:52-0400 Body mass index (BMI) [Ratio] 39.1 kg/m2 DO Jemma Barnettnger Work Phone: [facility] Work Phone: 02-21-2022 09:52-0400 Body weight 138.34 kg DO Jemmalibrado Barnettnger Work Phone: [facility] Work Phone: 02-21-2022 09:52-0400 Respiratory rate 16 /min DO Jemma Fermin Work Phone: [facility] Work Phone: 02-07-2022 23:15-0400 Diastolic blood pressure 80 mm[Hg] DO Jemma Barnettnger Work Phone: [facility] Work Phone: 02-07-2022 23:15-0400 Heart rate 76 /min DO Jemma Barnettnger Work Phone: [facility] Work Phone: 02-07-2022 23:15-0400 Systolic blood pressure 120 mm[Hg] DO Jemma [facility] Work Phone: [facility] Work Phone: 02-07-2022 10:42-0400 Body height 187.96 cm DO Jemmalibrado Barnettnger Work Phone: [facility] Work Phone: 02-07-2022 10:42-0400 Body mass index (BMI) [Ratio] 39.1 kg/m2 DO [facility] Work Phone: [facility] Work Phone: 02-07-2022 10:42-0400 Body temperature 97.7 [degF] DO [facility] Work Phone: [facility] Work Phone: 02-07-2022 10:42-0400 Body weight 138.34 kg DO Jemma Barnettnger Work Phone: [facility] Work Phone: 02-07-2022 10:42-0400 Respiratory rate 16 /min DO Jemmalibrado Barnettnger Work Phone: [facility] Work Phone: 02-07-2022 10:42-0400 SaO2% (BldA) [Mass fraction] 96 % DO Jemmalibrado Barnettnger Work Phone: [facility] Work Phone: 01-13-2022 13:05-0400 Diastolic blood pressure 82 mm[Hg] [facility] Work Phone: 01-13-2022 13:05-0400 Heart rate 59 /min [facility] Work Phone: 01-13-2022 13:05-0400 Respiratory rate 16 /min [facility] Work Phone: 01-13-2022 13:05-0400 SaO2% (BldA) [Mass fraction] 100 % [facility] Work Phone: 01-13-2022 13:05-0400 Systolic blood pressure 155 mm[Hg] [facility] Work Phone: 01-13-2022 11:07-0400 Body height 187.96 cm [facility] Work Phone: 01-13-2022 11:07-0400 Body mass index (BMI) [Ratio] 38.1 kg/m2 [facility] Work Phone: 01-13-2022 11:07-0400 Body temperature 97.6 [degF] [facility] Work Phone: 01-13-2022 11:07-0400 Body weight 134.8 kg [facility] Work Phone: Encounters Encounter Date Encounter Type Care Provider Facility Start: 04-20-2025 ambulatory [facility] Facility:[facility] Start: 04-08-2025 ambulatory [facility] Facility:[facility] Start: 04-05-2025 End: 04-05-2025 Telephone encounter Rosa Isela Santillan DO Work Phone: [facility]iology Start: 03-31-2025 End: 03-31-[address] Mj Villanueva MD -[facility] Work Phone: Start: 03-31-2025 End: 03-31-2025 ambulatory Reggie Barrios MD Work Phone: -[facility] Start: 03-28-2025 ambulatory ROSA ISELA SANTILLAN Fa cility:[facility] Start: 03-28-2025 End: 03-28-2025 Subsequent hospital visit by physician Ct Main J (I-Stat) Work Phone: Radiology Comment on above: Other chest pain [R0 7.89] Start: 03-02-2025 End: 03-02-2025 Subsequent hospital visit by physician [facility] Work Phone: Cardiology Comment on above: Pacemaker reprogramm ing/check [Z45.018] Start: 03-02-2025 End: 03-02-2025 Patient encounter procedure Rosa Isela Santillan DO Work Phone: Cardiology Comment on above: Syncope, unspecified syncope type (Primary Dx); Other chest pain; Chronic thoracic back pain, unspecified back pain laterality; Implantable loop recorder present Start: 03-02-2025 End: 03-02-2025 ambulatory ROSA ISELA SANTILLAN Facility:[facility] Start: 03-02-2025 End: 03-02-2025 ambulatory ROSA ISELA SANTILLAN Facility:[facility] Start: 02-28-2025 End: 02-28-2025 Telephone encounter Rosa Isela Santillan DO Work Phone: Cardiology Comment on above: Received Referral an d Outside Medical Records Syncope, unspecified syncope type (Primary Dx) Start: 02-28-2025 End: 02-28-2025 Patient encounter procedure Etienne OSWALD -[facility] Work Phone: Start: 02-28-2025 End: 02-28-2025 ambulatory Reggie Barrios MD Work Phone: -[facility] Start: 02-19-2025 End: 02-19-2025 ambulatory Reggie Barrios MD Work Phone: -[facility] Start: 02-19-2025 End: 02-19-[address] Josue Lindsay MD -[facility] Work Phone: Start: 11-20-2024 End: 11-20-2024 ambulatory Reggie Barrios Facility:[facility] Start: 11-20-2024 End: 11-20-[address] Josue Lindsay MD -[facility] Work Phone: Start: 10-22-2024 End: 10-22-2024 ambulatory Reggie Barrios MD Work Phone: [facility] Work Phone: Start: 10-22-2024 End: 10-22-[address] [facility] Start: 10-22-2024 End: 10-22-2024 ambulatory Chalon Sophie Facility:[facility] Start: 10-07-2024 End: 10-07-2024 Patient encounter procedure Lisa DOLL -[facility] Work Phone: Start: 10-07-2024 End: 10-07-2024 ambulatory Chalciara Sophie Facility:[facility] Start: 09-20-2024 End: 09-20-[address] Reggie Barrios MD -[facility] Work Phone: Start: 09-20-2024 End: 09-20-2024 ambulatory Reggie Barrios Facility:[facility] Start: 08-30-2024 End: 08-30-[address] Eros Telles MD -[facility] Work Phone: Start: 08-30-2024 End: 08-30-2024 ambulatory Chalciara Sophie Facility:[facility] Start: 08-21-2024 End: 08-21-2024 ambulatory Chalciara Sophie Facility:[facility] Start: 08-21-2024 End: 08-21-[address] Josue Lindsay MD -[facility] Work Phone: Start: 08-16-2024 End: 08-16-[address] [facility] Start: 08-16-2024 End: 08-16-2024 ambulatory Chalciara Sophie Facility:[facility] Start: 06-02-2024 End: 06-02-2024 Telephone encounter [facility] Start: 05-27-2024 End: 05-27-2024 ambulatory Chalon Sophie Facility:[facility] Start: 05-22-2024 End: 05-22-2024 ambulatory Chalon Sophie Facility:[facility] Start: 05-17-2024 End: 05-17-2024 ambulatory Chalon Sophie Facility:[facility] Start: 07-15-2023 End: 07-15-2023 ambulatory DO Jemma Christensen Work Phone: [facility] Work Phone: Start: 07-15-2023 End: 07-15-2023 Patient encounter procedure DO Jemma Christensen Work Phone: [facility]-Laboratory, Spec[facility] Work Phone: Start: 07-15-2023 Patient encounter status DO Lonnie Christensen Work Phone: [facility] Start: 07-15-2023 End: 07-15-2023 Patient encounter procedure DO Jemma Christensen Work Phone: [facility] Work Phone: Start: 07-02-2023 End: 07-02-2023 ambulatory [facility] Work Phone: Start: 07-02-2023 End: 07-02-2023 Patient encounter procedure [facility]Radiology, [place] Work Phone: Start: 06-18-2023 End: 06-18-2023 ambulatory [facility] Work Phone: Start: 06-18-2023 End: 06-18-2023 Patient encounter procedure [facility]-Cat Scan, [facility] Work Phone: Start: 06-18-2023 End: 06-18-2023 ambulatory [facility] Work Phone: Start: 06-18-2023 End: 06-18-2023 Patient encounter procedure [facility]Radiology, [place] Work Phone: Start: 05-12-2023 End: 05-12-2023 Patient encounter procedure [facility] [place] [facility] Start: 05-05-2023 End: 05-05-2023 Patient encounter procedure [facility]Ultrasound, [facility] Work Phone: Start: 01-28-2023 Non-patient / Non-visit DO Mickie Christensen Work Phone: [facility] Work Phone: Start: 01-28-2023 Non-patient / Non-visit DO Mickie Christensen Work Phone: [facility] Start: 01-27-2023 End: 01-27-2023 ambulatory DO Jemma Christensen Work Phone: [facility] Work Phone: Start: 01-27-2023 End: 01-27-2023 Patient encounter procedure DO [facility] Work [facility] Start: 01-24-2023 End: 01-24-2023 ambulatory DO Jemma Christensen Work Phone: [facility] Work Phone: Start: 01-24-2023 End: 01-24-2023 Patient encounter procedure DO Jemma Rochaer Work Phone: [facility] Start: 01-14-2023 End: 01-14-2023 ambulatory DO Jemma Rochaer Work Phone: [facility] Work Phone: Start: 01-14-2023 End: 01-14-2023 Patient encounter procedure DO Jemma Rochaer Work Phone: [facility] Start: 01-07-2023 End: 01-07-2023 Patient encounter procedure DO Jemma Barnettnger Work Phone: [facility] Start: 10-25-2022 End: 10-25-2022 Patient encounter procedure DO Jemma Barnettnger Work Phone: [facility] Start: 10-22-2022 Telephone encounter Ale Stubbs MD Work Phone: Cardiology Comment on above: Appointment (Cancell ation 01/22/23) Start: 10-01-2022 End: 10-01-2022 Patient encounter procedure DO Jemma Christensen Work Phone: [facility] Start: 09-12-2022 Orders Only Aminah Yazjennifer marquise BRASS MOLDER.CAREER DISCOVERY TEACHER Work Phone: Cardiology Start: 08-19-2022 End: 08-19-2022 ambulatory ALE STUBBS Facility:[id number] Comment on above: Patient Education (E PS) Start: 08-14-2022 Orders Only Ale rizvi MD Work Phone: Cardiology Comment on above: Syncope, unspecified syncope type (Primary Dx) Start: 08-13-2022 End: 08-13-2022 Patient encounter procedure Spring Beck BRASS MOLDER.CAREER DISCOVERY TEACHER Work Phone: Cardiology Comment on above: Syncope, unspecified syncope type (Primary Dx); Obesity, Class III, BMI >= 40; Hyperthyroid; 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; Pre-op exam Start: 08-13-2022 End: 08-13-2022 Preprocedural examination done Spring Beck BRASS MOLDER.CAREER DISCOVERY TEACHER Work Phone: Cardiology Start: 07-10-2022 End: 07-10-2022 ambulatory DO Ejmma Aury Fermin Work Phone: [facility] Work Phone: Start: 07-10-2022 End: 07-10-2022 Patient encounter procedure DO Jemma Christensen Work Phone: [facility]Nuclear Medicine, [facility] Start: 07-05-2022 Telephone encounter Ale Stubbs MD Work Phone: Cardiology Comment on above: Received Outside Med [facility] Records Schedule Surgery (EP S- EP Study +/- SVT RFA, +/- Loop) Start: 07-04-2022 End: 07-04-2022 Patient encounter procedure DO Jemma Christensen Work Phone: [facility] Start: 07-03-2022 End: 07-03-2022 Patient encounter procedure Ale Stubbs MD Work Phone: Cardiology Comment on above: Obesity, Class III, BMI >= 40 (Primary Dx); Syncope, unspecified syncope type Start: 06-17-2022 End: 06-17-2022 Patient encounter procedure DO Jemma Christensen Work Phone: [facility] Neurology Start: 06-06-2022 Telephone encounter Ale Stubbs MD Work Phone: Cardiology Comment on above: Received Outside [employer] Records Start: 05-30-2022 End: 05-30-2022 Patient encounter procedure DO Jemma Christensen Work Phone: [facility] Endocrinology Start: 04-30-2022 End: 04-30-2022 Patient encounter procedure DO Jemma Christensen Work Phone: [facility] Start: 04-18-2022 End: 04-18-2022 ambulatory DO Jemma Christensen Work Phone: [facility] Work Phone: Start: 04-18-2022 End: 04-18-2022 Patient encounter procedure DO Jemma Christensen Work Phone: [facility] Start: 04-12-2022 Telephone encounter Ale Stubbs MD Work Phone: Cardiology Comment on above: Appointment (New Pat ient) Start: 04-01-2022 Telephone encounter Ale Stubbs MD Work Phone: Cardiology Comment on above: Received Outside [employer] ([id number]) Start: 03-29-2022 End: 03-29-2022 Patient encounter procedure DO Jemma Christensen Work Phone: [facility] Start: 2022 ambulatory HUGO Dickson [id number] Start: 2022 End: 2022 Subsequent hospital visit by physician [employer] [employer] [facility] James Work Phone: [facility] Comment on above: Personal history of traumatic brain injury [Z87.820] Start: 03-07-2022 End: 03-07-2022 Patient encounter procedure DO [facility]em[facility] Start: 03-07-2022 Non-patient / Non-visit DO Mickie Christensen Work Phone: [facility] Start: 03-07-2022 End: 03-07-2022 Patient encounter procedure DO Jemma Christensen [facility] Start: 02-28-2022 Non-patient / Non-visit DO Mickie Christensen Work Phone: [facility] Start: 02-28-2022 End: 02-28-2022 Patient encounter procedure DO Jemma Christensen [facility] Start: 02-21-2022 End: 02-21-2022 Patient encounter procedure DO Jemma Christensen Work Phone: [facility] Start: 02-15-2022 End: 02-15-2022 Patient encounter procedure DO Jemma Rochaer [facility] Start: 02-12-2022 Registered Referred DO Jemma Rochaer [facility] Start: 02-08-2022 Non-patient / Non-visit DO Mickie Rochaer Work Phone: [facility] Start: 02-07-2022 End: 02-07-2022 Patient encounter procedure DO Jemma Rochaer Work Phone: [facility] Neurology Start: 01-29-2022 End: 01-29-2022 Patient encounter procedure [facility] Start: 01-24-2022 End: 01-24-2022 Patient encounter procedure [facility] Start: 01-22-2022 End: 01-22-2022 Patient encounter procedure [facility] Start: 01-13-2022 End: 01-13-2022 [facility] Date Procedure Procedure Detail Performing Clinician Start: 03-28-2025 Ct angiography chest w/contrast/noncontrast Rosa Isela Santillan DO Work Phone: Start: 03-02-2025 Prgrmg dev eval implantable subq lead dfb system Murj Provider Start: 10-07-2024 X-ray of lumbosacral spine Reggie Barrios MD Work Phone: Start: 09-20-2024 MRI of lumbar spine Arcelia Barrios MD Work Phone: Start: 08-16-2024 Xray thoracic spine Arcelia Barrios MD Work Phone: Start: 08-16-2024 X-ray of lumbar spin e, two or three views Reggie Barrios MD Work Phone: Start: 07-15-2023 Nasal Screen MRSA/MSSA DO Jemma Christensen Work Phone: Start: 07-02-2023 Plain X-ray of toe Start: 06-18-2023 Computed tomography of abdomen and pelvis with contrast Start: 06-18-2023 Plain X-ray of toe Start: 05-05-2023 US scan of thyroid Start: 07-10-2022 Radionuclide thyroid imaging DO Jemma Christensen Work Phone: Start: 2022 Mri brain brain stem w/o w/contrast material Hugo Krishna MD Work Phone: Start: 01-13-2022 CT of head without contrast Start: 08-14-2018 Lipid 1996 panel - S miquel or Plasma Norberto Patino MD Work Phone: H/O: surgery History of loop recorder DO Jemma Christensen Work Phone: Comment on above: Implanted at [facility] EP 08/20/2022; H/O: surgery History of loop recorder Dr. Eros Telles MD H/O: surgery History of loop recorder Etienne OSWALD Plan of Treatment Date Care Activity Detail Author Start: 11-08-2034 Urine microalbumin profile DTa P,Tdap,Td Vaccine (4 - Td or Tdap) [facility] Start: 01-14-2032 Urine microalbumin profile DTa P,Tdap,Td Vaccine (3 - Td or Tdap) [facility] Start: 09-02-2025 CARDIAC IMPLANTABLE DEVICE CHECK CARDIAC IMPLANTABLE DEVICE CHECK PACEART Routine Syncope, unspecified syncope type Expected: 09/02/2025 [facility] Comment on above: Expected: 09/02/2025 Start: 09-02-2025 End: 09-02-2025 Patient encounter procedure Cardiology Comment on above: Device check Sched pt per [facility]VI ord er 6 month f/u F2F Start: 09-02-2025 End: 09-02-2025 ambulatory 09/02/2025 10:45 AM EST Procedure Cardiology [address] [place] [address] EKG Cardiology Comment on above: EKG Start: 04-18-2025 End: 04-18-2025 Patient encounter procedure 04/18/2025 2:40 PM EDT Office Visit [facility] [address] [place] [address] Colette Minor MD [address] [place] [address] BACK PAIN [facility] Comment on above: BACK PAIN Start: 04-04-2025 Influenza vaccination Influenza Vacc ine (#1) [facility] Start: 03-28-2025 End: 03-28-2025 Patient encounter procedure 03/28/2025 2:45 PM EDT Appointment Radiology [address] [id number] CTA CHEST (GATED) W IVCON Radiology Comment on above: CTA CHEST (GATED) W IVCON Start: 03-16-2025 End: 03-16-2025 Patient encounter procedure 03/16/2025 2:00 PM EDT Office Visit Rehab Medicine [address] [place] [address] Colette Minor MD [address] [place], [place] [id number] BACK PAIN [facility] Comment on above: BACK PAIN Start: 03-02-2025 End: 03-02-2025 Patient encounter procedure 03/02/2025 2:15 PM EDT Office Visit Cardiology [address] [place] [address] Rosa Isela Santillan DO [address] [place] [address] Syncope Cardiology Comment on above: Syncope Start: 03-02-2025 End: 03-02-2025 ambulatory 03/02/2025 1:30 PM EDT Procedure Cardiology [address] [place] [address] Syncope Cardiology Comment on above: Syncope Start: 02-28-2025 Evaluation of diagno stic study results [facility] Start: 10-07-2024 Patient referral [facility] Work Phone: Start: 04-04-2024 Covid-19 Vaccine ( season) Covid-19 Vaccine ( season) [facility] Start: 04-04-2024 Influenza vaccination Influenza Vacc ine (#1) [facility] Start: 08-14-2023 Lipid panel Lipid Screening [facility] Start: 08-14-2023 LIPID SCREEN LIPID SCREEN [facility] Start: 01-07-2023 Patient referral [facility] Work Phone: Start: 08-13-2022 End: 10-13-2022 CBC panel - Blood by Automated count CBC Lab Routine Pre-op exam Expected: 08/13/2022, Expires: 10/13/2022 [facility] Work Phone: Comment on above: Expected: 08/13/2022 , Expires: 10/13/2022 Start: 08-13-2022 End: 10-13-2022 Thyrotropin [Units/volume] in Serum or Plasma TSH BLD Lab Routine Hyperthyroid Expected: 08/13/2022, Expires: 10/13/2022 [facility] Work Phone: Comment on above: Expected: 08/13/2022 , Expires: 10/13/2022 Start: 08-13-2022 End: 10-13-2022 Thyroxine (T4) free [Mass/volume] in Serum or Plasma [facility] Work Phone: Comment on above: Expected: 08/13/2022 , Expires: 10/13/2022 Start: 08-13-2022 End: 10-13-2022 Triiodothyronine (T3) Free [Mass/volume] in Serum or Plasma [facility] Work Phone: Comment on above: Expected: 08/13/2022 , Expires: 10/13/2022 Start: 08-04-2022 DEPRESSION ASSESSMENT DEPRESSION ASS ESSMENT [facility] Start: 04-30-2022 Patient referral [facility] Work Phone: Start: 04-04-2022 Influenza vaccination INFLUENZA (#1) [facility] Start: 03-29-2022 Patient referral [facility] Work Phone: Start: 09-16-2021 COVID-19 VACCINE (4 - Booster for Moderna series) COVID-19 VACCINE (4 - Booster for Moderna series) [facility]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 Thyroid disorder Paroxysmal atrial tachycardia Syncope and collapse Chief Complaint 1 M FU remote ILR f/u 6 M FU Reason for Visit Essential hypertensi on History of loop recorder Thyroid disorder Paroxysmal atrial tachycardia Syncope and collapse History of loop recorder Paroxysmal supraventricular tachycardia Syncope and collapse Dyspnea on exertion Essential hypertension History of loop recorder Thyroid disorder Paroxysmal atrial tachycardia Syncope and collapse Chief Complaint 1 M FU remote ILR f/u 6 M FU DYSPNEA DYSPNEA Amb Documentation Reason for Visit Essential hypertensi on History of loop recorder Thyroid disorder Paroxysmal atrial tachycardia Syncope and collapse History of loop recorder Paroxysmal supraventricular tachycardia Syncope and collapse Dyspnea on exertion Essential hypertension History of loop recorder Thyroid disorder Paroxysmal atrial tachycardia Syncope and collapse Chief Complaint remote ILR f/u 6 M FU DYSPNEA DYSPNEA Amb Documentation Reason for Visit History of loop manuel rder Paroxysmal supraventricular tachycardia Syncope and collapse Dyspnea on exertion Essential hypertension History of loop recorder Thyroid disorder Paroxysmal atrial tachycardia Syncope and collapse Chief Complaint HYPERTHYROIDISM ABDOMINAL PAIN Chief Complaint HYPERTHYROIDISM ABDOMINAL PAIN UMBILICAL & INGUINAL HERNIA Reason for Visit Epigastric hernia H/O inguinal hernia Umbilical hernia without obstruction and without gangrene Chief Complaint Admit Date LUMBAR/ BACK PAIN August 16, 2024 1 2:46pm Pacer Check Remote August 21, 2024 1 1:05pm 6 M FU August 30, 2024 1 :29pm BACKACHE September 20, 2024 1:22pm LUMBAR SPINE October 07, 2024 7:58 am Room 3 October 07, 2024 8:11 am Reason for Visit Admit Date History of loop recorder August 30, 2 025 1:29pm Essential hypertension August 30 1:29pm Mitral regurgitation August 30, 2024 1:29pm Obesity (BMI 35.0-39.9 without comorbidi ty) August 30, 2024 1:29pm Paroxysmal supraventricular tachycardia August 30, 2024 1:29pm Vasovagal syncope August 30, 2024 1 :29pm Degenerative disc disease, lumbar October 07, 2024 7:58am Lumbar radiculopathy October 07, 2024 7:5 8am Chief Complaint Admit Date Pacer Check Remote November 20, 2024 11: 05pm Pacer Check Remote February 19, 2025 11:1 1pm Chief Complaint Admit Date Pacer Check Remote November 20, 2024 11: 05pm Pacer Check Remote February 19, 2025 11:1 1pm 6 M FU February 28, 2025 8:07 am Reason for Visit Admit Date History of loop recorder February 28, 2025 8:07am Essential hypertension February 28, 2025 8 :07am Mitral regurgitation February 28, 2025 8:0 7am Obesity (BMI 35.0-39.9 without comorbidi ty) February 28, 2025 8:07am Paroxysmal supraventricular tachycardia February 28, 2025 8:07am Vasovagal syncope February 28, 2025 8:07 am Chief Complaint Admit Date Pacer Check Remote February 19, 2025 11:1 1pm 6 M FU February 28, 2025 8:07 am LUMBAR SPINE March 31, 2025 1: 24pm Reason for Visit Admit Date History of loop recorder February 28, 2025 8:07am Essential hypertension February 28, 2025 8 :07am Mitral regurgitation February 28, 2025 8:0 7am Obesity (BMI 35.0-39.9 without comorbidi ty) February 28, 2025 8:07am Paroxysmal supraventricular tachycardia February 28, 2025 8:07am Vasovagal syncope February 28, 2025 8:07 am Degenerative disc disease, lumbar March 31, 2025 1:24pm Lumbar radiculopathy March 31, 2025 1 :24pm Obesity (BMI 30-39.9) March 31, 2025 1:24pm Thoracic kyphosis March 31, 2025 1: 24pm Health Concerns Infection Onset Date Last Indicated Resolved Time COVID-19 Rule-Out 08/19/2022 08/19/2022 08/19/2022 2:59 PM EST Additional Source Comments (unrecognized sect ion and content) No Status Records FoundNo Status Records FoundNo Status Records FoundNo Status Records FoundNo Status Records FoundNo Status Records Found INFORMATION SOURCE (unrecogn ized section and content) DATE CREATED AUTHOR 05/04/2019 [facility] DATE CREATED AUTHOR AUTHOR'S ORGANIZ ATION 09/07/2019 [facility] DATE CREATED AUTHOR AUTHOR'S ORGANIZ ATION 08/19/2022 [facility] DATE CREATED AUTHOR AUTHOR'S ORGANIZ ATION 06/04/2024 [facility] DATE CREATED AUTHOR AUTHOR'S ORGANIZ ATION 04/06/2025 [facility] DATE CREATED AUTHOR AUTHOR'S ORGANIZ ATION 04/19/2025 [facility] Goals (unrecognized section and content) Goals may be documented in a n alternate sectionGoals may be documented in an alternate sectionGoals may be documented in an alternate sectionGoals may be documented in an alternate sectionGoals may be documented in an alternate sectionGoals may be documented in an alternate sectionGoals may be documented in an alternate sectionGoals may be documented in an alternate sectionGoals may be documented in an alternate sectionGoals may be documented in an alternate sectionGoals may be documented in an alternate sectionGoals may be documented in an alternate sectionGoals may be documented in an alternate sectionGoals may be documented in an alternate sectionGoals may be documented in an alternate sectionGoals may be documented in an alternate sectionGoals may be documented in an alternate sectionGoals may be documented in an alternate sectionGoals may be documented in an alternate sectionGoals may be documented in an alternate sectionGoals may be documented in an alternate section Source Comments (unrecognize d section and content) In the event this informatio n is protected by the Federal Confidentiality of Alcohol and Drug Abuse Patient Records regulations: The Federal rules restrict any use of the information to criminally investigate or prosecute any alcohol or drug abuse patient.[facility] HospitalIn the event this information is protected by the Federal Confidentiality of Alcohol and Drug Abuse Patient Records regulations: The Federal rules restrict any use of the information to criminally investigate or prosecute any alcohol or drug abuse patient.[facility] HospitalIn the event this information is protected by the Federal Confidentiality of Alcohol and Drug Abuse Patient Records regulations: The Federal rules restrict any use of the information to criminally investigate or prosecute any alcohol or drug abuse patient.[facility] HospitalIn the event this information is protected by the Federal Confidentiality of Alcohol and Drug Abuse Patient Records regulations: The Federal rules restrict any use of the information to criminally investigate or prosecute any alcohol or drug abuse patient.[facility] HospitalIn the event this information is protected by the Federal Confidentiality of Alcohol and Drug Abuse Patient Records regulations: The Federal rules restrict any use of the information to criminally investigate or prosecute any alcohol or drug abuse patient.[facility] HospitalIn the event this information is protected by the Federal Confidentiality of Alcohol and Drug Abuse Patient Records regulations: The Federal rules restrict any use of the information to criminally investigate or prosecute any alcohol or drug abuse patient.[facility] HospitalIn the event this information is protected by the Federal Confidentiality of Alcohol and Drug Abuse Patient Records regulations: The Federal rules restrict any use of the information to criminally investigate or prosecute any alcohol or drug abuse patient.[facility] HospitalIn the event this information is protected by the Federal Confidentiality of Alcohol and Drug Abuse Patient Records regulations: The Federal rules restrict any use of the information to criminally investigate or prosecute any alcohol or drug abuse patient.[facility] HospitalIn the event this information is protected by the Federal Confidentiality of Alcohol and Drug Abuse Patient Records regulations: The Federal rules restrict any use of the information to criminally investigate or prosecute any alcohol or drug abuse patient.[facility] HospitalIn the event this information is protected by the Federal Confidentiality of Alcohol and Drug Abuse Patient Records regulations: The Federal rules restrict any use of the information to criminally investigate or prosecute any alcohol or drug abuse patient.[facility] HospitalIn the event this information is protected by the Federal Confidentiality of Alcohol and Drug Abuse Patient Records regulations: The Federal rules restrict any use of the information to criminally investigate or prosecute any alcohol or drug abuse patient.[facility] HospitalIn the event this information is protected by the Federal Confidentiality of Alcohol and Drug Abuse Patient Records regulations: The Federal rules restrict any use of the information to criminally investigate or prosecute any alcohol or drug abuse patient.[facility] HospitalIn the event this information is protected by the Federal Confidentiality of Alcohol and Drug Abuse Patient Records regulations: The Federal rules restrict any use of the information to criminally investigate or prosecute any alcohol or drug abuse patient.[facility] HospitalIn the event this information is protected by the Federal Confidentiality of Alcohol and Drug Abuse Patient Records regulations: The Federal rules restrict any use of the information to criminally investigate or prosecute any alcohol or drug abuse patient.[facility] HospitalIn the event this information is protected by the Federal Confidentiality of Alcohol and Drug Abuse Patient Records regulations: The Federal rules restrict any use of the information to criminally investigate or prosecute any alcohol or drug abuse patient.[facility] HospitalIn the event this information is protected by the Federal Confidentiality of Alcohol and Drug Abuse Patient Records regulations: The Federal rules restrict any use of the information to criminally investigate or prosecute any alcohol or drug abuse patient.[facility] HospitalIn the event this information is protected by the Federal Confidentiality of Alcohol and Drug Abuse Patient Records regulations: The Federal rules restrict any use of the information to criminally investigate or prosecute any alcohol or drug abuse patient.[facility] HospitalIn the event this information is protected by the Federal Confidentiality of Alcohol and Drug Abuse Patient Records regulations: The Federal rules restrict any use of the information to criminally investigate or prosecute any alcohol or drug abuse patient.[facility] HospitalIn the event this information is protected by the Federal Confidentiality of Alcohol and Drug Abuse Patient Records regulations: The Federal rules restrict any use of the information to criminally investigate or prosecute any alcohol or drug abuse patient.[facility] Reason for Visit (unrecogniz ed section and content) Reason Comments Radiology MRI Specialty Diagnoses / Procedures Referred By Radha garcía Referred To Contact Radiology / RADIO MRI Diagnoses Syncope and collapse Personal history of traumatic brain injury MRI BRAIN W/WO CONTRAST R55, Z87.820, ORDER IN SCANNED DOCUMENTS Procedures MRI BRAIN BRAIN STEM W/O W/CONTRAST MATERIAL MRI WWO NEU1 B [address] Hugo Krishna MD [address] [place] [address] Radio Mri [facility] [address] [place] [address] Referral ID Status Reason Start Date Expiration Date Visits Re quested Visits Authorized [id number] Closed 02/16/2022 04/02/2022 1 1 Reason Comments Received Outside Medical Records Records -31-pages Reason Comments Appointment New Patient Reason Comments Received Outside Medical Records Reason Comments Schedule Surgery EPS- EP Study +/- SV T RFA, +/- Loop Reason Comments Syncope Reason Comments Patient Education EPS Reason Comments Appointment Cancellation 01/22/23 Reason Comments Received Referral and Outside Medical Re cords Reason Comments Radiology CT Specialty Diagnoses / Procedures Referred By Contac t Referred To Contact CT IMAGING Diagnoses Other chest pain Procedures CTA CHEST (GATED) W IVCON CT ANGIOGRAPHY CHEST W/CONTRAST/NONCONTRAST Rosa Isela Santillan DO [address] [place] [address] Phone: tel: fax: [facility] [place] [address] Referral ID Status Reason Start Date Expiration Date V isits Requested Visits Authorized [id number] Closed Auto-Generate d Referral 03/02/2025 04/01/2026 1 1 Care Teams (unrecognized sec tion and content) Beader Tender Relationship Specialty Start Date End Date [facility]emma Christensen [address] [facility] [address] [place], [place] [id number] PCP - General 02/22/22 Beader Tender Relationship Specialty Start Date End Date Jemma Christensen [address] [facility] [place], [place] [id number] PCP - General 02/22/22 Beader Tender Relationship Specialty Start Date End Date Jemma Christensen(Historical) PCP - General 02/22/22 Beader Tender Relationship Specialty Start Date End Date Jemma Christensen(Historical) PCP - General 02/22/22 Beader Tender Relationship Specialty Start Date End Date Jemma Christensen DO [address] [facility] [address] [place], [place] [id number] PCP - General Family Medicine 07/03/22 Norberto Patino [address] [facility] [address] [place] [address] Referring Cardiology 07/03/22 Ale Stubbs MD [address] [place] [address] Primary Staff Physician Cardiology 07/03/22 Beader Tender Relationship Specialty Start Date End Date Jemma Christensen DO [address] [facility] [address] [place], [place] [id number] PCP - General Family Medicine 07/03/22 Norberto Patino [address] [place] [address] Referring Cardiology 07/03/22 Ale Stubbs MD [address] [place] [address] Primary Staff Physician Cardiology 07/03/22 Beader Tender Relationship Specialty Start Date End Date Jemma Christensen, DO [email or web address] [place] [address] PCP - General Family Medicine 07/03/22 Norberto Patino [address] [place] [address] Referring Cardiology 07/03/22 Ale Stubbs MD [address] [place] [address] Primary Staff Physician Cardiology 07/03/22 Beader Tender Relationship Specialty Start Date End Date Jemma Christensen, DO [email or web address] [place] [address] PCP - General Family Medicine 07/03/22 Norberto Patino [address] [place] [address] Referring Cardiology 07/03/22 Ale Stubbs MD [address] [place] [address] Primary Staff Physician Cardiology 07/03/22 Beader Tender Relationship Specialty Start Date End Date Jemma Christensen, DO [address] [place] [address] PCP - General Family Medicine 07/03/22 Norberto Patino [address] [place] [address] Referring Cardiology 07/03/22 Ale Stubbs MD [address] [place] [address] Primary Staff Physician Cardiology 07/03/22 Beader Tender Relationship Specialty Start Date End Date Jemma Christensen, DO [address] [email or web address] [address] [place] [address] PCP - General Family Medicine 07/03/22 Norberto Patino [address] [facility] [address] [place] [address] Referring Cardiology 07/03/22 Ale Stubbs MD [address] [place] [address] Primary Staff Physician Cardiology 07/03/22 Beader Tender Relationship Specialty Start Date End Date Jemma Christensen, [address] [email or web address] [address] [place] [address] PCP - General Family Medicine 07/03/22 Norberto Patino [address] [facility] [address] [place] [address] Referring Cardiology 07/03/22 Ale Stubbs MD [address] [place] [address] Primary Staff Physician Cardiology 07/03/22 Team Status: Active Member Role Status Dates Jemma Christensen , DO Primary Care Provider Active Team Status: Inactive Member Role Status Dates Jemma Christensen , DO Primary Care Provider, Referring Provider Active Etienne Madrid [employer] SUPERVISOR, [employer] SUPERVISOR-C Attending Provider Active Team Status: Inactive Member Role Status Dates Jemma Christensen , DO Primary Care Provider, Referring Provider Active Shyla Mack Attending Provider Active Team Status: Inactive Member Role Status Dates Jemma Jeffers Fermin , Primary Care Provider Active Etienne Madrid [employer] SUPERVISOR, [employer] SUPERVISOR-C Attending Provider Active Team Status: Active Member Role Status Dates Jemma Barnettnger , Primary Care Provider Active Etienne Madrid [employer] SUPERVISOR, [employer] SUPERVISOR-C Referring Provider, Other Provide r Active Dr. Cuauhtemoc Saldaña , DO Attending Provider Active Team Status: Active Member Role Status Dates Jemmalibrado Christensen , DO Primary Care Provider Active Etienne Madrid [employer] SUPERVISOR, [employer] SUPERVISOR-C Attending Provider Active Team Status: Active Member Role Status Dates Jemma Jeffers Fermin , Primary Care Provider Active Etienne Madrid [employer] SUPERVISOR, [employer] SUPERVISOR-C Attending Provider, Referring Pro vider Active Team Status: Inactive Member Role Status Dates Jemmalibrado Christensen , Primary Care Provider, Attending Provider Active Team Status: Inactive Member Role Status Dates Jemma Aury Christensen , Primary Care Provider Active Etienne Madrid [employer] SUPERVISOR, [employer] SUPERVISOR-C Attending Provider, Referring Pro vider Active Team Status: Inactive Member Role Status Dates Jemma Christensen DO Primary Care Provider Active Dr. Elmira Batista MD Attending Provider Act dick Team Status: Inactive Member Role Status Dates Jemma Christensen , Primary Care Provider Active Dr. Elmira Batista MD Attending Provider, Re ferring Provider Active Team Status: Active Member Role Status Dates Jemma Christensen DO Primary Care Provider Active Tiffany Stathopoulos , [employer] SUPERVISOR-C Attending Provider, Referr ing Provider Active Team Status: Inactive Member Role Status Dates Jemma Christensen DO Primary Care Provider Active Tiffany Stathopoulos , [employer] SUPERVISOR-C Attending Provider, Referr ing Provider Active Beader Tender Relationship Specialty Start Date End Date Jemma Christensen DO [address] [place], [place] [id number] PCP - General Family Medicine 07/03/22 Norberto Patino MD [address] [place], [place] [address] Referring Cardiology 07/03/22 Ale Stubbs MD [address] [place] [address] Primary Staff Physician Cardiology 07/03/22 Team Status: Inactive Member Role Status Katelin Christensen DO Primary Care Provider, Referring Provider Active Dr. Juana Heredia MD Attending Provider Active Team Status: Inactive Member Role Status Katelin Christensen DO Primary Care Provider Active Dr. Juana Heredia MD Attending Provider, Referring P tristan Active Team Status: Active Member Role Status Katelin Barrios MD Primary Care Provider Active Team Status: Inactive Member Role Status Katelin Barrios MD Primary Care Provider Active St art: August 16, 2024 End: August 16, 2024 Reggie Barrios MD Attending Provider Active Start : August 16, 2024 End: August 16, 2024 Reggie Barrios MD Referring Provider Active Start : August 16, 2024 End: August 16, 2024 Team Status: Inactive Member Role Status Katelin Barrios MD Primary Care Provider Active St art: August 21, 2024 End: August 21, 2024 Dr. Josue Lindsay MD Attending Provider Active S tart: August 21, 2024 End: August 21, 2024 Team Status: Inactive Member Role Status Katelin Barrios MD Primary Care Provider Active St art: August 30, 2024 End: August 30, 2024 Reggie Barrios MD Referring Provider Active Start : August 30, 2024 End: August 30, 2024 Dr. Eros Telles MD Attending Provider Active Start: August 30, 2024 End: August 30, 2024 Team Status: Inactive Member Role Status Katelin Barrios MD Primary Care Provider Active St art: September 20, 2024 End: September 20, 2024 Reggie Barrios MD Attending Provider Active Start : September 20, 2024 End: September 20, 2024 Reggie Barrios MD Referring Provider Active Start : September 20, 2024 End: September 20, 2024 Team Status: Inactive Member Role Status Katelin Barrios MD Primary Care Provider Active St art: October 07, 2024 End: October 07, 2024 Reggie Barrios MD Referring Provider Active Start : October 07, 2024 End: October 07, 2024 LAVON Gary Attending Provider Active Star t: October 07, 2024 End: October 07, 2024 Team Status: Inactive Member Role Status Katelin Barrios MD Primary Care Provider Active St art: October 07, 2024 End: October 07, 2024 Dr. Josue Lindsay MD Attending Provider Active S tart: October 07, 2024 End: October 07, 2024 Team Status: Inactive Member Role Status Katelin Barrios MD Primary Care Provider Active St art: October 22, 2024 End: October 22, 2024 Reggie Barrios MD Attending Provider Active Start : October 22, 2024 End: October 22, 2024 Reggie Barrios MD Referring Provider Active Start : October 22, 2024 End: October 22, 2024 Team Status: Active Member Role/Relationship Status Katelin Barrios MD Primary Care Provider Active Team Status: Inactive Member Role/Relationship Status Katelin Barrios MD Primary Care Provider Active St art: November 20, 2024 End: November 20, 2024 Dr. Josue Lindsay MD Attending Provider Active S tart: November 20, 2024 End: November 20, 2024 Team Status: Inactive Member Role/Relationship Status Katelin Barrios MD Primary Care Provider Active St art: February 19, 2025 End: February 19, 2025 Dr. Josue Lindsay MD Attending Provider Active S tart: February 19, 2025 End: February 19, 2025 Team Status: Inactive Member Role/Relationship Status Katelin Barrios MD Primary Care Provider Active St art: February 28, 2025 End: February 28, 2025 Regige Barrios MD Referring Provider Active Start : February 28, 2025 End: February 28, 2025 Etienne Madrid [employer] SUPERVISOR, [employer] SUPERVISOR-C Attending Provider Active S tart: February 28, 2025 End: February 28, 2025 Beader Tender Relationship Specialty Start Date End Date Jemma Christensen DO [address] [place] [address] PCP - General Family Medicine 07/03/22 Norberto Patino MD [address] [place] [address] Referring Cardiology 07/03/22 Ale Stubbs MD [address] [place] [address] Primary Staff Physician Cardiology 07/03/22 Beader Tender Relationship Specialty Start Date End Date Jemma Christensen DO [address] [place] [address] PCP - General Family Medicine 07/03/22 Norberto Patino MD [address] [place] [address] Referring Cardiology 07/03/22 Ale Stubbs MD [address] [place] [address] Primary Staff Physician Cardiology 07/03/22 Beader Tender Relationship Specialty Start Date End Date Jemma Christensen DO [address] [place] [address] PCP - General Family Medicine 07/03/22 Norberto Patino MD [address] [address] Referring Cardiology 07/03/22 Ale Stubbs MD [address] [place] [address] Primary Staff Physician Cardiology 07/03/22 Beader Tender Relationship Specialty Start Date End Date Jemma Christensen DO [address] [place] [address] PCP - General Family Medicine 07/03/22 Norberto Patino MD [address] [address] Referring Cardiology 07/03/22 Ale Stubbs MD [address] [place] [address] Primary Staff Physician Cardiology 07/03/22 Beader Tender Relationship Specialty Start Date End Date Jemma Christensen Mima DO [address] [address] PCP - General Family Medicine 07/03/22 Norberto Patino MD [address] [address] Referring Cardiology 07/03/22 Rosa Isela Santillan DO [address] [place] [address] Primary Staff Physician Cardiology 03/03/25 Team Status: Inactive Member Role/Relationship Status Dates Reggie Barrios MD Primary Care Provider Active St art: February 19, 2025 End: February 19, 2025 Dr. Josue Lindsay MD Attending Provider Active S tart: February 19, 2025 End: February 19, 2025 Team Status: Inactive Member Role/Relationship Status Dates Reggie Barrios MD Primary Care Provider Active St art: February 28, 2025 End: February 28, 2025 Reggie Barrios MD Referring Provider Active Start : February 28, 2025 End: February 28, 2025 Etienne Madrid [employer] SUPERVISOR, [employer] SUPERVISOR-C Attending Provider Active S tart: February 28, 2025 End: February 28, 2025 Team Status: Inactive Member Role/Relationship Status Dates Reggie Barrios MD Primary Care Provider Active St art: March 31, 2025 End: March 31, 2025 Reggie Barrios MD Referring Provider Active Start : March 31, 2025 End: March 31, 2025 Dr. Mj Villanueva MD Attending Provider Active Start: March 31, 2025 End: March 31, 2025 Beader Tender Relationship Specialty Start Date End Date Jemma Christensen DO [address] [address] PCP - General Family Medicine 07/03/22 Norberto Patino MD [address] [address] Referring Cardiology 07/03/22 Rosa Isela Santillan DO [address] [place] [address] Primary Staff Physician Cardiology 03/03/25 FOR RECORDS PERTAINING TO PATIENTS WHO ARE [...] BE BASED ON THE PRIMARY CLINICAL RECORDS. [facility] [employer] provides no warranty or guarantee of the accuracy or completeness of information in this document.
== END | disposition home or self-care (01) ==
LOC: MRI 16:47
PROVIDERS: PCP Family Medicine; Referring Provider Orthopaedic Surgery Orthopaedic Surgery of the Spine; Visit Provider Orthopaedic Surgery Orthopaedic Surgery of the Spine
DX: M54.14 Radiculopathy, thoracic region (principal)
CPT/HCPCS: 72146

== ENCOUNTER → 2025-04-25 | Outpatient (CLI) | payer OTHER, SELFPAY ==
--- NOTE | 2025-04-25 15:07 | US_ITS ---
PROCEDURE: THYROID 04/25/2025 REASON FOR EXAM: NONTOXIC SINGLE THYROID NODULE TECHNIQUE: Procedure Code: USTHY Modality: US Procedure: THYROID COMPARISON: Ultrasound thyroid 05/05/2023 FINDINGS: Right thyroid lobe size: 6 x 3.1 x 2.3 cm Left thyroid lobe size: 5.1 x 2.4 x 1.9 cm Isthmus: 0.5 cm Background parenchymal echotexture is homogeneous. Nodules: 1. Lobe: Right, Location: Mid to lower, Size: 2.6 x 2.1 x 1.9 cm previously measured 2.4 x 2.2 x 2.1, Stability: Increased in size Composition: Mixed cystic and solid (+1) Echogenicity: Hypoechoic (+2) Margin: Lobulated (+2) Shape: Wider than tall (+0) Echogenic Foci: None (+0) TI-RADS: <2 = TR 1 * 2 = TR 2 * 3 = TR 3 * 4-6 = TR 4 * >6 = TR 5 TI-RADS 3 (overall there is interval increase in size when compared to prior study. 2. Lobe: Right, Location: Lower, Size: 2.6 x 1.8 x 2.6 cm previously measured 3 x 2.4 x 2.7 stability: Smaller Composition: Mixed cystic and solid (+1) Echogenicity: Hyper to Isoechoic (+1) Margin: Ill-defined (+0) Shape: Wider than tall (+0) Echogenic Foci: None (+0) TI-RADS: <2 = TR 1 * 2 = TR 2 * 3 = TR 3 * 4-6 = TR 4 * >6 = TR 5 TI-RADS 2 3. Lobe: Left, Location: Lower, Size: 2.2 x 1.3 x 1.8 cm previously measured 2.4 x 1.2 x 1.7 stability: Smaller Composition: Mixed cystic and solid (+1) Echogenicity: Hyper to Isoechoic (+1) Margin: Ill-defined (+0) Shape: Wider than tall (+0) Echogenic Foci: None (+0) TI-RADS: <2 = TR 1 * 2 = TR 2 * 3 = TR 3 * 4-6 = TR 4 * >6 = TR 5 TI-RADS 1 4-Lobe: Left, Location: Lower, Size: 0.5 x 0.3 x 0.3 cm previously measured 0.5 x 0.3 x 0.5 stability: Smaller Composition: Cystic or mostly cystic (+0) Echogenicity: Hyper to Isoechoic (+1) Margin: Smooth (+0) Shape: Wider than tall (+0) Echogenic Foci: None (+0) TI-RADS: <2 = TR 1 * 2 = TR 2 * 3 = TR 3 * 4-6 = TR 4 * >6 = TR 5 TI-RADS 1 5-Lobe: Left, Location: Lower, Size: 0.5 x 0.3 x 0.3 cm stability: N/A Composition: Mixed cystic and solid (+1) Echogenicity: Hyper to Isoechoic (+1) Margin: Smooth (+0) Shape: Wider than tall (+0) Echogenic Foci: None (+0) TI-RADS: <2 = TR 1 * 2 = TR 2 * 3 = TR 3 * 4-6 = TR 4 * >6 = TR 5 TI-RADS 1. US/Thyroid IMPRESSION: Right thyroid lobe is enlarged. There is redemonstration of complex right steve nant nodules for which FNA is recommended for further characterization if not already performed. Left-sided thyroid nodules are also visualized dominant nodules measures up to 2.2 cm. Continued attention on follow-up imaging is recommended. RECOMMENDATION: Based on most suspicious nodule. Nodule size = largest diameter Only evaluate nodule if =>5 mm. Growth > 20% in 2 dimensions = worsening. Follow up to 4 nodules. Recommend biopsy for no more than 2 nodules. Reading Location: [id number]
== END | disposition home or self-care (01) ==
LOC: US 15:05
PROVIDERS: PCP Family Medicine; Referring Provider Family Medicine; Visit Provider Family Medicine
DX: E04.1 Nontoxic single thyroid nodule (principal)
CPT/HCPCS: 76536

== ENCOUNTER → 2025-05-13 | Outpatient (CLI) | payer OTHER, SELFPAY ==
--- NOTE | 2025-05-13 08:00 | CYSPIN_PTH ---
PATIENT: NAKUL HASSAN LOC: [facility] U#:[id number] AGE/SX: 40/M ROOM: RE05/13/[address]: Dr. Lavelle Heredia MD : 1985 BED: DIS: 05/13/2025 SPEC #: [id number] RECD: 05/13/25 09:49 STATUS: SIA ESTELLA #: [id number] CINTIA: 05/13/25 08:[address]: Lavelle Heredia DEPT: CYTOLOGY RECD BY: Oleg Guan ENTERED: 05/13/25 10:36 SP TYPE: CYSPIN FL OTHR DR: Reggie Barrios MD Tissues: A - Thyroid gland, NOS Procedures: Pap Stain (control) Special Stain Group II Diff Quik Stain (control) Cytospin Fluid Cytology Other HEADER OPERATION: Fine needle aspiration of right thyroid nodule PRE-OP DIAGNOSIS: Right thyroid nodule TISSUE SUBMITTED: A- Right thyroid nodule for cytology DIAGNOSIS CYTOLOGY A. Right thyroid nodule, FNA: * Atypia of undetermined significance COMMENT Per recommendations and a clinician-approved plan (a call was made to the referring doctor about the recommendation), genomic testing (Afirma) has been submitted. Results will be reported as an addendum and faxed to clinician. CYTOLOGY STUDY Slides are reviewed. CYTOLOGY GROSS A. Received is 30 ml of cytolyt with particles and 4 smears labeled with the patient's name and and designated per the requisition as "Right thyroid nodule." Submitted for cytology and cytospin. 05/13/2025 CPT: 96219,20946 ADDENDUM ADDENDUM ADDENDUM ADDENDUM ADDENDUM ADDENDUM ADDENDUM ADDENDUM ADDENDUM ADDENDUM ADDENDUM ADDENDUM 05/27/2025 08:40 ADDENDUM 05/27/2025 08:40 ADDENDUM 05/27/2025 08:40 ADDENDUM 05/27/2025 08:40 ADDENDUM 05/27/2025 08:40 AFIRMA RESULTS REPORT - SPECIMEN A RESULTS INTERPRETATION: The result of this 2.6 cm [place] III nodule A is Afirma GSC Suspicious, which suggests a low risk of cancer of approximately 50%. However, the risk of malignancy from being Afirma GSC Suspicious and TSHR p. [id number] positive is approximately 25%. Measurement of serum TSH is recommended. Clinical correlation and surgical resection or active surveillance should be considered. DNA analysis of the TERT promoter region was not ordered. Please see complete report in e-chart or EMR
[2025-05-16 16:09] LABS: Thyroid Stim Immunoglob <0.10 IU/L (0.00-0.55)
== END | disposition home or self-care (01) ==
LOC: LAB 09:32 → LABSPEC 10:08
PROVIDERS: PCP Family Medicine; Referring Provider Surgery; Visit Provider Surgery
DX: E04.1 Nontoxic single thyroid nodule (principal)
CPT/HCPCS: 36415; 84445; 88108; 88161; 88313

== ENCOUNTER → 2025-06-01 | Outpatient (CLI) | payer OTHER, SELFPAY ==
--- NOTE | 2025-06-01 08:18 | NM_ITS ---
PROCEDURE: THYROID IMAGE QUANT MEASURE 06/01/2025 REASON FOR EXAM: THYROID NODULE TECHNIQUE: Procedure Code: NMTHYQUANT Modality: NM Procedure: THYROID IMAGE QUANT MEASURE Thyroid uptake calculated at 4 and 24 hours after 318 microcuries I-131 orally as a capsule. COMPARISON: Thyroid ultrasound of 04/25/2025 and nuclear medicine thyroid study of 07/10/2022... FINDINGS: Thyroid Uptake: 4.09 Hours: 14.8 % (normal range 5 to 15%) 24.22 Hours: 38.9 % (normal range 10 to 35%) Thyroid Scan: Inhomogeneous uptake of both thyroid lobes is seen, with relative paucity of the left compared with the right. Correlating with the recent ultrasound examination, this is consistent with nodularity and inhomogeneity on the ultrasound examination. NM/Thyroid Image Quant Measure IMPRESSION: Mildly elevated 24 hour thyroid uptake value of 38.9%. This is somewhat reduce d from the prior study of 2021. Additional findings as noted. Reading Location: [place] [address]
== END | disposition home or self-care (01) ==
LOC: NM 08:18
PROVIDERS: PCP Family Medicine; Referring Provider Surgery; Visit Provider Surgery
DX: E04.1 Nontoxic single thyroid nodule (principal)
CPT/HCPCS: 78014; A9516

== ENCOUNTER → 2025-06-27 | Outpatient (CLI) | payer OTHER, SELFPAY ==
--- NOTE | 2025-06-27 13:30 | CYSPIN_PTH ---
PATIENT: NAKUL HASSAN LOC: [facility] U#:[id number] AGE/SX: 40/M ROOM: RE06/27/[address]: Dr. Lvaelle Heredia MD : 1985 BED: DIS: 06/27/2025 SPEC #: [id number] RECD: 06/27/25 14:34 STATUS: SIA REM[place]ac[place] #: [id number] CINTIA: 06/27/25 13:[address]: Lavelle Heredia DEPT: CYTOLOGY RECD BY: Aria Nagy ENTERED: 06/28/25 08:31 SP TYPE: CYSPIN FL OTHR DR: Reggie Barrios MD Tissues: A - Thyroid gland, NOS B - Thyroid gland, NOS Procedures: Pap Stain (control) Special Stain Group II Diff Quik Stain (control) Cytospin Fluid Cytology Other HEADER OPERATION: Fine needle aspiration of left thyroid nodule PRE-OP DIAGNOSIS: Left thyroid nodule TISSUE SUBMITTED: A- Left thyroid nodule, B- Left thyroid cyst aspirate DIAGNOSIS CYTOLOGY A. Left thyroid, nodule, FNA (cytospin, smear x4): - Atypical cells (TBS III). - Many macrophages and hemosiderin, suggestive of a previous biopsy procedure, partially obscuring the cellularity. B. Left thyroid, cyst, FNA (cytospin): - Nondiagnostic (TBS I). - Essentially acellular specimen; few macrophages observed. COMMENT Selected slides/images were reviewed in intradepartmental consultation by Drew Galdamez, Elmira Mead, and Doris Arellano (pathology department. CYTOLOGY STUDY Slides are reviewed. CYTOLOGY GROSS A. Received is 30 ml of [id number] cytolyt with particles and 4 smears labeled with the patient's name and and designated per the requisition as Left thyroid nodule. Submitted for cytology and cytospin. B. Received is 2 ml of red-cloudy fluid labeled with the patient's name and and designated per the requisition as Left thyroid cyst aspirate. Submitted for cytology and cytospin. Mr 06/28/2025 CPT: 90509,73051 ADDENDUM ADDENDUM ADDENDUM ADDENDUM ADDENDUM ADDENDUM ADDENDUM ADDENDUM ADDENDUM ADDENDUM 07/13/2025 09:31 ADDENDUM 07/13/2025 09:31 ADDENDUM 07/13/2025 09:31 ADDENDUM 07/13/2025 09:31 ADDENDUM 07/13/2025 09:31 AFIRMA RESULTS REPORT - SPECIMEN A RESULTS INTERPRETATION: The result of this 2.2 cm [place] III nodule A is Afirma GSC benign, which suggests a low risk of cancer of approximately 4%. Treatment like a cytologically benign nodule may be appropriate, including clinical correlation. Afirma XA is not performed on [facility] Benign nodules. TERT promoter region analysis is not performed on GSC Benign nodules. Please see complete report in e-chart or EMR
== END | disposition home or self-care (01) ==
PROVIDERS: PCP Family Medicine; Referring Provider Surgery; Visit Provider Surgery
DX: E04.1 Nontoxic single thyroid nodule (principal)
CPT/HCPCS: 88108; 88161; 88313